=== PATIENT | female | born 1950 | race Caucasian/White ===

== ENCOUNTER 2017-02-25 08:50 | Day surgery (SDC) | payer MEDICARE, OTHER ==
[~2017-02-25] VITALS: Ht 170.2 cm; Wt 90.9 kg
[~2017-02-25 08:50] MED LIST: ADOXA100 MG PO; BONIVA150 MG; CARDIZEM CD120 MG PO; CLARITIN 10 MG10 MG PO; EFFEXOR75 MG PO; FLUTICASONE PRO16 GM NS; NORCO 10/325 TA1 TA1 PO; SINGULAIR10 MG PO; SYNTHROID25 MCG PO; SYNTHROID50 MCG PO; VITAMIN B-6100 MG; VITAMIN D3400 UNI1; VITAMIN D50000 UNIT PO
[2017-02-25 09:27] LABS: BASOPHILS 0.7 % (0-2); HEMATOCRIT 48.5 % (36.0-48.0); HEMOGLOBIN 16.3 g/dL (12-16); LYMPHOCYTES 25.4 % (15-50); MCH 34.5 pg (26.0-34.0); MCHC 33.6 g/dL (31.0-37.0); MCV 102.5 fL (80.0-100.0); MEAN PLATELET VOLUME 9.9 fL (7.4-10.4); MONOCYTES 11.6 % (2-11); NEUTROPHILS 60.3 % (40-80); RBC 4.73 10x6/uL (4.00-5.40); RDW 14.2 % (11.5-14.5); WBC 4.1 10x3/uL (4.8-10.8)
[2017-02-25 09:41] LABS: PLATELET COUNT 147 10x3/uL (130-400)
[2017-02-25 09:42] LABS: CALC OSMOLALITY 273 mosm/kg (275-300); CALCIUM 9.3 mg/dL (8.5-10.1); CARBON DIOXIDE 28.5 mmol/L (21.0-32.0); CHLORIDE - SERUM 100 mmol/L (98-107); CREATININE - SERUM 0.8 mg/dL (0.6-1.3); GLUCOSE 107 mg/dL (74-106); SODIUM 138 mmol/L (136-145); UREA NITROGEN 8 mg/dL (7-18); eGFR NON AFRICAN AMERICAN 75 mL/min (90-120)
[2017-02-25 10:29] VITALS: BP 149/90; Ht 170.2 cm; Wt 90.9 kg
--- NOTE | 2017-02-25 11:02 | NUR ---
INFORMED VALDEMAR LEBRON, (ANESTHESIA FOR GI) THAT SHE STATES FENTANYL CAUSED HER TO GO INTO ATRIAL FIB LAST TIME SHE HAD A GI PROCEDURE. SHE STATES "IT WAS THE [facility]". NOTIFIED OF PT'S STATEMENT OF THAT.
--- NOTE | 2017-02-25 16:57 | NUR ---
1300-RECD FROM GI LAB. ALERT. DR SALDIVAR IN TO REPORT FINDINGS. 1315-FULL LIQUIDS SERVED. PASSING FLATUS. 1330-IV D/C 1345-DISCHARGE INSTRUCTIONS REVIEWED. 1400-D/C HOME VIA WHEELCHAIR WITH FRIEND, BOLIVAR.
--- NOTE | 2017-02-26 11:02 | OP ---
PATIENT NAME: JOYCE BULLARD MEDICAL RECORD: [id number] :46 [facility] AD[facility]ION DATE: SURGEON: JI SALDIVAR DO DATE OF OPERATION: 02/25/2017 PROCEDURE: Colonoscopy with polypectomy. INDICATIONS FOR PROCEDURE: Colorectal cancer screening. SCOPE: Olympus video pediatric colonoscope. MEDICATIONS: Propofol 450 mg IV per anesthesia. WITHDRAWAL TIME: 12 minutes. ESTIMATED BLOOD LOSS: Minimal. COMPLICATIONS: None. FINDINGS: Informed consent was given. The patient was made comfortable with the above medication. After reaching an adequate level of sedation by slow IV push, the patient was placed on her left side. A digital rectal examination was performed and was normal. The endoscope was then advanced under direct visualization through the rectum to the cecum with visualization of the appendiceal orifice and ileocecal valve. The endoscope was slowly withdrawn and the mucosa was carefully examined. The prep quality was fair. In the ascending colon, there was a single benign-appearing sessile polyp, which measured approximately 6 mm in diameter. It was removed using a hot snare in 1 piece and completely retrieved. In the descending colon, there were two separate benign-appearing sessile polyps, which ranged in size from 4-6 mm in diameter. They were both removed using a hot snare in 1 piece and completely retrieved. In the rectum, there was another benign-appearing sessile polyp, which measured approximately 5-6 mm in diameter. It was removed using a hot snare in 1 piece and completely retrieved. There was evidence of mild diverticulosis of the sigmoid colon. Retroflexion was performed in the rectum with visualization of grade I internal hemorrhoids without bleeding. The endoscope was then withdrawn from the patient. The patient tolerated the procedure well and there were no complications. IMPRESSION: 1. Four separate benign-appearing sessile polyps as described above removed using a hot snare. 2. Mild diverticulosis of the sigmoid colon. 3. Grade I internal hemorrhoids without bleeding. PLAN AND RECOMMENDATIONS: 1. Discharge home when recovery parameters are met. 2. Follow up biopsy specimen results. 3. High fiber diet. 4. Continue current medications. 5. Recall colonoscopy in 3 years based on the number and types of polyps removed on today's examination. TRANSINT:[id number] Voice Confirmation ID: [id number] DOCUMENT ID: [id number] OPERATIVE REPORT [id number] JOYCE BULLARD JI SALDIVAR DO at 1102 CC: [id number] DICTATION DATE: 02/25/17 1242 ENVIRONMENTAL SERVICES FLOOR TECH: 02/25/17 1257 [facility] [place] 02/25/17 [id number] [place] [address]
== END 2017-02-25 14:00 | disposition home or self-care (01) ==
LOC: D.OPS 08:50
PROVIDERS: Anesthesiology
DX: Z12.11 Encounter for screening for malignant neoplasm of colon (principal); K63.5 Polyp of colon; K64.0 First degree hemorrhoids; K57.30 Diverticulosis of large intestine without perforation or abscess without bleeding; Z01.812 Encounter for preprocedural laboratory examination

== ENCOUNTER 2018-04-08 00:36 | Inpatient (IN) | payer MEDICARE, OTHER ==
[~2018-04-08] VITALS: Ht 170.2 cm; Wt 108.9 kg
[2018-04-08] VITALS (45 sets, daily range): BP systolic 78–177; BP diastolic 34–93; Ht 170.2 cm; Wt 108.9 kg
[~2018-04-08 00:36] MED LIST changes: -VITAMIN B-6100 MG; +VITAMIN B-6100 MG PO; -VITAMIN D3400 UNI1; +VITAMIN D3400 UNI1 PO
[2018-04-08] MEDS ORDERED: ELIQUIS5 MG PO (00:39)
[2018-04-08] MEDS ORDERED: LIPITOR40 MG PO (00:40)
[2018-04-08] MEDS ORDERED: BAYER CHEWABLE81 MG PO (00:40)
[2018-04-08 01:15] LABS: EOSINOPHILS 1.6 % (0-7); HEMATOCRIT 20.7 % (36.0-48.0); IMMATURE GRANULOCYTES 0.2 % (0-5); LYMPHOCYTES 18.9 % (15-50); MCH 30.1 pg (26.0-34.0); MCHC 31.9 g/dL (31.0-37.0); MCV 94.5 fL (80.0-100.0); MEAN PLATELET VOLUME 8.9 fL (7.4-10.4); MONOCYTES 17.6 % (2-11); NEUTROPHILS 60.7 % (40-80); PLATELET COUNT 127 10x3/uL (130-400); RBC 2.19 10x6/uL (4.00-5.40); RDW 17.4 % (11.5-14.5); WBC 5.1 10x3/uL (4.8-10.8)
[2018-04-08 01:18] LABS: HEMOGLOBIN 6.6 g/dL (12-16)
[2018-04-08 01:21] LABS: APTT 39.1 SECONDS (22.8-39.4); INR 1.94 (0.85-1.17); PROTIME 21.5 SECONDS (11.6-15.0)
[2018-04-08 01:35] LABS: ALBUMIN 2.2 g/dL (3.4-5.0); ALKALINE PHOSPHATASE 79 U/L (46-116); ALT (SGPT) 27 U/L (10-68); BILIRUBIN - TOTAL 1.52 mg/dL (0.2-1.3); CALC OSMOLALITY 278 mosm/kg (275-300); CARBON DIOXIDE 25.3 mmol/L (21.0-32.0); CHLORIDE - SERUM 104 mmol/L (98-107); CREATININE - SERUM 0.6 mg/dL (0.6-1.3); GLUCOSE 133 mg/dL (74-106); POTASSIUM - SERUM 3.2 mmol/L (3.5-5.1); PROTEIN - SERUM 5.7 g/dL (6.4-8.2); SODIUM 139 mmol/L (136-145); UREA NITROGEN 10 mg/dL (7-18); eGFR NON AFRICAN AMERICAN > 90 mL/min (90-120)
[2018-04-08 02:00] LABS: CKMB 1.4 U/L (0.0-3.6); CREATINE KINASE 50 UL (21-215); MAGNESIUM - SERUM 1.6 mg/dL (1.8-2.4)
[2018-04-08 02:01] LABS: TROPONIN-I 0.195 ng/mL (0.000-0.060)
--- NOTE | 2018-04-08 02:16 | NUR ---
CONSENT SIGNED FOR BLOOD TRANSFUSION.
--- NOTE | 2018-04-08 02:45 | NUR ---
BLOOD TRANSFUSION STARTED.
--- NOTE | 2018-04-08 02:50 | NUR ---
PT STATES SHE NEEDS TO HAVE A BM. REFUSES BEDPAN. ASSISTED PT TO BSC. APPX 400CC DARK TARRY STOOL PRESENT.
--- NOTE | 2018-04-08 03:12 | NUR ---
REPORT TO JULIANO BRAVO.
--- NOTE | 2018-04-08 03:12 | NUR ---
REPORT TO JULIANO BRAVO
--- NOTE | 2018-04-08 04:02 | NUR ---
DR. HODGE CONTACTED @ REQUEST OF ICU. HE ADVISED PT SHOULD CONTINUE TO RECEIVE BLOOD TO CORRECT ELEVATED HR.
--- NOTE | 2018-04-08 04:15 | NUR ---
PT ARRIVED ON UNIT VIA STRETCHER ACCOMPANIED BY ER STAFF. PT HOOKED UP TO ALL ICU MONITORS, VITAL SIGNS TAKEN. HEMODYNAMICALLY STABLE AT THIS TIME.
--- NOTE | 2018-04-08 04:45 | NUR ---
1 UNIT PRBC INITIATED.
--- NOTE | 2018-04-08 08:20 | NUR ---
PT RESTING IN BED, A/O, RESP EVEN AND UNLABORED. IV TO LEFT WRIST WITH NS@100ML/HR INFUSING VIA PUMP, SITE WITHOUT REDNESS OR EDEMA. DENIES PAIN OR ABDOMINAL TENDERNESS AT THIS TIME. ASSISTED TO BSC, PT BEING ABLE TO VOID. DENIES FURTHER NEEDS AT THIS TIME. CL WITHIN REACH. WILL CONTINUE TO MONITOR. CONSENTS FOR EGD OBTAINED AT THIS TIME.
[2018-04-08 08:43] LABS: HEMATOCRIT 26.2 % (36.0-48.0); HEMOGLOBIN 8.5 g/dL (12-16)
--- NOTE | 2018-04-08 10:03 | NUR ---
REC'D TO CVICU. ALL MONITORING EQUIPMENT ATTACHED AND ALARMS SET.
--- NOTE | 2018-04-08 15:55 | NUR ---
REC'D CALL FROM GI LAB. PREOP MEDS GIVEN. VOICE HERE.
--- NOTE | 2018-04-08 18:18 | NUR ---
UGI DONE BY DR MASCORRO. SEDATION BY ANESTHESIA. VSS. PT AWAKE AND ALERT. STARTED CL DIET ORDERED.
--- NOTE | 2018-04-08 19:10 | NUR ---
REC'D TO CARE. BUSINESS AREA MANAGER PER FLOWSHEET. PT AWAKE AND ORIENTED. VSS. GIVEN CLEAR LIQUIDS PER MD ORDER AND PT REQUEST. PROTONIX GTT INFUSING TO L PIV, NO REDNESS OR SWELLING AT SITE. CM - NSR. PT DENIES PAIN OR OTHER NEEDS. C/L IN REACH.
--- NOTE | 2018-04-08 19:40 | NUR ---
UP TO BSC. LOOSE BLACK/GREEN STOOL AND URINE. TEDDY-CARE DONE. ADULT BRIEF ON PER PT REQUEST. BACK TO BED. ALARMS ON AND C/L IN REACH.
[2018-04-08] MEDS ORDERED: TOPROL XL50 MG PO (20:21)
--- NOTE | 2018-04-08 20:26 | NUR ---
DR. YANG PAGED AND NOTIFIED OF SBP 177, CM - SR 88. CORDARONE GTT NOT INFUSING. NEW ORDER REC'D.
--- NOTE | 2018-04-08 20:35 | NUR ---
DR. BRADY PAGED AND UPDATED, ORDERS CLARIFIED. NEW ORDERS REC'D.
--- NOTE | 2018-04-08 20:43 | NUR ---
PT VIKA UPDATED OVER PHONE WITH PASSWORD AND PTS PERMISSION.
[2018-04-08 21:18] LABS: HEMATOCRIT 26.3 % (36.0-48.0); HEMOGLOBIN 8.8 g/dL (12-16)
--- NOTE | 2018-04-08 22:00 | NUR ---
BEGIN 1 UNIT PRBC TRANSFUSION PER MD ORDER, PER HOSPITAL PROTOCOL. PT VERBALIZES CONSENT AND UNDERSTANDING OF S/S TO REPORT. ALARMS ON AND C/L IN REACH.
--- NOTE | 2018-04-08 22:15 | NUR ---
PRBC INFUSING WITH NO ADVERSE S/S.
--- NOTE | 2018-04-08 23:03 | NUR ---
REASSESSMENT PER FLOWSHEET, NO ACUTE CHANGES. PRBCS INFUSING WITHOUT DIFFICULTY. PT DENIES PAIN OR NEEDS. REPOSITIONED SELF TO R SIDE. VSS. C/L IN REACH.
[2018-04-09] VITALS (14 sets, daily range): BP systolic 130–171; BP diastolic 55–76
--- NOTE | 2018-04-09 | NUR ---
PT TO BSC, VOIDED 200ML CLOUDY YELLOW URINE. TEDDY-CARE PER PT AND BACK TO BED. PRBC INFUSING WITH OUT DIFFICULTY.
--- NOTE | 2018-04-09 01:00 | NUR ---
PRBCS COMPLETE, NO SIGN OF ADVERSE RXN.
--- NOTE | 2018-04-09 03:30 | NUR ---
REASSESSMENT PER FLOWSHEET, NO ACUTE CHANGES. VSS.
--- NOTE | 2018-04-09 05:00 | NUR ---
RESTING QUIETLY, NO SIGN OF DISTRESS.
[2018-04-09 05:49] LABS: BASOPHILS 1.2 % (0-2); EOSINOPHILS 3.8 % (0-7); HEMATOCRIT 29.2 % (36.0-48.0); HEMOGLOBIN 9.5 g/dL (12-16); IMMATURE GRANULOCYTES 0.2 % (0-5); LYMPHOCYTES 18.9 % (15-50); MCH 29.2 pg (26.0-34.0); MCHC 32.5 g/dL (31.0-37.0); MEAN PLATELET VOLUME 9.2 fL (7.4-10.4); NEUTROPHILS 57.9 % (40-80); PLATELET COUNT 123 10x3/uL (130-400); RDW 19.3 % (11.5-14.5); WBC 4.2 10x3/uL (4.8-10.8)
[2018-04-09 05:51] LABS: CALC OSMOLALITY 276 mosm/kg (275-300); CARBON DIOXIDE 25.2 mmol/L (21.0-32.0); CHLORIDE - SERUM 106 mmol/L (98-107); CREATININE - SERUM 0.6 mg/dL (0.6-1.3); GLUCOSE 101 mg/dL (74-106); PHOSPHOROUS 3.2 mg/dL (2.5-4.9); POTASSIUM - SERUM 3.2 mmol/L (3.5-5.1); SODIUM 140 mmol/L (136-145); UREA NITROGEN 8 mg/dL (7-18); eGFR NON AFRICAN AMERICAN > 90 mL/min (90-120)
[2018-04-09 05:52] LABS: MAGNESIUM - SERUM 2.1 mg/dL (1.8-2.4)
[2018-04-09 05:59] LABS: MCV 89.8 fL (80.0-100.0); RBC 3.25 10x6/uL (4.00-5.40)
--- NOTE | 2018-04-09 06:15 | NUR ---
UP TO BSC, VOIDED 250ML CLOUDY, TAY URINE. TEDDY-CARE PER PT , THEN BACK TO BED. C/L IN REACH.
[2018-04-09] MEDS ORDERED: BREO ELLIPTA 11 EACH INH (06:30)
[2018-04-09] MEDS ORDERED: VENTOLIN HFA18 GM INH (06:43)
[2018-04-09] MEDS ORDERED: AMIODARONE HCL200 MG PO (12:23)
--- NOTE | 2018-04-09 12:39 | NUR ---
VOICE HERE ON ROUNDS. OK TO DC HOME IF OK WITH PCP. PAGED DR HODGE AND REC'D CALL BACK WITH ORDERS.
[2018-04-09] MEDS ORDERED: CARAFATE1 G PO (13:59)
[2018-04-09] MEDS ORDERED: PROTONIX40 MG PO (13:59)
--- NOTE | 2018-04-09 15:12 | MORECARE ---
CASE MANAGEMENT DISCHARGE SUMMARY PATIENT: JOYCE BULLARD UNIT: [id number] ADM DATE: 04/08/18 AGE: 67 : 48 SEX: F ROOM/BED: [facility] AUTHOR: CHARLY HAYNES PHYSICIAN: REFERRING PHYSICIAN: KEVYN GONZALEZ MD DATE OF SERVICE: 04/09/18 Discharge Plan Patient Name: JOYCE BULLARD [facility] : 1950 Planned Disposition: Home Anticipated Discharge Date: Discharge Date: Expected LOS: Initial Reviewer: [email or web address] Initial Review Date: 04/09/2018 Generated: 04/09/18 4:11 pm DCPIA - Discharge Planning Initial Assessment Updated by [email or web address]: Eulalia Deleon on 04/09/18 3:08 pm * Is the patient Alert and Oriented? Yes * How many steps to enter\exit or inside your home? * PCP Lui Sanford * [facility] * Preadmission Environment Home with Family * ADLs Independent * Equipment Walker * List name and contact numbers for known caregivers / representatives who currently or will assist patient after discharge: Monica lozoya [phone] Juan C Dwyer [id number] [phone], * Verbal permission to speak to the caregivers and representatives has been obtained from the patient. N/A * Community resources currently utilized None * Additional services required to return to the preadmission environment? No * Can the patient safely return to the preadmission environment? Yes * Has this patient been hospitalized within the prior 30 days at any hospital? Yes Patient Name: JOYCE BULLARD Page [phone] at 1512 All edits/amendments must be made on the electronic document DICTATION DATE: 04/09/18 151 SMOKE CONTROL SUPERVISOR: JIMMY 04/09/18 151 RPT#: [id number] DC DATE: STATUS: ADM IN [facility] [address] [place] [address] END OF REPORT
--- NOTE | 2018-04-09 15:15 | NUR ---
REVIEWED HOME MEDS WITH PATIENT, NEW MATERIAL ON NEW MEDICATIONS PROTONIX, CARAFATE AND CORDARON. PATIENT REVIEWED. ALL MEDS CALLED INTO PHARMACY TO BE DELIVERIED TO PATIENT'S NIECE HOME. DISCHARGE PER WHEELCHAIR WITH YOUSIF. MONITOR SR ON DISCHARGE.
--- NOTE | 2018-04-09 15:30 | MORECARE ---
CASE MANAGEMENT DISCHARGE SUMMARY PATIENT: JOYCE BULLARD UNIT: [id number] ADM DATE: 04/08/18 AGE: 67 : 48 SEX: F [facility] AUTHOR: [place]ALL[place],DOC PHYSICIAN: REFERRING PHYSICIAN: KEVYN GONZALEZ MD DATE OF SERVICE: 04/09/18 Discharge Plan Patient Name: JOYCE BULLARD Facility: [facility]:[place] : 1950 Planned Disposition: Home Anticipated Discharge Date: Discharge Date: Expected LOS: Initial Reviewer: [email or web address] Initial Review Date: 04/09/2018 Generated: 04/09/18 4:30 pm Comments DCP- Discharge Planning Updated by [email or web address]: Eulalia Deleon on 04/09/18 2:[address] Patient Name: JOYCE BULLARD Admission Status: ER Accout number: [id number] Admission Date: 04-08-2018 : 1950 Admission Diagnosis: Attending: KEVYN GONZALEZ Current LOS: 1 Anticipated DC Date: Planned Disposition: Home Primary Insurance: MEDICARE A & B Discharge Planning Comments: CM met with patient at bedside. Patient states she has been living with her niece Monica Osuna [phone]. since her last hospitalization @ [facility]. Patient states she plans on returning to Monica's home upon discharge. Patient denies any discharge needs at this time. IMM explained and served 04/09/18 @ 1445. CM will continue to follow and assist as needed with discharge planning / needs. Inside Sales Lead: Eulalia Deleon DCPIA - Discharge Planning Initial Assessment Updated by [email or web address]: Eulalia Deleon on 04/09/18 3:08 pm * Is the patient Alert and Oriented? Yes * How many steps to enter\exit or inside your home? * PCP Lui Sanford * [facility] * Preadmission Environment Home with Family * ADLs Independent * Equipment Walker * List name and contact numbers for known caregivers / representatives who currently or will assist patient after discharge: Monica Osuna niece [phone] [facility] [id number] [phone], * Verbal permission to speak to the caregivers and representatives has been obtained from the patient. N/A * Community resources currently utilized None * Additional services required to return to the preadmission environment? No * Can the patient safely return to the preadmission environment? Yes * Has this patient been hospitalized within the prior 30 days at any hospital? Yes Coverage Notice Reviewer: [email or web address] Makenzie Deleon Notice Issued Date-Time: 04/09/2018 14:45 Notice Type: IM Discharge Notice Notice Delivered To: Patient Relationship to Patient: Self Police Investigator Name: Delivery Method: HAND - Hand Delivered Inna Days: Prior Verbal Notification: Recipient Understood Notice: Yes Recipient Signature: Yes Med Rec Note Co-signed by Attending: Coverage Notice Comment: Last DP export: 04/09/18 2:11 pm Patient Name: JOYCE BULLARD Page [phone] at 1530 All edits/amendments must be made on the electronic document DICTATION DATE: 04/09/18 1530 PIER MASTER ASSISTANT: JIMMY 04/09/18 1530 RPT#: [id number] DC DATE: STATUS: ADM IN [facility] [address] [place] [address] END OF REPORT
--- NOTE | 2018-04-10 10:04 | MORECARE ---
CASE MANAGEMENT DISCHARGE SUMMARY PATIENT: JOYCE BULLARD UNIT: [id number] ADM DATE: 04/08/18 AGE: 67 : 48 SEX: F ROOM/BED: D[facility] AUTHOR: DALLAS,DOC PHYSICIAN: REFERRING PHYSICIAN: KEVYN GONZALEZ MD DATE OF SERVICE: 04/10/18 Discharge Plan Patient Name: JOYCE BULLADR Facility: [facility]:[place] : 1950 Planned Disposition: Home Anticipated Discharge Date: Discharge Date: 04/09/2018 Expected LOS: Initial Reviewer: [email or web address] Initial Review Date: 04/09/2018 Generated: 04/10/18 11:04 am Comments DCP- Discharge Planning Updated by [email or web address]: Eulalia Deleon on 04/09/18 2:[address] Patient Name: JOYCE BULLARD Admission Status: ER Accout number: [id number] Admission Date: 04-08-2018 : 1950 Admission Diagnosis: Attending: KEVYN GONZALEZ Current LOS: 1 Anticipated DC Date: Planned Disposition: Home Primary Insurance: MEDICARE A & B Discharge Planning Comments: CM met with patient at bedside. Patient states she has been living with her niece Monica Osuna [phone]. since her last hospitalization @ [facility]. Patient states she plans on returning to Monica's home upon discharge. Patient denies any discharge needs at this time. IMM explained and served 04/09/18 @ 6455. CM will continue to follow and assist as needed with discharge planning / needs. Varnish Finisher: Eulalia Deleon DCPIA - Discharge Planning Initial Assessment Updated by [email or web address]: Eulalia Deleon on 04/09/18 3:08 pm * Is the patient Alert and Oriented? Yes * How many steps to enter\exit or inside your home? * PCP Lui Sanford * [facility] [place] [facility] * Preadmission Environment Home with Family * ADLs Independent * Equipment Walker * List name and contact numbers for known caregivers / representatives who currently or will assist patient after discharge: Monica Osuna niece [phone] [facility] [id number] [phone], * Verbal permission to speak to the caregivers and representatives has been obtained from the patient. N/A * Community resources currently utilized None * Additional services required to return to the preadmission environment? No * Can the patient safely return to the preadmission environment? Yes * Has this patient been hospitalized within the prior 30 days at any hospital? Yes Coverage Notice Reviewer: [id number] - Eulalia Deleon Notice Issued Date-Time: 04/09/2018 14:45 Notice Type: IM Discharge Notice Notice Delivered To: Patient Relationship to Patient: Self Smog Technician Name: Delivery Method: HAND - Hand Delivered Inna Days: Prior Verbal Notification: Recipient Understood Notice: Yes Recipient Signature: Yes Med Rec Note Co-signed by Attending: Coverage Notice Comment: Last DP export: 04/09/18 2:30 pm Patient Name: JOYCE BULLARD Page [phone] at 1004 All edits/amendments must be made on the electronic document DICTATION DATE: 04/10/18 1004 DIVIDER OPERATOR: JIMMY 04/10/18 1004 RPT#: [id number] DC DATE:04/09/18 STATUS: DIS IN [facility] [address] [place] [address] END OF REPORT
--- NOTE | 2018-04-10 13:30 | EC ---
PATIENT:JOYCE BULLARD DATE OF SERVICE: 04/08/18 SEX: F MEDICAL RECORD: [id number] DATE OF : [birth year] LOCATION:[place] [address] AGE OF PATIENT: 67 ADMISSION DATE: 04/08/18 REFERRING PHYSICIAN: INTERPRETING PHYSICIAN: VÍCTOR HODGE MD ECHOCARDIOGRAM REPORT ECHO CHARGES 4 ECHO COMPLETE Date: 04/08/18 CLINICAL DIAGNOSIS: AFIB ECHOCARDIOGRAPHIC MEASUREMENTS (adult normal given) AC root (d.<3.7cm) 3.7 cm LV Septum d (<1.2 cm> 1.1 cm Valve Excursion 1.5 cm LV Septum (systole) 1.7 cm Left Atria (s.<4.0cm> 5.0 cm LVPW d(<1.2cm) 1.4 cm RV (d.<2.3cm) 6.3 cm LVPW (sytole) 1.6 cm LV diastole(<5.6CM) 5.8 cm MV E-F(>70mm/sec) cm LV systole 3.4 cm LVOT Diameter 2.0 cm MV exc.(>10mm) 1.7 cm Est.ejection fraction (50-75%) % DOPPLER: LVIT cm/sec A 78.0 cm/sec E 131 cm/sec LA cm/sec RVSP 34 mmHg LVOT 99 cm/sec AOP1/2T m/s Asc. Ao 155 cm/sec RVOT 90 cm/sec RA cm/sec PA 108 cm/sec AV Gradient Peak 9.63 mmHg AV Mean 6.06 mmHg AV Area 1.6 cm MV Gradient Peak 9.54 mmHg MV Mean 2.94 mmHg MV Area cm COMMENTS: Sole Filler: 2 BRAIN IBARRA Automotive Electrician: 3 Dr. Magallon TAPE# PACS Pericardial Effusion N DATE OF SERVICE: Adequate 2D echo, color flow, spectral Doppler, and M-Mode. No LVH. LV internal dimensions are normal. LV wall motion is normal. EF is greater than or equal to 55%. Aortic valve is tricuspid. No evidence of stenosis on Doppler interrogation. Left atrium is dilated to 5-cm. Mitral valve shows no prolapse. Mild MR. Right-sided chamber is grossly normal. Mild TR. TRANSINT:[id number] Voice Confirmation ID: [id number] DOCUMENT ID: [id number] ECHOCARDIOGRAM REPORT [id number] JOYCE BULLARD,VÍCTOR Wesley MD at 1330 CC: [id number] DICTATION DATE: 04/09/18828 DYNAMICS AX TECHNICAL ARCHITECT: 04/09/18 1007 DIS IN 04/09/[address] [facility] [address] [facility] [place] [address]
== END 2018-04-09 16:00 | disposition home or self-care (01) | DRG 378 ==
LOC: D.ER 00:36 → D.ICU 02:49 → D.CVICU 02:49
PROVIDERS: Family Medicine; Internal Medicine Gastroenterology; ADMIT Family Medicine
PROC: 0DJ08ZZ Inspection of Upper Intestinal Tract, Via Natural or Artificial Opening Endoscopic (ICD-10-PCS; principal; 2018-04-08 14:00)
DX: K25.4 Chronic or unspecified gastric ulcer with hemorrhage (principal); D62 Acute posthemorrhagic anemia; D64.9 Anemia, unspecified; I48.91 Unspecified atrial fibrillation; Z79.01 Long term (current) use of anticoagulants; E87.6 Hypokalemia; E83.42 Hypomagnesemia; K31.7 Polyp of stomach and duodenum; K44.9 Diaphragmatic hernia without obstruction or gangrene; K21.0 Gastro-esophageal reflux disease with esophagitis; Z85.3 Personal history of malignant neoplasm of breast

== ENCOUNTER 2018-05-04 14:48 | Inpatient (IN) | payer MEDICARE, OTHER ==
[~2018-05-04] VITALS: Ht 170.2 cm; Wt 97.7 kg
[~2018-05-04 14:48] MED LIST changes: +AMIODARONE HCL200 MG PO; +BAYER CHEWABLE81 MG PO; +BREO ELLIPTA 11 EACH INH; +CARAFATE1 G PO; +ELIQUIS5 MG PO; +LIPITOR40 MG PO; +PROTONIX40 MG PO; +TOPROL XL50 MG PO; +VENTOLIN HFA18 GM INH
[2018-05-04 15:28] LABS: BASOPHILS 0 % (0-2); EOSINOPHILS 0 % (0-7); HEMATOCRIT 31.2 % (36.0-48.0); HEMOGLOBIN 9.7 g/dL (12-16); IMMATURE GRANULOCYTES 0.1 % (0-5); LYMPHOCYTES 5.2 % (15-50); MCH 26.5 pg (26.0-34.0); MCHC 31.1 g/dL (31.0-37.0); MCV 85.2 fL (80.0-100.0); MEAN PLATELET VOLUME 9.2 fL (7.4-10.4); MONOCYTES 6.7 % (2-11); PLATELET COUNT 110 10x3/uL (130-400); RBC 3.66 10x6/uL (4.00-5.40)
[2018-05-04 16:05] LABS: INR 1.65 (0.85-1.17); PROTIME 18.9 SECONDS (11.6-15.0)
[2018-05-04 16:12] LABS: ALBUMIN 2.4 g/dL (3.4-5.0); ALKALINE PHOSPHATASE 76 U/L (46-116); ALT (SGPT) 31 U/L (10-68); BILIRUBIN - TOTAL 2.77 mg/dL (0.2-1.3); CALC OSMOLALITY 282 mosm/kg (275-300); CALCIUM 7.9 mg/dL (8.5-10.1); CHLORIDE - SERUM 105 mmol/L (98-107); CREATININE - SERUM 0.7 mg/dL (0.6-1.3); GLUCOSE 133 mg/dL (74-106); PROTEIN - SERUM 6.2 g/dL (6.4-8.2); SODIUM 142 mmol/L (136-145); UREA NITROGEN 7 mg/dL (7-18); eGFR NON AFRICAN AMERICAN 88 mL/min (90-120)
[2018-05-04 16:33] LABS: C-REACTIVE PROTEIN 0.5 mg/dL (0.0-0.9); CKMB 0.3 U/L (0.0-3.6); CREATINE KINASE 31 UL (21-215); PRO BNP 1056 pg/mL (0-125)
[2018-05-04 16:34] LABS: TROPONIN-I 0.173 ng/mL (0.000-0.060)
--- NOTE | 2018-05-04 16:35 | NUR ---
CRITICAL LAB TROPONIN 0.173. NOTIFIED EDP.
--- NOTE | 2018-05-04 16:45 | NUR ---
URINE SENT TO LAB
[2018-05-04 16:53] LABS: APPEARANCE CLEAR (CLEAR); BILIRUBIN 1+ (NEGATIVE); COLOR DK YELLOW (YELLOW); GLUCOSE NEGATIVE (NEGATIVE); KETONE NEGATIVE (NEGATIVE); NITRITE NEGATIVE (NEGATIVE); PROTEIN TRACE mg/dL (NEGATIVE)
[2018-05-04 16:54] LABS: RED CELLS - URINE 0-5 /hpf (0-5); WHITE CELLS - URINE 0-5 /hpf (0-5)
[2018-05-04 16:55] LABS: BACTERIA FEW /hpf (NONE SEEN); EPITHELIAL CELLS 0-5 /hpf (0-5)
--- NOTE | 2018-05-04 17:59 | NUR ---
POTASSIUM CHLORIDE INFUSING AT 50ML/HR, UNABLE TO TOLERATE 100ML/HR
[2018-05-04 18:11] VITALS: BP 127/65
[2018-05-04 19:58] VITALS: BP 107/56
[2018-05-04] MEDS ORDERED: PACERONE200 MG PO (20:34)
[2018-05-04] MEDS ORDERED: PROTONIX40 MG PO (20:36)
[2018-05-04 20:50] VITALS: BP 107/56; BMI 33.7
--- NOTE | 2018-05-05 00:21 | NUR ---
RECIEVED REEPORT FROM OFFGOING NURSE. ARRIVED TO FLOOR AT 1940 FROM ER. ALERT AND ORIENTED X4. ASSESSMENTS COMPLETED. NIECE CALLED ASKING FOR LAB RESULTS. SPOKE WITH PT AND EXPLAINED THAT THE DOCTOR WOULD HAVE TO GIVE THEM RESULTS AND THAT THE NIECE NEEDED TO BE HERE WHEN THE DOCTOR WAS HERE. PT CALLED NIECE AND EXPLAINED.DR. VERONICA HAS BEEN NOTIFIED OF THIS ADMISSION.
[2018-05-05 00:34] VITALS: BP 121/62
[2018-05-05 05:27] VITALS: BP 113/56
[2018-05-05 06:58] LABS: BASOPHILS 0 % (0-2); EOSINOPHILS 0.4 % (0-7); HEMATOCRIT 28.3 % (36.0-48.0); HEMOGLOBIN 8.9 g/dL (12-16); IMMATURE GRANULOCYTES 0.4 % (0-5); LYMPHOCYTES 16.2 % (15-50); MCH 26.9 pg (26.0-34.0); MCHC 31.4 g/dL (31.0-37.0); MCV 85.5 fL (80.0-100.0); MEAN PLATELET VOLUME 9.5 fL (7.4-10.4); MONOCYTES 10.4 % (2-11); NEUTROPHILS 72.6 % (40-80); PLATELET COUNT 111 10x3/uL (130-400); RBC 3.31 10x6/uL (4.00-5.40); RDW 19.4 % (11.5-14.5)
--- NOTE | 2018-05-05 07:25 | NUR ---
ASSESSMENT COMPLETED. ALERT AND ORIENTED. TELEMERTY SHOWS SR. O2 AT 2 L/M PER NC. UP WITH ASSIST. RIGHT WRIST AND LEFT WRIST SL. SR UP WITH CALL LIGHT IN REACH. NPO FOR TEST.
[2018-05-05 07:40] LABS: CALCIUM 7.8 mg/dL (8.5-10.1); CARBON DIOXIDE 25.6 mmol/L (21.0-32.0); CHLORIDE - SERUM 108 mmol/L (98-107); CREATININE - SERUM 0.7 mg/dL (0.6-1.3); GLUCOSE 93 mg/dL (74-106); POTASSIUM - SERUM 3.1 mmol/L (3.5-5.1); SODIUM 142 mmol/L (136-145); eGFR NON AFRICAN AMERICAN 88 mL/min (90-120)
[2018-05-05 07:44] LABS: CALC OSMOLALITY 281 mosm/kg (275-300); TROPONIN-I 0.151 ng/mL (0.000-0.060); UREA NITROGEN 9 mg/dL (7-18)
--- NOTE | 2018-05-05 08:00 | NUR ---
RESTING QUIETLY RESP UNLABORED NAD NOTED MONITOR SHOWS SR RATE 64
[2018-05-05 09:31] VITALS: BP 125/67
[2018-05-05 12:49] VITALS: BP 133/69
[2018-05-05 13:31] VITALS: Ht 170.2 cm; Wt 97.7 kg
--- NOTE | 2018-05-05 16:29 | NUR ---
SCD'S ON PER SABRINA/CANNON PINION ADJUSTER
[2018-05-05 17:06] VITALS: BP 115/72
--- NOTE | 2018-05-05 19:48 | NUR ---
RESUMED CARE OF PT, LYING IN BED RESPIRATIONS EVEN AND UNLABORED ON 2LPM VIA NC. 67 SR ON TELEMETRY. RIGHT AND LEFT WRIST SALINE LOCKED. PLAN OF CARE DISCUSSED. SEE NURSE ASSESSMENT. CALL LIGHT IN REACH.
[2018-05-05 20:00] VITALS: BP 120/58
[2018-05-06] VITALS: BP 131/68
[2018-05-06 04:59] LABS: BASOPHILS 0.2 % (0-2); EOSINOPHILS 2.3 % (0-7); HEMOGLOBIN 9.6 g/dL (12-16); IMMATURE GRANULOCYTES 0.2 % (0-5); MCH 26.3 pg (26.0-34.0); MCV 84.9 fL (80.0-100.0); MEAN PLATELET VOLUME 9.5 fL (7.4-10.4); MONOCYTES 14.2 % (2-11); NEUTROPHILS 66.1 % (40-80); PLATELET COUNT 118 10x3/uL (130-400); RBC 3.65 10x6/uL (4.00-5.40); RDW 19.7 % (11.5-14.5); WBC 4.9 10x3/uL (4.8-10.8)
[2018-05-06 05:17] LABS: ALBUMIN 2.2 g/dL (3.4-5.0); ANION GAP 12.3 mmol/L (8-16); BILIRUBIN - TOTAL 2.3 mg/dL (0.2-1.3); CARBON DIOXIDE 25.1 mmol/L (21.0-32.0); MAGNESIUM - SERUM 2.1 mg/dL (1.8-2.4); POTASSIUM - SERUM 3.4 mmol/L (3.5-5.1); PROTEIN - SERUM 5.9 g/dL (6.4-8.2)
[2018-05-06 05:20] VITALS: BP 132/70
[2018-05-06 05:21] LABS: CREATININE - SERUM 0.9 mg/dL (0.6-1.3)
--- NOTE | 2018-05-06 07:30 | NUR ---
RECEIVED PT IN BED EYES CLOSED RESP UNLABORED NAD NOTED
[2018-05-06 09:17] VITALS: BP 136/79
[2018-05-06 11:46] VITALS: BP 119/61
[2018-05-06 15:46] VITALS: BP 123/65
--- NOTE | 2018-05-06 19:30 | NUR ---
RESUMING PATIENT CARE. PATIENT IS ALERT AND ORIENTED. RESTING COMFORTABLY IN BED. RESPIRATIONS ARE EVEN AND UNLABORED. NO S/S OF DISTRESS. NO C/O PAIN. DENIES NEEDS AT THIS TIME. CALL LIGHT WITHIN REACH. PATIENT BOARD UPDATED. WILL CPOC.
[2018-05-06 20:00] VITALS: BP 148/65
[2018-05-07 00:06] VITALS: BP 129/66
[2018-05-07 04:00] VITALS: BP 142/65
[2018-05-07 06:01] LABS: ALBUMIN 2.2 g/dL (3.4-5.0); ALKALINE PHOSPHATASE 67 U/L (46-116); ALT (SGPT) 32 U/L (10-68); CALCIUM 7.8 mg/dL (8.5-10.1); CARBON DIOXIDE 26.4 mmol/L (21.0-32.0); CHLORIDE - SERUM 108 mmol/L (98-107); CREATININE - SERUM 0.7 mg/dL (0.6-1.3); GLUCOSE 105 mg/dL (74-106); MAGNESIUM - SERUM 1.8 mg/dL (1.8-2.4); POTASSIUM - SERUM 3.3 mmol/L (3.5-5.1); PROTEIN - SERUM 5.8 g/dL (6.4-8.2); SODIUM 143 mmol/L (136-145); eGFR NON AFRICAN AMERICAN 88 mL/min (90-120)
[2018-05-07 06:07] LABS: BASOPHILS 0.2 % (0-2); HEMATOCRIT 30.1 % (36.0-48.0); HEMOGLOBIN 9.5 g/dL (12-16); IMMATURE GRANULOCYTES 0.2 % (0-5); LYMPHOCYTES 20.4 % (15-50); MCH 26.5 pg (26.0-34.0); MCHC 31.6 g/dL (31.0-37.0); MCV 84.1 fL (80.0-100.0); MONOCYTES 16.5 % (2-11); NEUTROPHILS 58.7 % (40-80); PLATELET COUNT 103 10x3/uL (130-400); RBC 3.58 10x6/uL (4.00-5.40); RDW 19.6 % (11.5-14.5)
[2018-05-07 06:13] LABS: CALC OSMOLALITY 282 mosm/kg (275-300); UREA NITROGEN 7 mg/dL (7-18)
[2018-05-07 07:47] VITALS: BP 173/71
--- NOTE | 2018-05-07 09:21 | NUR ---
PT RESTING IN BED. SHIFT ASSESSMENT PERFORMED. MORNING MEDS GIVEN, PT HAD NO COMPLICATIONS. DENIES ANY PAIN AT THIS TIME, DENIES ANY OTHER NEEDS AT THIS TIME, WILL CONT TO FOLLOW PLAN OF CARE
[2018-05-07 11:10] VITALS: BP 181/84
[2018-05-07] MEDS ORDERED: PROTONIX40 MG PO (12:00)
[2018-05-07] MEDS ORDERED: CARAFATE1 G PO (12:01)
[2018-05-07] MEDS ORDERED: Nystatin Oral Susp [ PO (12:07)
--- NOTE | 2018-05-07 15:58 | NUR ---
DISCHARGE PAPERWORK REVIEWED AND SIGNED BY PATIENT. ALL QUESTIONS ANSWERED. PIVS REMOVED, CATHETER TIPS INTACT. NO COMPLICATIONS NOTED. TELEMETRY REMOVED AND GIVEN TO PAPER TESTER, WANDA. NYSTATIN CALLED INTO PATIENT'S PHARMACY. PATIENT ASSISTED TO FRONT OF HOSPITAL VIA WHEELCHAIR.
--- NOTE | 2018-05-07 18:03 | MORECARE ---
CASE MANAGEMENT DISCHARGE SUMMARY PATIENT: JOYCE BULLARD UNIT: [id number] ADM DATE: 05/04/18 AGE: 67 : 48 SEX: F ROOM/BED: D.7886 AUTHOR: CHARLY HAYNES PHYSICIAN: REFERRING PHYSICIAN: STANTON VERONICA MD DATE OF SERVICE: 05/07/18 Discharge Plan Patient Name: JOYCE BULLARD Facility: [facility]:[place] : 1950 Planned Disposition: Home Anticipated Discharge Date: 05/07/18 Discharge Date: 05/07/2018 Expected LOS: 3 Initial Reviewer: [email or web address] Initial Review Date: 05/07/2018 Generated: 05/07/18 7:03 pm DCPIA - Discharge Planning Initial Assessment Updated by [email or web address]: Asif Baez on 05/07/18 6:02 pm * Is the patient Alert and Oriented? Yes * How many steps to enter\exit or inside your home? * PCP DR. LETICIA BUITRAGO, [place] * Pharmacy [facility], [place] * Preadmission Environment Home with Family * ADLs Independent * Equipment Walker * Other Equipment [facility] - MEDICAL EQUIPMENT PROVIDER * List name and contact numbers for known caregivers / representatives who currently or will assist patient after discharge: VIKA KO, * Verbal permission to speak to the caregivers and representatives has been obtained from the patient. N/A * Community resources currently utilized None * Please name any agencies selected above. NONE * Additional services required to return to the preadmission environment? No * Can the patient safely return to the preadmission environment? Yes * Has this patient been hospitalized within the prior 30 days at any hospital? Yes Coverage Notice Reviewer: [id number] - Asif Baez Notice Issued Date-Time: 05/07/2018 15:15 Notice Type: IM Discharge Notice Notice Delivered To: Patient Relationship to Patient: Supervisor Inventory Merchandising Name: Delivery Method: HAND - Hand Delivered Inna Days: Prior Verbal Notification: Recipient Understood Notice: Yes Recipient Signature: Yes Med Rec Note Co-signed by Attending: Coverage Notice Comment: Patient Name: JOYCE BULLARD Page [phone] at 1803 All edits/amendments must be made on the electronic document DICTATION DATE: 05/07/181801 EXPERIMENTAL PHYSICIST: JIMMY 05/07/181801 RPT#: [id number] DC DATE:05/07/18 STATUS: DIS IN [facility] [address] [place] [address] END OF REPORT
--- NOTE | 2018-05-07 18:14 | MORECARE ---
CASE MANAGEMENT DISCHARGE SUMMARY PATIENT: JOYCE BULLARD UNIT: [id number] ADM DATE: 05/04/18 AGE: 67 : 48 SEX: F ROOM/BED: D.8344 AUTHOR: DALLAS,DOC PHYSICIAN: REFERRING PHYSICIAN: STANTON VERONICA MD DATE OF SERVICE: 05/07/18 Discharge Plan Patient Name: JOYCE BULLARD Facility: [facility]:[place] : 1950 Planned Disposition: Home Anticipated Discharge Date: 05/07/18 Discharge Date: 05/07/2018 Expected LOS: 3 Initial Reviewer: [email or web address] Initial Review Date: 05/07/2018 Generated: 05/07/18 7:13 pm Comments DCP- Discharge Planning Updated by [email or web address]: Asif Baez on 05/07/18 5:[address] Patient Name: JOYCE BULLARD Admission Status: ER Accout number: [id number] Admission Date: 05-04-2018 : 1950 Admission Diagnosis:PALPITATIONS Attending: STANTON VERONICA Current LOS: 3 Anticipated DC Date: 05-07-2018 Planned Disposition: Home Primary Insurance: MEDICARE A & B Discharge Planning Comments: CM MET WITH PT IN ROOM TO DISCUSS DISCHARGE PLANNING AND NEEDS. PT REPORTS LIVING AT HOME INDEPENDENTLY WITH HER NIECE. PT HAS WALKER AND DR. BAILEY IS ORDERING A NEBULIZER FOR HER PRIOR TO THIS HOSPITAL STAY. PROVIDER IF [facility] FOR MEDICAL EQUIPMENT. PT HAS NO OUTSIDE SERVICES ASSISTING IN THE HOME. CM DISCUSSED AVAILABILITY OF HOME HEALTH, REHAB SERVICES AND MEDICAL EQUIPMENT. PT DENIES DISCHARGE NEEDS, REPORTS FAMILY WILL PICK HER UP FOR DISCHARGE HOME. IMPORTANT MESSAGE FROM MEDICARE PROVIDED AND EXPLAINED. HOME DESIGNER NURSE NOTIFIED. Propulsion Generator Repairer: Asif Baez DCPIA - Discharge Planning Initial Assessment Updated by [email or web address]: Asif Baez on 05/07/18 6:02 pm * Is the patient Alert and Oriented? Yes * How many steps to enter\exit or inside your home? * PCP DR. LETICIA BUITRAGO, [place] * Pharmacy [facility], [place] * Preadmission Environment Home with Family * ADLs Independent * Equipment Walker * Other Equipment [facility] - MEDICAL EQUIPMENT PROVIDER * List name and contact numbers for known caregivers / representatives who currently or will assist patient after discharge: VIKA KO, * Verbal permission to speak to the caregivers and representatives has been obtained from the patient. N/A * Community resources currently utilized None * Please name any agencies selected above. NONE * Additional services required to return to the preadmission environment? No * Can the patient safely return to the preadmission environment? Yes * Has this patient been hospitalized within the prior 30 days at any hospital? Yes Coverage Notice Reviewer: [email or web address] Makenzie Baez Notice Issued Date-Time: 05/07/2018 15:15 Notice Type: IM Discharge Notice Notice Delivered To: Patient Relationship to Patient: Iron Launder Operator Name: Delivery Method: HAND - Hand Delivered Inna Days: Prior Verbal Notification: Recipient Understood Notice: Yes Recipient Signature: Yes Med Rec Note Co-signed by Attending: Coverage Notice Comment: Last DP export: 05/07/18 5:03 pm Patient Name: JOYCE BULLARD Page [phone] at 1814 All edits/amendments must be made on the electronic document DICTATION DATE: 05/07/181812 EDUCATIONAL ADVISOR: JIMMY 05/07/181812 RPT#: [id number] DC DATE:05/07/18 STATUS: DIS IN [facility] [address] [place] [address] END OF REPORT
--- NOTE | 2018-05-09 12:22 | CN ---
PATIENT NAME:JOYCE BULLARD MEDICAL RECORD: [id number] : 46 LOCATION:[facility] D.2126 ADMIT DATE: 05/04/18 ACCOUNT: [id number] CONSULTING PHYSICIAN: VÍCTOR HODGE MD REFERRING PHYSICIAN: STANTON VERONICA MD DATE OF CONSULTATION: 05/05/2018 HISTORY OF PRESENT ILLNESS: A 67-year-old lady with a known history of atrial fibrillation, has a history of GI bleeding in the past, admitted with marked weakness, cough, low blood pressure, intermittent episodes of atrial fibrillation historically. We are asked to see her concerning her cardiovascular status. PAST MEDICAL HISTORY: Includes: 1. History of hypertension. 2. Hyperlipidemia. 3. Atrial fibrillation. 4. Hypothyroidism, on replacement. ALLERGIES: INCLUDE NEOSPORIN, BACITRACIN, POLYMYXIN. MEDICATIONS: Include Ventolin 2 puffs q.6 hours p.r.n., amiodarone 200 mg p.o. daily, atorvastatin 40 mg p.o. every day, Toprol 50 every day, Protonix 40 every day, Synthroid 50 mcg every day, vitamin D supplementation. SOCIAL HISTORY: Retired home health nurse, nonsmoker. Previously was exercising. REVIEW OF SYSTEMS: The patient reports easy bruising but reports no swollen glands. The patient reports no fever, no night sweats, no significant weight gain, no significant weight loss. No significant exercise tolerance. The patient reports no dry eyes, no irritation, no vision change. Patient reports no difficulty hearing and no ear pain. Patient reports no frequent nose bleeds or nose and sinus problems. Patient reports on arm pain on exertion. No shortness of breath while lying down. No history of heart murmur. Patient reports no cough, no wheezing or coughing up blood. Patient reports no abdominal pain, no vomiting. Normal appetite. No diarrhea and not vomiting blood. No nausea and no constipation. Patient reports no incontinence. No difficulty urinating. No hematuria. No increased frequency. Patient reports no muscle aches. No weakness, no arthralgias, no back pain. No swelling of the extremities. Patient reports no abnormal mole, no jaundice, no rashes. Reports no loss of consciousness. No weakness and no numbness. No seizures, dizziness, or headaches. The patient reports no depression, no sleep disturbance, feeling safe in a relationship and no alcohol abuse. Patient reports on fatigue. Reports no runny nose or sinus pressure. No itching, no hives, and no frequent sneezing. PHYSICAL EXAMINATION: GENERAL: Pleasant female in no acute distress. VITAL SIGNS: Blood pressure 125/67, pulse 60 and regular. HEENT: Normocephalic, atraumatic. NECK: No bruits noted. HEART: Regular, occasional extrasystole. LUNGS: Lung ceja are clear. ABDOMEN: Soft, nontender. CONSULT REPORT [id number] JOYCE BULLARD EXTREMITIES: Pulses 2+ with no edema. IMPRESSION: Suspect pneumonitis with secondary exacerbations of her atrial fibrillation, currently he is remaining in sinus. Obviously, given her history of GI bleeding not a candidate for NOAC. Unless rhythm becomes more symptomatic, would not increase the amiodarone. We will check echocardiographic study. Further recommendations based on the above. TRANSINT:[id number] Voice Confirmation ID: [id number] DOCUMENT ID: [id number] VÍCTOR HODGE MD at 1222 CC: [id number] DICTATION DATE: 05/05/18 1031 PLATING MACHINE OPERATOR: 05/05/18 1104 DIS IN 05/07/18 [facility] [address] [place] [address]
--- NOTE | 2018-05-09 12:22 | EC ---
PATIENT:JOYCE BULLARD DATE OF SERVICE: 05/04/18 SEX: F MEDICAL RECORD: [id number] DATE OF : [birth year] LOCATION:D.M2 D.212 AGE OF PATIENT: 67 ADMISSION DATE: 05/04/18 REFERRING PHYSICIAN: INTERPRETING PHYSICIAN: VÍCTOR HODGE MD ECHOCARDIOGRAM REPORT ECHO CHARGES 5 ECHO LIMITED Date: 05/05/18 1 DOPPLER ECHO COLOR FLOW 2 DOPPLER ECHO PULSE CLINICAL DIAGNOSIS: A-FIB ECHOCARDIOGRAPHIC MEASUREMENTS (adult normal given) AC root (d.<3.7cm) 0 cm LV Septum d (<1.2 cm> 0 cm Valve Excursion 0 cm LV Septum (systole) 0 cm Left Atria (s.<4.0cm> 0 cm LVPW d(<1.2cm) 0 cm RV (d.<2.3cm) 0 cm LVPW (sytole) 0 cm LV diastole(<5.6CM) 0 cm MV E-F(>70mm/sec) 0 cm LV systole 0 cm LVOT Diameter 0 cm MV exc.(>10mm) 0 cm Est.ejection fraction (50-75%) 0 % DOPPLER: LVIT 0 cm/sec A 0 cm/sec E 0 cm/sec LA 0 cm/sec RVSP 55.0 mmHg LVOT 0 cm/sec AOP1/2T 0 m/s Asc. Ao 0 cm/sec RVOT 0 cm/sec RA 0 cm/sec PA 0 cm/sec AV Gradient Peak 0 mmHg AV Mean 0 mmHg AV Area 0 cm MV Gradient Peak 0 mmHg MV Mean 0 mmHg MV Area 0 cm COMMENTS: LIMITED STUDY (2-D,COLOR,DOPPLER) COMPLETE ECHO DONE ON 04/08/18 Senior Writer: 1 YULI ISAACDSOE Car Tracer: 3 Dr. Magallon TAPE# PACS Pericardial Effusion N DATE OF SERVICE: This is a limited study, 2D and color flow only. Grossly LVH appears present. LV internal dimensions normal. Wall motion normal. EF is greater than 55%. Aortic valve sclerosis without stenosis by Doppler interrogation. Mild AR on color flow imaging. Left atrium appears grossly normal. Mitral valve shows no prolapse. Mild MR. Right-sided chambers grossly normal. Moderate TR. ECHOCARDIOGRAM REPORT [id number] JOYCE BULLARD TRANSINT:[id number] Voice Confirmation ID: [id number] DOCUMENT ID: [id number] VÍCTOR HODGE MD at 1222 CC: [id number] DICTATION DATE: 05/06/18836 ORNAMENTAL IRON ERECTOR: 05/06/18 09 DIS IN 05/07/18 [place] [id number] [place] [id number]
== END 2018-05-07 16:03 | disposition home or self-care (01) | DRG 193 ==
LOC: D.ER 14:48 → D.EDHOLD 18:37 → D.M2 18:37
PROVIDERS: Family Medicine; Internal Medicine Gastroenterology; ADMIT Internal Medicine Nephrology; ATTEND Internal Medicine Nephrology
PROC: 0DB68ZX Excision of Stomach, Via Natural or Artificial Opening Endoscopic, Diagnostic (ICD-10-PCS; principal; 2018-05-05 12:12)
DX: J18.9 Pneumonia, unspecified organism (principal); E43 Unspecified severe protein-calorie malnutrition; I48.91 Unspecified atrial fibrillation; E78.5 Hyperlipidemia, unspecified; I10 Essential (primary) hypertension; D64.9 Anemia, unspecified; K21.0 Gastro-esophageal reflux disease with esophagitis; K44.9 Diaphragmatic hernia without obstruction or gangrene; K29.70 Gastritis, unspecified, without bleeding; K31.7 Polyp of stomach and duodenum; Z68.33 Body mass index [BMI] 33.0-33.9, adult

== ENCOUNTER 2018-05-20 15:08 | Emergency (ER) | payer MEDICARE, OTHER ==
[~2018-05-20] VITALS: Ht 170.2 cm; Wt 77.3 kg
[~2018-05-20 15:08] MED LIST changes: +Nystatin Oral Susp [ PO; +PACERONE200 MG PO
[2018-05-20 15:20] VITALS: Ht 170.2 cm; Wt 77.3 kg
[2018-05-20 16:19] LABS: BASOPHILS 0.7 % (0-2); EOSINOPHILS 2.7 % (0-7); HEMATOCRIT 29.7 % (36.0-48.0); HEMOGLOBIN 9.2 g/dL (12-16); LYMPHOCYTES 17.2 % (15-50); MCV 83.9 fL (80.0-100.0); MEAN PLATELET VOLUME 8.9 fL (7.4-10.4); MONOCYTES 17.7 % (2-11); NEUTROPHILS 61.7 % (40-80); RBC 3.54 10x6/uL (4.00-5.40); RDW 20.3 % (11.5-14.5); WBC 4.5 10x3/uL (4.8-10.8)
[2018-05-20 16:25] LABS: PLATELET COUNT 149 10x3/uL (130-400)
[2018-05-20 16:30] LABS: APTT 35.3 SECONDS (22.8-39.4); INR 1.52 (0.85-1.17); PROTIME 17.7 SECONDS (11.6-15.0)
[2018-05-20 16:37] LABS: ALBUMIN 2.6 g/dL (3.4-5.0); ALKALINE PHOSPHATASE 77 U/L (46-116); ALT (SGPT) 29 U/L (10-68); BILIRUBIN - TOTAL 1.74 mg/dL (0.2-1.3); CALC OSMOLALITY 283 mosm/kg (275-300); CALCIUM 8.2 mg/dL (8.5-10.1); CARBON DIOXIDE 27.7 mmol/L (21.0-32.0); CHLORIDE - SERUM 110 mmol/L (98-107); CREATININE - SERUM 0.7 mg/dL (0.6-1.3); GLUCOSE 100 mg/dL (74-106); POTASSIUM - SERUM 3.2 mmol/L (3.5-5.1); PROTEIN - SERUM 6.5 g/dL (6.4-8.2); SODIUM 144 mmol/L (136-145); UREA NITROGEN 4 mg/dL (7-18); eGFR NON AFRICAN AMERICAN 88 mL/min (90-120)
[2018-05-20] MEDS ORDERED: LOMOTIL 2.5-0.1 EAC1 PO (17:27)
[2018-05-20 19:37] VITALS: BP 161/79
== END 2018-05-20 19:37 | disposition home or self-care (01) ==
LOC: D.ER 15:08
PROVIDERS: Emergency Medicine
DX: R19.7 Diarrhea, unspecified (principal); D64.9 Anemia, unspecified; E87.6 Hypokalemia

== ENCOUNTER → 2018-05-29 08:42 | Outpatient (CLI) | payer MEDICARE, OTHER ==
[2018-05-20 15:20] VITALS: BMI 26.7
[~2018-05-29 08:42] MED LIST changes: +LOMOTIL 2.5-0.1 EAC1 PO
[2018-05-30 08:23] LABS: IMMUNOGLOBULIN A 480 mg/dL (87-352); IMMUNOGLOBULIN G 1428 mg/dL (700-1600); IMMUNOGLOBULIN M 533 mg/dL (26-217)
[2018-06-04 04:12] LABS: IMMUNOGLOBULIN E 51 IU/mL (0-100)
== END | disposition home or self-care (01) ==
LOC: D.RT 08:42
PROVIDERS: ATTEND Internal Medicine Pulmonary Disease
DX: J44.9 Chronic obstructive pulmonary disease, unspecified (principal)

== ENCOUNTER 2018-05-30 09:44 | Inpatient (IN) | payer MEDICARE, OTHER ==
[~2018-05-30] VITALS: Ht 170.2 cm; Wt 91.9 kg
[2018-05-30 11:01] LABS: BASOPHILS 0.8 % (0-2); EOSINOPHILS 2.7 % (0-7); HEMATOCRIT 30.9 % (36.0-48.0); HEMOGLOBIN 9.5 g/dL (12-16); LYMPHOCYTES 16.2 % (15-50); MCH 25.4 pg (26.0-34.0); MCHC 30.7 g/dL (31.0-37.0); MCV 82.6 fL (80.0-100.0); MONOCYTES 16.2 % (2-11); NEUTROPHILS 64.1 % (40-80); PLATELET COUNT 153 10x3/uL (130-400); RBC 3.74 10x6/uL (4.00-5.40); RDW 20.1 % (11.5-14.5); WBC 5.2 10x3/uL (4.8-10.8)
[2018-05-30 11:17] LABS: INR 1.44 (0.85-1.17)
[2018-05-30 11:25] LABS: D-DIMER-QUANTITATIVE 5.43 ug/mLFEU (0.20-0.54)
[2018-05-30 11:30] VITALS: BP 122/61
[2018-05-30 11:30] LABS: ALBUMIN 2.8 g/dL (3.4-5.0); ALKALINE PHOSPHATASE 77 U/L (46-116); ALT (SGPT) 22 U/L (10-68); BILIRUBIN - TOTAL 2.58 mg/dL (0.2-1.3); CALC OSMOLALITY 284 mosm/kg (275-300); CALCIUM 8.5 mg/dL (8.5-10.1); CARBON DIOXIDE 29.5 mmol/L (21.0-32.0); CHLORIDE - SERUM 107 mmol/L (98-107); CREATININE - SERUM 0.7 mg/dL (0.6-1.3); GLUCOSE 117 mg/dL (74-106); POTASSIUM - SERUM 3.2 mmol/L (3.5-5.1); PROTEIN - SERUM 6.9 g/dL (6.4-8.2); SODIUM 143 mmol/L (136-145); UREA NITROGEN 9 mg/dL (7-18); eGFR NON AFRICAN AMERICAN 88 mL/min (90-120)
[2018-05-30 11:47] LABS: CKMB 1.2 U/L (0.0-3.6); CREATINE KINASE 40 UL (21-215); LIPASE 152 U/L (73-393); PRO BNP 692 pg/mL (0-125)
[2018-05-30 11:52] LABS: TROPONIN-I 0.206 ng/mL (0.000-0.060)
--- NOTE | 2018-05-30 11:52 | NUR ---
ELEVATED TROPONIN OF 0.20 CALLED FROM LAB, ER PROVIDER NOTIFIED.
--- NOTE | 2018-05-30 11:52 | NUR ---
ELEVATED LACTIC ACID CALLED FROM LAB OF 2.1, ER PROVIDER NOTIFIED.
[2018-05-30 12:26] LABS: APPEARANCE HAZY (CLEAR); BACTERIA MODERATE /hpf (NONE SEEN); BILIRUBIN NEGATIVE (NEGATIVE); COLOR DK YELLOW (YELLOW); EPITHELIAL CELLS 0-5 /hpf (0-5); GLUCOSE NEGATIVE (NEGATIVE); KETONE NEGATIVE (NEGATIVE); MUCUS >1+ /lpf (NONE SEEN); NITRITE NEGATIVE (NEGATIVE); PROTEIN NEGATIVE (NEGATIVE); RED CELLS - URINE 0-5 /hpf (0-5); WHITE CELLS - URINE 0-5 /hpf (0-5)
[2018-05-30 13:30] VITALS: BP 139/71
--- NOTE | 2018-05-30 14:51 | NUR ---
LUNCH TRAY GIVEN AT THIS TIME PER PT REQUEST. PT AWARE SHE IS BEING ADMITTED TO [facility], AWAITING BED ASSIGNMENT. WILL ADMINISTER ORDERED ZITHROMAX ONCE ORDERED ROCEPHIN IS COMPLETED.
--- NOTE | 2018-05-30 15:22 | NUR ---
ORDERED ROCEPHIN COMPLETE AT THIS TIME.
--- NOTE | 2018-05-30 15:23 | NUR ---
CALLED REPORT TO LAWRENCE MERA AT THIS TIME. ROOM 2138 ASSIGNED AT 1438 AND MARKED DIRTY. ED TO BE NOTIFIED WHEN ASSIGNED ROOM IS CLEAN AND READY FOR PT.
--- NOTE | 2018-05-30 15:27 | NUR ---
NOTIFIED BY ANEESH, TO DECREASE FLUID RATE TO 125ML/HOUR.
--- NOTE | 2018-05-30 15:58 | MORECARE ---
CASE MANAGEMENT DISCHARGE SUMMARY PATIENT: JOYCE BULLARD UNIT: [id number] ADM DATE: 05/30/18 AGE: 68 : 48 SEX: F ROOM/BED: D.[facility] AUTHOR: CHARLY HAYNES PHYSICIAN: REFERRING PHYSICIAN: STANTON VERONICA MD DATE OF SERVICE: 05/30/18 Discharge Plan Patient Name: JOYCE BULLARD [facility] [facility] 1950 Planned Disposition: Anticipated Discharge Date: 06/02/18 Discharge Date: Expected LOS: 3 Initial Reviewer: [email or web address] Initial Review Date: 05/30/2018 Generated: 05/30/18 4:58 pm DCPIA - Discharge Planning Initial Assessment Updated by [email or web address]: Rosana Brennan on 05/30/18 3:58 pm * Is the patient Alert and Oriented? Yes * How many steps to enter\exit or inside your home? * PCP Dr. Cornejo - [facility] * Pharmacy [facility] * Preadmission Environment Home Alone * ADLs Independent * Equipment Cane Nebulizer Rolling Walker Wheelchair * List name and contact numbers for known caregivers / representatives who currently or will assist patient after discharge: Monica Osuna - friend - [phone] Juan C & Yani Dwyer - dtr/son in law - [phone] * Verbal permission to speak to the caregivers and representatives has been obtained from the patient. Yes * Community resources currently utilized None * Has this patient been hospitalized within the prior 30 days at any hospital? Yes Patient Name: JOYCE BULLARD Page 70132 at 1558 All edits/amendments must be made on the electronic document DICTATION DATE: 05/30/18 1558 DOWELING MACHINE OPERATOR: JIMMY 05/30/18 1558 RPT#: [id number] [place] DATE: STATUS: ADM IN [facility] [address] [place] [address] END OF REPORT
--- NOTE | 2018-05-30 16:10 | MORECARE ---
CASE MANAGEMENT DISCHARGE SUMMARY PATIENT: JOYCE BULLARD UNIT: [id number] ADM DATE: 05/30/18 AGE: 68 : 48 SEX: F ROOM/BED: D.5428 AUTHOR: DALLAS,DOC PHYSICIAN: REFERRING PHYSICIAN: STANTON VERONICA MD DATE OF SERVICE: 05/30/18 Discharge Plan Patient Name: JOYCE BULLARD Facility: [facility]:[place] : 1950 Planned Disposition: Anticipated Discharge Date: 06/02/18 Discharge Date: Expected LOS: 3 Initial Reviewer: [email or web address] Initial Review Date: 05/30/2018 Generated: 05/30/18 5:09 pm DCP- Discharge Planning Updated by [email or web address]: Rosana Brennan on 05/30/18 2:[address] Patient Name: JOYCE BULLARD Admission Status: ER Accout number: [id number] Admission Date: 05-30-2018 : 1950 Admission Diagnosis: Attending: STANTON VERONICA Current LOS: 1 Anticipated DC Date: 06-02-2018 Planned Disposition: Primary Insurance: MEDICARE A & B Discharge Planning Comments: CM met with patient to complete initial dc planning assessment. CM educated patient on the CM role and verbal consent given by patient to complete assessment. Patient lives at home alone. At discharge patient plans to return home or to her friends house and feels this is a safe discharge. CM discussed availability of home health, rehab services, and medical equipment. Patient denied known discharge needs at this time. CM will continue to follow and will assist as needed with dc plans/needs. Route Relief Driver: Rosana Brennan RN, [facility] DCPIA - Discharge Planning Initial Assessment Updated by [email or web address]: Rosana Brennan on 05/30/18 3:58 pm * Is the patient Alert and Oriented? Yes * How many steps to enter\exit or inside your home? * PCP Dr. Cornejo - [facility] * Pharmacy [facility] * Preadmission Environment Home Alone * ADLs Independent * Equipment Cane Nebulizer Rolling Walker Wheelchair * List name and contact numbers for known caregivers / representatives who currently or will assist patient after discharge: Monica Osuna - [facility] - [phone] Natalya Dwyer - dtr/son in law - [phone] * Verbal permission to speak to the caregivers and representatives has been obtained from the patient. Yes * Community resources currently utilized None * Has this patient been hospitalized within the prior 30 days at any hospital? Yes Last DP export: 05/30/18 2:58 pm Patient Name: JOYCE BULLARD Page 41921 at 1610 All edits/amendments must be made on the electronic document DICTATION DATE: 05/30/181608 VOICE PATHOLOGIST: JIMMY 05/30/181608 RPT#: [id number] DC DATE: STATUS: ADM IN [facility] [address] [place] [address] END OF REPORT
--- NOTE | 2018-05-30 16:26 | NUR ---
ARRIVED FROM ER VIA . DR. MELGOZA HERE. LAB AND RESP HERE. SEE ASSESSMENT FOR FURTHER EVAL.
[2018-05-30 16:35] VITALS: BP 134/53; BMI 33.6
[2018-05-30 17:11] LABS: % SATURATION 15 % (15-55); IRON 50 ug/dl (35-150); TOTAL IRON BIND CAPACITY 332 ug/dl (260-445); UNSAT IRON BIND CAPACITY 282 ug/dl (150-375)
--- NOTE | 2018-05-30 17:16 | MORECARE ---
CASE MANAGEMENT DISCHARGE SUMMARY PATIENT: JOYCE BULLARD UNIT: [id number] ADM DATE: 05/30/18 AGE: 68 : 48 SEX: F ROOM/BED: D.8631 AUTHOR: DALLAS,DOC PHYSICIAN: REFERRING PHYSICIAN: STANTON VERONICA MD DATE OF SERVICE: 05/30/18 Discharge Plan Patient Name: JOYCE BULLARD Facility: [facility]:[place] : 1950 Planned Disposition: Anticipated Discharge Date: 06/02/18 Discharge Date: Expected LOS: 3 Initial Reviewer: [email or web address] Initial Review Date: 05/30/2018 Generated: 05/30/18 6:16 pm DCP- Discharge Planning Updated by [email or web address]: Rosana Brennan on 05/30/18 2:[address] Patient Name: JOYCE BULLARD Admission Status: ER Accout number: [id number] Admission Date: 05-30-2018 : 1950 Admission Diagnosis: Attending: STANTON VERONICA Current LOS: 1 Anticipated DC Date: 06-02-2018 Planned Disposition: Primary Insurance: MEDICARE A & B Discharge Planning Comments: CM met with patient to complete initial dc planning assessment. CM educated patient on the CM role and verbal consent given by patient to complete assessment. Patient lives at home alone. At discharge patient plans to return home or to her friends house and feels this is a safe discharge. CM discussed availability of home health, rehab services, and medical equipment. Patient denied known discharge needs at this time. CM will continue to follow and will assist as needed with dc plans/needs. National Van Truck Driver: Rosana Brennan RN, [facility] DCPIA - Discharge Planning Initial Assessment Updated by [email or web address]: Rosana Brennan on 05/30/18 3:58 pm * Is the patient Alert and Oriented? Yes * How many steps to enter\exit or inside your home? * PCP Dr. oCrnejo - [facility] * Pharmacy [facility] * Preadmission Environment Home Alone * ADLs Independent * Equipment Cane Nebulizer Rolling Walker Wheelchair * List name and contact numbers for known caregivers / representatives who currently or will assist patient after discharge: Monica Osuna - [employer] - [phone] Natalya Dwyer - dtr/son in law - [phone] * Verbal permission to speak to the caregivers and representatives has been obtained from the patient. Yes * Community resources currently utilized None * Has this patient been hospitalized within the prior 30 days at any hospital? Yes Last DP export: 05/30/18 3:09 pm Patient Name: JOYCE BULLARD Page [phone] at 1716 All edits/amendments must be made on the electronic document DICTATION DATE: 05/30/181714 EXTENSION EDGER: JIMMY 05/30/181714 RPT#: [id number] DC DATE: STATUS: ADM IN [facility] [address] [place] [address] END OF REPORT
--- NOTE | 2018-05-30 17:24 | NUR ---
REVIEWED AND AGREED WITH ASSESEMENT. CL IN REACH, BED IN LOW, SR UP X2.
--- NOTE | 2018-05-30 18:13 | NUR ---
PT CURRENTLY LYING SEMI FOWLERS. CALL LIGHT W/I REACH. SIDE RAIL UP X2. TELEMETRY APPLIED. PT RUNNING 69 NS. RR EVEN AND UNLABORED ON RA. PT HAS PRODUCTIVE FREQUENT COUGH. NS INFUSING @125ML/HR VIA R.FOR PIV. PT DENIES ANY NEEDS AT THIS TIME. NO S/S OF DISTRESS NOTED. WILL PASS REPORT AND CONTINUE WITH POC.
--- NOTE | 2018-05-30 19:10 | NUR ---
Received patient in bed resting talking on the telephone. In good spirits, denies any pain or discomfort at this time. PIV in right forearm in situ, no signs of infection or infiltration, NS infusing TKVO @5ml/hr. Telemetry on, rhythm SR with HR in the 90s/min. Alert and oriented x 4. Respirations easy and regular.
[2018-05-30 20:00] VITALS: BP 139/61
--- NOTE | 2018-05-30 22:26 | NUR ---
Resting quietly in bed, respirations easy and regular, eyes closed, deemed to be sleeping.
[2018-05-31] VITALS (7 sets, daily range): BP systolic 105–167; BP diastolic 57–81; Ht 170.2 cm; Wt 91.9 kg
--- NOTE | 2018-05-31 05:30 | NUR ---
Had episode of SOB, felt like she couldn't get her breath, Respiratory called and performed breathing treatment with good effects. Patient more relaxed, resting quietly and reports breathing much improved.
[2018-05-31 07:00] LABS: BASOPHILS 0.6 % (0-2); HEMATOCRIT 27.8 % (36.0-48.0); HEMOGLOBIN 8.4 g/dL (12-16); IMMATURE GRANULOCYTES 0.3 % (0-5); LYMPHOCYTES 20.3 % (15-50); MCH 24.9 pg (26.0-34.0); MCHC 30.2 g/dL (31.0-37.0); MCV 82.2 fL (80.0-100.0); MEAN PLATELET VOLUME 9.3 fL (7.4-10.4); MONOCYTES 16.6 % (2-11); NEUTROPHILS 60.2 % (40-80); PLATELET COUNT 123 10x3/uL (130-400); RBC 3.38 10x6/uL (4.00-5.40); RDW 20.1 % (11.5-14.5)
[2018-05-31 07:05] LABS: WBC 3.5 10x3/uL (4.8-10.8)
--- NOTE | 2018-05-31 07:25 | NUR ---
PT AWKAE/ALERT/ORIENTED. FAMILY AT BEDSIDE. ANSWERED ALL QUESTIONS TO THE BEST OF MY ABILITY. CL IN REACH. SRX 2. NO OTHER CONCNERNS/COMMENTS VOICED A TTHIS TIME.
[2018-05-31 07:32] LABS: ALBUMIN 2.5 g/dL (3.4-5.0); ALKALINE PHOSPHATASE 64 U/L (46-116); ALT (SGPT) 21 U/L (10-68); BILIRUBIN - TOTAL 1.94 mg/dL (0.2-1.3); CALC OSMOLALITY 280 mosm/kg (275-300); CALCIUM 7.7 mg/dL (8.5-10.1); CARBON DIOXIDE 26.3 mmol/L (21.0-32.0); CHLORIDE - SERUM 106 mmol/L (98-107); CKMB 0.8 U/L (0.0-3.6); CREATINE KINASE 27 UL (21-215); CREATININE - SERUM 0.6 mg/dL (0.6-1.3); GLUCOSE 114 mg/dL (74-106); POTASSIUM - SERUM 3.2 mmol/L (3.5-5.1); PROTEIN - SERUM 6.1 g/dL (6.4-8.2); SODIUM 141 mmol/L (136-145); UREA NITROGEN 10 mg/dL (7-18); eGFR NON AFRICAN AMERICAN > 90 mL/min (90-120)
[2018-05-31 07:33] LABS: TROPONIN-I 0.201 ng/mL (0.000-0.060)
[2018-05-31 12:37] LABS: CKMB 0.9 U/L (0.0-3.6); CREATINE KINASE 211 UL (21-215)
[2018-05-31 12:39] LABS: TROPONIN-I 0.174 ng/mL (0.000-0.060)
[2018-05-31 14:49] LABS: CKMB 1.2 U/L (0.0-3.6); CREATINE KINASE 38 UL (21-215)
[2018-05-31 14:51] LABS: TROPONIN-I 0.206 ng/mL (0.000-0.060)
--- NOTE | 2018-05-31 14:56 | NUR ---
LAB CALLED .206 TROP LEVEL, CALLED DR. BONILLA, INFORMED HIM PTS TROPONION HAD BEEN TRENDING DOWN, BUT WAS NOW GOING BACK UP. TOLD ME TO CANCEL THE REST OF THE TROPONIONS.
--- NOTE | 2018-05-31 15:02 | NUR ---
I have reviewed this patient and I concur with the Shift Assessment completed by the Licensed Practical Nurse today this shift.
--- NOTE | 2018-05-31 18:36 | NUR ---
PT HAD 2 U OF BLOOD. HEART RATE JUMPED UP TO 150S. CALLED DR. BONILLA. HE INFORMED ME TO GIVE 400 CORDERONE, WATCH HEART RATE AND IN 2 HOURS IF ITS NOT DOWN GIVE 200 MORE. GIVEN. CURRENTLY 142, GIVEN AT 1838
--- NOTE | 2018-05-31 18:41 | NUR ---
PT IV IS BAD, STOPPED ZITHROMYACIN. WILL INFORM FUSE CUTTER.
--- NOTE | 2018-05-31 19:25 | NUR ---
RECEIVED REPORT, ASSUMED CARE OF PATIENT. ALERT/AWAKE DENIES PAIN OR ANY NEEDS. RR 20 EVEN U/L ON RA. IV IN R FA SL. FLUSHED THE IV. NO S/S OF INFILTRATION, SWELLING OR REDNESS. PATIENT DENIES FEELING ANY PAIN OR DISCOMFORT. RESTARTED AZITHROMYCIN. TELEMETRY SHOWS 142 [facility] NURSE "TRESA" STATED DR HODGE ORDERED ANOTHER DOSE OF AMIODARONE 200 MG PO IF HER HR DOES NOT GO DOWN AT 2040 TWO HOURS AFTER LAST DOSE OF 400MG.
--- NOTE | 2018-05-31 21:10 | NUR ---
HR AT 139 PER LOCAL SALES MANAGER. ADMIN AMIODARONE 200MG PO PER ORDER. WILL CONT TO MONITOR.
--- NOTE | 2018-06-01 01:00 | NUR ---
AMBULATED TO WITH STEADY GAIT AND BACK TO BED. NO OTHER NEEDS VOICED.
[2018-06-01 03:53] VITALS: BP 153/61
--- NOTE | 2018-06-01 06:10 | NUR ---
REMOVED RT FA IV AND RESITED NEW IV IN LT HAND 22G.
[2018-06-01 06:45] LABS: BASOPHILS 0.5 % (0-2); EOSINOPHILS 1.4 % (0-7); HEMATOCRIT 30.6 % (36.0-48.0); HEMOGLOBIN 9.5 g/dL (12-16); LYMPHOCYTES 17.4 % (15-50); MCH 25.8 pg (26.0-34.0); MCV 83.2 fL (80.0-100.0); MEAN PLATELET VOLUME 9.5 fL (7.4-10.4); MONOCYTES 15.3 % (2-11); NEUTROPHILS 65.4 % (40-80); RBC 3.68 10x6/uL (4.00-5.40)
[2018-06-01 07:15] LABS: CALC OSMOLALITY 275 mosm/kg (275-300); CALCIUM 8.2 mg/dL (8.5-10.1); CARBON DIOXIDE 25.7 mmol/L (21.0-32.0); CHLORIDE - SERUM 105 mmol/L (98-107); CREATININE - SERUM 0.6 mg/dL (0.6-1.3); GLUCOSE 99 mg/dL (74-106); POTASSIUM - SERUM 3.5 mmol/L (3.5-5.1); SODIUM 139 mmol/L (136-145); UREA NITROGEN 8 mg/dL (7-18); eGFR NON AFRICAN AMERICAN > 90 mL/min (90-120)
[2018-06-01 07:20] LABS: PLATELET COUNT 87 10x3/uL (130-400); WBC 4.4 10x3/uL (4.8-10.8)
[2018-06-01 07:38] LABS: PLATELET ESTIMATE DECREASED
--- NOTE | 2018-06-01 08:15 | NUR ---
PT RESTING QUIETLY IN BED. NO ACUTE DISTRESS NOTED. RESP EVEN AND UNLABORED. SALINE LOC TO LEFT HAND, SITE WITHOUT REDNESS OR EDEMA, FLUSHES EASILY, GOOD BLOOD RETURN. DENIES PAIN AT PRESENT. DENIES FURTHER NEEDS AT THIS TIME. CL WITHIN REACH. ENCOURAGED TO CALL WITH NEEDS. CONTINUE POC
[2018-06-01 09:41] VITALS: BP 155/58
--- NOTE | 2018-06-01 10:10 | NUR ---
PT SITTING UP IN BED. NO ACUTE DISTRESS NOTED. AM MEDS ADMINISTERED PER MD ORDERS. DENIES FURTHER NEEDS AT THIS TIME. CL WITHIN REACH. WILL CONTINUE TO MONITOR.
[2018-06-01 11:45] VITALS: BP 153/76
--- NOTE | 2018-06-01 15:30 | NUR ---
PT AMBULATING TO BR AND BACK TO BED. GAIT STEADY, DENIES DIZZINESS AT THIS TIME. DENIES FURTHER NEEDS AT THIS TIME. CL WITHIN REACH.
[2018-06-01 15:58] VITALS: BP 114/77
--- NOTE | 2018-06-01 19:33 | NUR ---
ALERT/AWAKE ORIENTED X4. DENIES PAIN OR ANY NEEDS. IV IN L HAND INTACT WITH AZITHROMYCIN INFUSING. BED IS LOW, CL IN REACH.
[2018-06-01 19:55] VITALS: BP 154/76
--- NOTE | 2018-06-01 20:30 | NUR ---
ADMIN SCHED MEDS. NO OTHER NEEDS VOICED.
--- NOTE | 2018-06-01 21:45 | NUR ---
TOOK STOOL SAMPLE AND RESP SPUTUM SAMPLE TO LAB PER ORDER.
[2018-06-01 23:50] VITALS: BP 148/71
--- NOTE | 2018-06-02 02:00 | NUR ---
C/O DRY THROAT. REQUESTED MORE ICE WATER.
[2018-06-02 03:45] VITALS: BP 126/81
[2018-06-02 05:58] LABS: BASOPHILS 0.7 % (0-2); EOSINOPHILS 2.6 % (0-7); HEMATOCRIT 32.5 % (36.0-48.0); HEMOGLOBIN 10.1 g/dL (12-16); LYMPHOCYTES 21.1 % (15-50); MCH 25.6 pg (26.0-34.0); MCHC 31.1 g/dL (31.0-37.0); MCV 82.3 fL (80.0-100.0); MEAN PLATELET VOLUME 9.4 fL (7.4-10.4); NEUTROPHILS 55.6 % (40-80); PLATELET COUNT 130 10x3/uL (130-400); RBC 3.95 10x6/uL (4.00-5.40); WBC 4.3 10x3/uL (4.8-10.8)
--- NOTE | 2018-06-02 06:00 | NUR ---
BRASS MOLDER HELPER'S PRESENT IN ROOM TAKING CXR.
[2018-06-02 06:16] LABS: APTT 41.5 SECONDS (22.8-39.4); INR 1.48 (0.85-1.17); PROTIME 17.3 SECONDS (11.6-15.0)
[2018-06-02 06:17] LABS: D-DIMER-QUANTITATIVE 2.91 ug/mLFEU (0.20-0.54)
[2018-06-02 06:45] LABS: CALC OSMOLALITY 284 mosm/kg (275-300); CALCIUM 8.5 mg/dL (8.5-10.1); CARBON DIOXIDE 26.4 mmol/L (21.0-32.0); CHLORIDE - SERUM 106 mmol/L (98-107); CREATININE - SERUM 0.6 mg/dL (0.6-1.3); GLUCOSE 99 mg/dL (74-106); LDH 178 U/L (81-234); POTASSIUM - SERUM 3.5 mmol/L (3.5-5.1); SODIUM 144 mmol/L (136-145); UREA NITROGEN 8 mg/dL (7-18); eGFR NON AFRICAN AMERICAN > 90 mL/min (90-120)
--- NOTE | 2018-06-02 07:58 | NUR ---
REPORT RECEIVED. WILL CONTINUE WITH POC. PT CURRENTLY LYING SEMI FOWLERS. CALL LIGHT W/I REACH. NO S/S OF DISTRESS NOTED. PT IS RESTING AT THIS TIME. RR EVEN AND UNLABORED ON RA. L.HAND PIV IS SALINE LOCKED. PT DENIES ANY NEEDS AT THIS TIME. WILL CTM.
[2018-06-02 08:51] VITALS: BP 129/70
[2018-06-02 12:39] VITALS: BP 128/71
--- NOTE | 2018-06-02 14:14 | NUR ---
AGREE WITH PIE CUTTER ASSESSMENT
[2018-06-02 17:33] VITALS: BP 143/69
--- NOTE | 2018-06-02 19:35 | NUR ---
AMBULATING BACK TO BED FROM BATHROOM. REQUESTED MORE TOILET PAPER. SOME PRODUCTIVE COUGHING OF WHITE SPUTUM NOTED. NO OTHER NEEDS VOICED.
[2018-06-02 20:00] VITALS: BP 170/81
--- NOTE | 2018-06-02 20:35 | NUR ---
RECEIVING RESP UPDRAFT TX.
--- NOTE | 2018-06-02 22:05 | NUR ---
ADMIN SCHED MEDS. C/O IV STILL HURTING. REMOVED AND RESITED NEW IV IN LEFT HAND WITH 22G. RESTARTED IVF.
[2018-06-03] VITALS: BP 158/65; BP 158/69
[2018-06-03 03:09] LABS: FOLATE (FOLIC ACID) - SERUM 3.8 ng/mL (>3.0)
--- NOTE | 2018-06-03 03:15 | NUR ---
RESTING WITH EYES CLOSED. RR 18 EVEN U/L. NO S/S OF DISCOMFORT. BED IS LOW WITH CL IN REACH.
[2018-06-03 04:00] VITALS: BP 169/82
[2018-06-03 04:33] LABS: BASOPHILS 0.5 % (0-2); EOSINOPHILS 2.4 % (0-7); HEMATOCRIT 30.2 % (36.0-48.0); HEMOGLOBIN 9.8 g/dL (12-16); IMMATURE GRANULOCYTES 0.2 % (0-5); LYMPHOCYTES 19.6 % (15-50); MCH 26.8 pg (26.0-34.0); MCHC 32.5 g/dL (31.0-37.0); MCV 82.7 fL (80.0-100.0); MEAN PLATELET VOLUME 8.9 fL (7.4-10.4); MONOCYTES 18.3 % (2-11); PLATELET COUNT 113 10x3/uL (130-400); RBC 3.65 10x6/uL (4.00-5.40); RDW 20.2 % (11.5-14.5); WBC 4.1 10x3/uL (4.8-10.8)
[2018-06-03 05:14] LABS: CALC OSMOLALITY 281 mosm/kg (275-300); CALCIUM 8.4 mg/dL (8.5-10.1); CARBON DIOXIDE 27.5 mmol/L (21.0-32.0); CHLORIDE - SERUM 106 mmol/L (98-107); CREATININE - SERUM 0.7 mg/dL (0.6-1.3); GLUCOSE 102 mg/dL (74-106); POTASSIUM - SERUM 3.5 mmol/L (3.5-5.1); SODIUM 142 mmol/L (136-145); UREA NITROGEN 9 mg/dL (7-18); eGFR NON AFRICAN AMERICAN 88 mL/min (90-120)
--- NOTE | 2018-06-03 05:30 | NUR ---
NO CHANGES NOTED. RESTING WITH EYES CLOSED. RR 18 EVEN U/L.
[2018-06-03 09:17] LABS: IMMUNOGLOBULIN A 428 mg/dL (87-352); IMMUNOGLOBULIN G 1269 mg/dL (700-1600)
[2018-06-03 09:57] VITALS: BP 154/50
[2018-06-03 18:08] LABS: HEPATITIS C ANTIBODY <0.1 S/CO RAT (0.0-0.9)
[2018-06-03 18:48] VITALS: BP 140/92
[2018-06-03 20:00] VITALS: BP 152/65
--- NOTE | 2018-06-04 03:53 | NUR ---
RN NOTE. PATIENT IS RESTING COMFORTABLY. RESPIRATIONS ARE EVEN AND UNLABORED. NO S/S OF DISTRESS. NO C/O PAIN. CALL LIGHT WITHIN REACH. WILL CPOC.
[2018-06-04 04:00] VITALS: BP 152/75
--- NOTE | 2018-06-04 07:37 | NUR ---
ROUNDING DONE WITH PATIENT SITTING UP IN THE BED WORKING ON HER FLUTTER VALVE. COUGHING PAST USE. ON ROOM AIR. ON HEART MONITOR SHOWING SR, HR 98. LEFT HAND PIV SEEN WITH SALINE LOCK, ORANGE SWAB CAP PLACED. ON EP, NO LAB VALUSE BACK YET. WILL WATCH FOR THEM AND COVER WITH SUPPLEMENTS IF NEEDED. WILL MONITOR.
[2018-06-04 08:30] LABS: BASOPHILS 0.2 % (0-2); EOSINOPHILS 0.2 % (0-7); HEMATOCRIT 31.5 % (36.0-48.0); HEMOGLOBIN 9.8 g/dL (12-16); IMMATURE GRANULOCYTES 0.2 % (0-5); LYMPHOCYTES 12.9 % (15-50); MCH 25.7 pg (26.0-34.0); MCHC 31.1 g/dL (31.0-37.0); MCV 82.5 fL (80.0-100.0); MEAN PLATELET VOLUME 9.3 fL (7.4-10.4); MONOCYTES 13.3 % (2-11); NEUTROPHILS 73.2 % (40-80); RBC 3.82 10x6/uL (4.00-5.40); RDW 20.4 % (11.5-14.5)
[2018-06-04 08:32] LABS: PLATELET COUNT 143 10x3/uL (130-400)
[2018-06-04 08:33] LABS: CALC OSMOLALITY 280 mosm/kg (275-300); CALCIUM 8.6 mg/dL (8.5-10.1); CHLORIDE - SERUM 105 mmol/L (98-107); CREATININE - SERUM 0.7 mg/dL (0.6-1.3); GLUCOSE 117 mg/dL (74-106); SODIUM 141 mmol/L (136-145); UREA NITROGEN 10 mg/dL (7-18); eGFR NON AFRICAN AMERICAN 88 mL/min (90-120)
--- NOTE | 2018-06-04 08:37 | NUR ---
POTASSIUM IS 4.0
[2018-06-04 09:34] VITALS: BP 146/64
[2018-06-04 12:13] VITALS: BP 161/74
--- NOTE | 2018-06-04 12:27 | NUR ---
SITTING UP IN THE BED EATING LUNCH. DENIES NEEDS AT THIS TIME.
--- NOTE | 2018-06-04 12:55 | NUR ---
NYSTATIN SWISH AND SWALLOW GIVEN. DENIES ANY NEEDS AT THIS TIME.
--- NOTE | 2018-06-04 14:33 | NUR ---
DENIES NEEDS AT THIS TIME, REQUESTED SOME FRESH ICE WATER. GIVEN.
--- NOTE | 2018-06-04 16:32 | MORECARE ---
CASE MANAGEMENT DISCHARGE SUMMARY PATIENT: JOYCE BULLARD UNIT: [id number] ADM DATE: 05/30/18 AGE: 68 : 48 SEX: F ROOM/BED: D.9993 AUTHOR: CHARLY HAYNES PHYSICIAN: REFERRING PHYSICIAN: STANTON VERONICA MD DATE OF SERVICE: 06/04/18 Discharge Plan Patient Name: JOYCE BULLARD Facility: [facility]:[place] : 1950 Planned Disposition: Home Anticipated Discharge Date: 06/04/18 Discharge Date: Expected LOS: 5 Initial Reviewer: [email or web address] Initial Review Date: 05/30/2018 Generated: 06/04/18 5:31 pm Comments DCP- Discharge Planning Updated by [email or web address]: Asif Baez on 06/04/18 3:[address] Patient Name: JOYCE BULLARD Encounter No: [id number] : 1950 Primary Insurance: MEDICARE A & B Anticipated DC Date: 06-04-2018 Planned Disposition: Home DCP follow-up note: CM RECEIVED DISCHARGE ORDER, SPOKE TO PT IN ROOM REGARDING DISCARGE NEEDS. PT DENIES NEEDS AT THIS TIME, WILL CALL A FRIEND FOR TRANSPORTATION HOME THIS EVENING PRIOR TO DARK HER RIDE DOES NOT DRIVE AFTER DARK. IMPORTANT MESSAGE FROM MEDICARE PROVIDED AND DISCUSSED. JIMI Sosa DCP- Discharge Planning Updated by [email or web address]: Rosana Brennan on 05/30/18 2:[address] Patient Name: JOYCE BULLARD Admission Status: ER Accout number: [id number] Admission Date: 05-30-2018 : 1950 Admission Diagnosis: Attending: STANTON VERONICA Current LOS: 1 Anticipated DC Date: 06-02-2018 Planned Disposition: Primary Insurance: MEDICARE A & B Discharge Planning Comments: CM met with patient to complete initial dc planning assessment. CM educated patient on the CM role and verbal consent given by patient to complete assessment. Patient lives at home alone. At discharge patient plans to return home or to her friends house and feels this is a safe discharge. CM discussed availability of home health, rehab services, and medical equipment. Patient denied known discharge needs at this time. CM will continue to follow and will assist as needed with dc plans/needs. Container Finishing Inspector: Rosana Brennan RN, [facility] DCPIA - Discharge Planning Initial Assessment Updated by [email or web address]: Rosana Brennan on 05/30/18 3:58 pm * Is the patient Alert and Oriented? Yes * How many steps to enter\exit or inside your home? * PCP Dr. Cornejo - HSV * Pharmacy [facility] * Preadmission Environment Home Alone * ADLs Independent * Equipment Cane Nebulizer Rolling Walker Wheelchair * List name and contact numbers for known caregivers / representatives who currently or will assist patient after discharge: Monica Enrrique - friend - [phone] Natalya Dwyer - dtr/son in law - [phone] * Verbal permission to speak to the caregivers and representatives has been obtained from the patient. Yes * Community resources currently utilized None * Has this patient been hospitalized within the prior 30 days at any hospital? Yes Coverage Notice Reviewer: [email or web address] Makenzie Baez Notice Issued Date-Time: 06/04/2018 16:15 Notice Type: IM Discharge Notice Notice Delivered To: Patient Relationship to Patient: Hand Ornament Maker Name: Delivery Method: HAND - Hand Delivered Inna Days: Prior Verbal Notification: Recipient Understood Notice: Yes Recipient Signature: Yes Med Rec Note Co-signed by Attending: Coverage Notice Comment: Last DP export: 05/30/18 4:16 pm Patient Name: JOYCE BULALRD Page [id number] at 1632 All edits/amendments must be made on the electronic document DICTATION DATE: 06/04/18 1631 BUSINESS OFFICE DIRECTOR: JIMMY 06/04/18 1631 RPT#: [id number] DC DATE: STATUS: ADM IN [facility] [address] [place] [address] END OF REPORT
--- NOTE | 2018-06-04 16:59 | NUR ---
SALINE LOCK REMOVED WITH CATH TIP INTACT. VERBAL AND WRITTEN DISCHARGE INSTRUCTIONS GIVEN TO PATIENT. AWAITING RIDE FOR DISCHARGE.
--- NOTE | 2018-06-04 17:30 | NUR ---
RIDE IS HERE. DISCHARGED HOME VIA WHEELCHAIR.
--- NOTE | 2018-06-05 13:10 | EC ---
PATIENT:JOYCE BULLARD DATE OF SERVICE: 05/30/18 SEX: F MEDICAL RECORD: [id number] DATE OF : [birth year] LOCATION:D.M2 D.213 AGE OF PATIENT: 68 ADMISSION DATE: 05/30/18 REFERRING PHYSICIAN: INTERPRETING PHYSICIAN: VÍCTOR HODGE MD ECHOCARDIOGRAM REPORT ECHO CHARGES 5 ECHO LIMITED Date: 05/31/18 1 DOPPLER ECHO COLOR FLOW CLINICAL DIAGNOSIS: SOB ECHOCARDIOGRAPHIC MEASUREMENTS (adult normal given) AC root (d.<3.7cm) 0 cm LV Septum d (<1.2 cm> 0 cm Valve Excursion 0 cm LV Septum (systole) 0 cm Left Atria (s.<4.0cm> 0 cm LVPW d(<1.2cm) 0 cm RV (d.<2.3cm) 0 cm LVPW (sytole) 0 cm LV diastole(<5.6CM) 0 cm MV E-F(>70mm/sec) 0 cm LV systole 0 cm LVOT Diameter 0 cm MV exc.(>10mm) 0 cm Est.ejection fraction (50-75%) 0 % DOPPLER: LVIT cm/sec A 0 cm/sec E 0 cm/sec LA 0 cm/sec RVSP 47.1 mmHg LVOT 0 cm/sec AOP1/2T m/s Asc. Ao 0 cm/sec RVOT 0 cm/sec RA 0 cm/sec PA 0 cm/sec AV Gradient Peak 0 mmHg AV Mean 0 mmHg AV Area 0 cm MV Gradient Peak 0 mmHg MV Mean 0 mmHg MV Area 0 cm COMMENTS: Standards Engineer: Razia ANTOINEMARLON JAVIER Mechanical Design Engineer Products: 3 Dr. Magallon TAPE# PACS Pericardial Effusion Y DATE OF SERVICE: This is technically limited, includes 2-D and color flow. Grossly, no LVH. LV internal dimensions are normal. Wall motion is normal. EF equal or greater than 55%. Aortic valve is tricuspid on 2-D with good valve excursion. Left atrium appears normal with no more than mild MR. Right-sided pressure is normal. Mild TR. TRANSINT:[id number] Voice Confirmation ID: [id number] DOCUMENT ID: [id number] ECHOCARDIOGRAM REPORT [id number] JOYCE BULLARD VÍCTOR HODGE MD at 9310 CC: [id number] DICTATION DATE: 05/31/18 1220 ESCORT VEHICLE DRIVER: 05/31/18 2342 DIS IN 06/04/18 [facility] [address] [facility]
--- NOTE | 2018-06-05 13:10 | CN ---
PATIENT NAME:JOYCE BULLARD MEDICAL RECORD: [id number] : [birth year] LOCATION:D. D.2138 ADMIT DATE: 05/30/18 ACCOUNT: [id number] CONSULTING PHYSICIAN: VÍCTOR HODGE MD REFERRING PHYSICIAN: STANTON VERONICA MD DATE OF CONSULTATION: 05/30/2018 HISTORY OF PRESENT ILLNESS: A 68-year-old female with a history of paroxysmal atrial fibrillation. She has a history of cirrhosis, diastolic dysfunction and LV systolic function had been normal recently. History of hypothyroidism, admitted with volume overload, and anemia, noted to have elevated cardiac enzymes, currently in sinus. We are asked to see her concerning her cardiovascular status. PAST MEDICAL HISTORY: Includes: 1. History of atrial fibrillation. 2. History of gastrointestinal bleeding. 3. Hypertension. 4. Hyperlipidemia. 5. Hypothyroidism, on replacement. ALLERGIES: INCLUDE NEOSPORIN. MEDICATIONS: Typically include albuterol 2 puffs q.6 hours as needed, amiodarone 200 every day, atorvastatin 40 every day, metoprolol 50 every day, Singulair 10 at bedtime, Protonix 40 every day, and Synthroid 50 mcg every day. SOCIAL HISTORY: Retired home health nurse. Nonsmoker, nondrinker. Was exercising prior to current illness. REVIEW OF SYSTEMS: The patient reports easy bruising but reports no swollen glands. The patient reports no fever, no night sweats, no significant weight gain, no significant weight loss. No significant exercise tolerance. The patient reports no dry eyes, no irritation, no vision change. Patient reports no difficulty hearing and no ear pain. Patient reports no frequent nose bleeds or nose and sinus problems. Patient reports on arm pain on exertion. No shortness of breath while lying down. No history of heart murmur. Patient reports no cough, no wheezing or coughing up blood. Patient reports no abdominal pain, no vomiting. Normal appetite. No diarrhea and not vomiting blood. No nausea and no constipation. Patient reports no incontinence. No difficulty urinating. No hematuria. No increased frequency. Patient reports no muscle aches. No weakness, no arthralgias, no back pain. No swelling of the extremities. Patient reports no abnormal mole, no jaundice, no rashes. Reports no loss of consciousness. No weakness and no numbness. No seizures, dizziness, or headaches. The patient reports no depression, no sleep disturbance, feeling safe in a relationship and no alcohol abuse. Patient reports on fatigue. Reports no runny nose or sinus pressure. No itching, no hives, and no frequent sneezing. PHYSICAL EXAMINATION: GENERAL: Pleasant female appears stated age, in no acute distress, does appear somewhat pale. VITAL SIGNS: Blood pressure 105/81, pulse 91 and regular. HEENT: Normocephalic, atraumatic. NECK: No bruits noted. CONSULT REPORT [id number] BULLARDJOYCE LO HEART: Regular, II/ systolic ejection murmur. LUNGS: Good air excursion. ABDOMEN: Soft, nontender. EXTREMITIES: Pulses 2+, 1+ edema. IMPRESSION: SPECT cardiac enzymes elevated, is more of a demand ischemia, no anginal type symptomatology, volume overload may be related to high output, CHF symptomatology would transfuse 1 unit to recheck 2D echo to make sure LV systolic function remains normal. His enzymes remain flat, would not think this is a true acute ischemic syndrome. Further recommendations based on above. TRANSINT:[id number] Voice Confirmation ID: [id number] DOCUMENT ID: [id number] VÍCTOR HODGE MD at 1310 CC: [id number] DICTATION DATE: 05/31/18 1046 MAINFRAME SYSTEMS ENGINEER: 05/31/18 2319 DIS IN 06/04/18 [place] [id number] [place] [address]
[2018-06-05 18:09] LABS: IMMUNOGLOBULIN E 56 IU/mL (6-495)
== END 2018-06-04 17:31 | disposition home or self-care (01) | DRG 291 ==
LOC: D.ER 09:44 → D.EDHOLD 14:15 → D.M2 14:15
PROVIDERS: Family Medicine; Internal Medicine Pulmonary Disease; ADMIT Internal Medicine Nephrology; ATTEND Internal Medicine Nephrology
DX: I11.0 Hypertensive heart disease with heart failure (principal); J18.1 Lobar pneumonia, unspecified organism; J98.11 Atelectasis; D68.59 Other primary thrombophilia; N39.0 Urinary tract infection, site not specified; J45.991 Cough variant asthma; I50.30 Unspecified diastolic (congestive) heart failure; I48.91 Unspecified atrial fibrillation; M19.90 Unspecified osteoarthritis, unspecified site; E03.9 Hypothyroidism, unspecified; E78.5 Hyperlipidemia, unspecified; E87.6 Hypokalemia; K74.60 Unspecified cirrhosis of liver; D50.9 Iron deficiency anemia, unspecified; I25.10 Atherosclerotic heart disease of native coronary artery without angina pectoris; K21.9 Gastro-esophageal reflux disease without esophagitis; Z86.73 Personal history of transient ischemic attack (TIA), and cerebral infarction without residual deficits

== ENCOUNTER 2018-06-21 21:17 | Emergency (ER) | payer MEDICARE, OTHER ==
[~2018-06-21] VITALS: Ht 170.2 cm; Wt 97.7 kg
[2018-06-21 21:20] VITALS: Ht 170.2 cm; Wt 97.7 kg
[2018-06-21] MEDS ORDERED: FUROSEMIDE20 MG PO (21:30)
[2018-06-22 01:16] LABS: BASOPHILS 0.6 % (0-2); EOSINOPHILS 2.4 % (0-7); HEMATOCRIT 30.5 % (36.0-48.0); HEMOGLOBIN 9.5 g/dL (12-16); IMMATURE GRANULOCYTES 0.2 % (0-5); LYMPHOCYTES 19.4 % (15-50); MCH 25.2 pg (26.0-34.0); MCHC 31.1 g/dL (31.0-37.0); MCV 80.9 fL (80.0-100.0); MEAN PLATELET VOLUME 8.7 fL (7.4-10.4); MONOCYTES 13.5 % (2-11); NEUTROPHILS 63.9 % (40-80); PLATELET COUNT 130 10x3/uL (130-400); RBC 3.77 10x6/uL (4.00-5.40); RDW 20.2 % (11.5-14.5); WBC 4.9 10x3/uL (4.8-10.8)
[2018-06-22 01:30] LABS: ALBUMIN 2.7 g/dL (3.4-5.0); ALKALINE PHOSPHATASE 74 U/L (46-116); ALT (SGPT) 21 U/L (10-68); BILIRUBIN - TOTAL 2.22 mg/dL (0.2-1.3); CALC OSMOLALITY 276 mosm/kg (275-300); CALCIUM 8.3 mg/dL (8.5-10.1); CARBON DIOXIDE 31.5 mmol/L (21.0-32.0); CHLORIDE - SERUM 102 mmol/L (98-107); CREATININE - SERUM 0.6 mg/dL (0.6-1.3); GLUCOSE 103 mg/dL (74-106); PROTEIN - SERUM 6.7 g/dL (6.4-8.2); SODIUM 139 mmol/L (136-145); UREA NITROGEN 9 mg/dL (7-18); eGFR NON AFRICAN AMERICAN > 90 mL/min (90-120)
[2018-06-22 01:31] LABS: POTASSIUM - SERUM 2.8 mmol/L (3.5-5.1)
[2018-06-22 03:27] VITALS: BP 153/64
== END 2018-06-22 03:27 | disposition home or self-care (01) ==
LOC: D.ER 21:17
PROVIDERS: Emergency Medicine
DX: R42 Dizziness and giddiness (principal); D64.9 Anemia, unspecified; E87.6 Hypokalemia; Z86.79 Personal history of other diseases of the circulatory system; Z87.19 Personal history of other diseases of the digestive system

== ENCOUNTER 2018-08-29 14:46 | Emergency (ER) | payer MEDICARE, OTHER ==
[~2018-08-29] VITALS: Ht 170.2 cm; Wt 90.0 kg
[~2018-08-29 14:46] MED LIST changes: +FUROSEMIDE20 MG PO
[2018-08-29 14:52] VITALS: Ht 170.2 cm; Wt 90.0 kg
[2018-08-29 15:41] LABS: BASOPHILS 0.4 % (0-2); EOSINOPHILS 1.3 % (0-7); HEMATOCRIT 33.9 % (36.0-48.0); HEMOGLOBIN 10.4 g/dL (12-16); IMMATURE GRANULOCYTES 0.2 % (0-5); LYMPHOCYTES 12.6 % (15-50); MCH 24.2 pg (26.0-34.0); MCHC 30.7 g/dL (31.0-37.0); MEAN PLATELET VOLUME 9.2 fL (7.4-10.4); MONOCYTES 14.4 % (2-11); NEUTROPHILS 71.1 % (40-80); PLATELET COUNT 134 10x3/uL (130-400); RBC 4.29 10x6/uL (4.00-5.40); RDW 20.2 % (11.5-14.5); WBC 5.6 10x3/uL (4.8-10.8)
[2018-08-29 15:49] LABS: APPEARANCE CLEAR (CLEAR); BILIRUBIN NEGATIVE (NEGATIVE); COLOR YELLOW (YELLOW); GLUCOSE NEGATIVE (NEGATIVE); KETONE NEGATIVE (NEGATIVE); NITRITE NEGATIVE (NEGATIVE); PROTEIN TRACE mg/dL (NEGATIVE); SPECIFIC GRAVITY 1.015 (1.005-1.020); UROBILINOGEN NORMAL (NORMAL)
[2018-08-29 15:51] LABS: RED CELLS - URINE 0-5 /hpf (0-5)
[2018-08-29 15:52] LABS: BACTERIA MODERATE /hpf (NONE SEEN); MUCUS <1+ /lpf (NONE SEEN)
[2018-08-29 15:58] LABS: ALKALINE PHOSPHATASE 84 U/L (46-116); ALT (SGPT) 42 U/L (10-68); BILIRUBIN - TOTAL 3.36 mg/dL (0.2-1.3); CALC OSMOLALITY 277 mosm/kg (275-300); CALCIUM 8.7 mg/dL (8.5-10.1); CARBON DIOXIDE 29.2 mmol/L (21.0-32.0); CHLORIDE - SERUM 103 mmol/L (98-107); CREATININE - SERUM 0.7 mg/dL (0.6-1.3); GLUCOSE 105 mg/dL (74-106); POTASSIUM - SERUM 3.3 mmol/L (3.5-5.1); PROTEIN - SERUM 7.2 g/dL (6.4-8.2); SODIUM 140 mmol/L (136-145); UREA NITROGEN 10 mg/dL (7-18); eGFR NON AFRICAN AMERICAN 88 mL/min (90-120)
[2018-08-29] MEDS ORDERED: FLAGYL500 MG PO (17:36)
[2018-08-29 17:46] VITALS: BP 138/72
== END 2018-08-29 17:49 | disposition home or self-care (01) ==
LOC: D.ER 14:46
PROVIDERS: Family Medicine
DX: R19.7 Diarrhea, unspecified (principal)

== ENCOUNTER → 2018-09-15 08:46 | Outpatient (CLI) | payer MEDICARE, OTHER ==
[2018-08-29 14:52] VITALS: BMI 31.1
[~2018-09-15 08:46] MED LIST changes: +FLAGYL500 MG PO
--- NOTE | 2018-09-17 11:19 | EC ---
PATIENT:JOYCE BULLARD DATE OF SERVICE: 09/15/18 SEX: F MEDICAL RECORD: [id number] DATE OF : [birth year] LOCATION:D.RT AGE OF PATIENT: 68 ADMISSION DATE: 09/15/18 REFERRING PHYSICIAN: INTERPRETING PHYSICIAN: ROBERT CARDENAS MD ECHOCARDIOGRAM REPORT ECHO CHARGES 4 ECHO COMPLETE Date: 09/15/18 CLINICAL DIAGNOSIS: PULMONARY HTN ECHOCARDIOGRAPHIC MEASUREMENTS (adult normal given) AC root (d.<3.7cm) 2.6 cm LV Septum d (<1.2 cm> 1.0 cm Valve Excursion 1.5 cm LV Septum (systole) 1.3 cm Left Atria (s.<4.0cm> 3.9 cm LVPW d(<1.2cm) 1.4 cm RV (d.<2.3cm) 3.5 cm LVPW (sytole) 1.7 cm LV diastole(<5.6CM) 3.9 cm MV E-F(>70mm/sec) cm LV systole 2.2 cm LVOT Diameter 1.8 cm MV exc.(>10mm) cm Est.ejection fraction (50-75%) % DOPPLER: LVIT cm/sec A 44 cm/sec E 102 cm/sec LA cm/sec RVSP 44.6 mmHg LVOT 85 cm/sec AOP1/2T m/s Asc. Ao 140 cm/sec RVOT 65 cm/sec RA cm/sec PA 93 cm/sec AV Gradient Peak 7.8 mmHg AV Mean 5.1 mmHg AV Area 1.5 cm MV Gradient Peak 8.36 mmHg MV Mean 3.4 mmHg MV Area cm COMMENTS: Loss Prevention Supervisor: Razia HERRERA Vision Care Associate: Parvin Anderson TAPE# PACS Pericardial Effusion N DATE OF SERVICE: 09/15/2018 FINDINGS: 1. Left ventricular chamber size is within normal limits. Left ventricular systolic function is normal. Overall ejection fraction is estimated at 60%. 2. Left atrium is within normal limits. Right atrium and right ventricular chamber sizes are mildly dilated. 3. Valvular structures have normal structure and motion. 4. Doppler interrogation reveals moderate tricuspid regurgitation. No other valvular insufficiency or stenosis. Pulmonary systolic pressure is estimated at ECHOCARDIOGRAM REPORT [id number] JOYCE BULLARD 34 mmHg. 5. No evidence of pericardial effusion or left ventricular thrombus. TRANSINT:[id number] Voice Confirmation ID: [id number] DOCUMENT ID: [id number] ROBERT CARDENAS MD at 1119 CC: [id number] DICTATION DATE: 09/15/18 1158 FIELD CANE SCALE CLERK: 09/15/18 1219 DEP CLI 09/15/18 [place] [id number] [place] [id number]
== END | disposition home or self-care (01) ==
LOC: D.RT 08:46
PROVIDERS: ATTEND Internal Medicine Pulmonary Disease
DX: I50.32 Chronic diastolic (congestive) heart failure (principal); J90 Pleural effusion, not elsewhere classified; I27.20 Pulmonary hypertension, unspecified

== ENCOUNTER 2018-11-15 13:35 | Inpatient (IN) | payer MEDICARE, OTHER ==
[~2018-11-15] VITALS: Ht 170.2 cm; Wt 93.0 kg
--- NOTE | 2018-11-15 14:08 | NUR ---
PT IN WITH C/O SOB AND COUGH, HAS BEEN WORKING WITH HER DOCTOR ON PULMONARY ISSUES X 6 MONTHS. HE INSTRUCTED PATIENT TO COME TO THE ER. PATIENT HAS A PRODUCTIVE BARKY COUGH, WITHOUT DISTRESS AT THIS TIME.
--- NOTE | 2018-11-15 14:29 | NUR ---
AIMEEXIS IS OUT OF THE ORDERED MEDICATIONS, PHARMACY WILL SEND.
[2018-11-15 14:42] LABS: BASOPHILS 0.4 % (0-2); EOSINOPHILS 1.6 % (0-7); HEMATOCRIT 33.7 % (36.0-48.0); HEMOGLOBIN 10.8 g/dL (12-16); IMMATURE GRANULOCYTES 0.2 % (0-5); LYMPHOCYTES 12.3 % (15-50); MCH 26.9 pg (26.0-34.0); MEAN PLATELET VOLUME 9.4 fL (7.4-10.4); MONOCYTES 14.1 % (2-11); NEUTROPHILS 71.4 % (40-80); PLATELET COUNT 115 10x3/uL (130-400); RBC 4.01 10x6/uL (4.00-5.40); RDW 26.3 % (11.5-14.5)
[2018-11-15 15:01] LABS: ALBUMIN 2.4 g/dL (3.4-5.0); ALKALINE PHOSPHATASE 99 U/L (46-116); ALT (SGPT) 45 U/L (10-68); CALC OSMOLALITY 277 mosm/kg (275-300); CALCIUM 7.8 mg/dL (8.5-10.1); CARBON DIOXIDE 27.6 mmol/L (21.0-32.0); CHLORIDE - SERUM 102 mmol/L (98-107); CREATININE - SERUM 0.7 mg/dL (0.6-1.3); GLUCOSE 112 mg/dL (74-106); MAGNESIUM - SERUM 1.5 mg/dL (1.8-2.4); POTASSIUM - SERUM 3.1 mmol/L (3.5-5.1); PROTEIN - SERUM 6.5 g/dL (6.4-8.2); SODIUM 140 mmol/L (136-145); UREA NITROGEN 7 mg/dL (7-18); eGFR NON AFRICAN AMERICAN 88 mL/min (90-120)
--- NOTE | 2018-11-15 15:05 | NUR ---
CRITICAL LAB LACTIC ACID OF 3.2. NOTIFIED EDP AT THIS TIME.
[2018-11-15 15:59] VITALS: BP 181/78
[2018-11-15 16:10] LABS: APPEARANCE CLEAR (CLEAR); BILIRUBIN NEGATIVE (NEGATIVE); COLOR YELLOW (YELLOW); GLUCOSE NEGATIVE (NEGATIVE); KETONE NEGATIVE (NEGATIVE); NITRITE NEGATIVE (NEGATIVE); PROTEIN NEGATIVE (NEGATIVE); UROBILINOGEN NORMAL (NORMAL)
[2018-11-15 16:18] LABS: % SATURATION 75 % (15-55); IRON 211 ug/dl (35-150); TOTAL IRON BIND CAPACITY 280 ug/dl (260-445); UNSAT IRON BIND CAPACITY 69 ug/dl (150-375)
--- NOTE | 2018-11-15 16:30 | NUR ---
RCV`D PT TO FLOOR FROM ER VIA HOSPITAL STAFF. PT DENIES PAIN AT THIS TIME. COUGHING UP A LARGE AMOUNT OF WHITE SPUTUM AND REPORTS THIS HAS BEEN GOING ON FOR DAYS. IV LOCATED TO LEFT HAND. DENIES ANY NEEDS AT THIS TIME WILL CONTINUE TO MONITOR. BED LOW, CALL LIGHT IN REACH, RAILS UP X 2.
[2018-11-15 16:53] LABS: THYROID STIMULATING HORMONE 2.25 uIU/mL (0.36-3.74)
[2018-11-15 17:07] VITALS: BP 113/71; BMI 32.2
--- NOTE | 2018-11-15 19:15 | NUR ---
PATIENT ALERT AND ORIENTED WHEN ENTERING THE ROOM. HOB ELEVATED. PATIENT WITH LEFT HAND IV AT KVO RATE. PT ON ROOM AIR. LUNGS CLEAR TO AUSCULTATION BILTAERALLY. DENIES PAIN OR DISCOMFORT AT THIS TIME. ASSESSED TEMPERATURE CURRENTLY 98.8. STATES AND RECEIVED IN REPORT THAT PATIENT HAD A FEVER. APPEARS TO HAVE BROKEN. APPLIED YELLOW GOWN. PATIENT VERBALIZES NOT TO GET UP WITH OUT ASSISTANCE. TELEMTRY APPLIED WELL. DENIES FURTHER NEEDS. CALL LIGHT IN REACH OF PATIENT. USES APPROPRIATELY. INFORMED PATIENT THAT ANOTHER URINE SAMPLE IS NEEDED. HAT PLACED IN BATHROOM. CPOC.
[2018-11-15 20:00] VITALS: BP 140/69
[2018-11-15 22:52] LABS: UDS - AMPHET NEGATIVE QUAL (NEGATIVE); UDS - BARB NEGATIVE QUAL (NEGATIVE); UDS - BENZO NEGATIVE QUAL (NEGATIVE); UDS - COCAINE NEGATIVE QUAL (NEGATIVE); UDS - OPIATE POSITIVE QUAL (NEGATIVE); UDS - PCP NEGATIVE QUAL (NEGATIVE); UDS - THC NEGATIVE QUAL (NEGATIVE)
[2018-11-16] VITALS: BP 150/70
[2018-11-16 04:00] VITALS: BP 151/67
--- NOTE | 2018-11-16 04:00 | NUR ---
CHICO REFUSAL FORM ON CHART
[2018-11-16 06:09] LABS: BASOPHILS 0 % (0-2); EOSINOPHILS 0 % (0-7); HEMATOCRIT 33.1 % (36.0-48.0); HEMOGLOBIN 10.6 g/dL (12-16); LYMPHOCYTES 14.4 % (15-50); MCH 26.7 pg (26.0-34.0); MCV 83.4 fL (80.0-100.0); MEAN PLATELET VOLUME 9.3 fL (7.4-10.4); NEUTROPHILS 81.6 % (40-80); PLATELET COUNT 112 10x3/uL (130-400); RBC 3.97 10x6/uL (4.00-5.40); RDW 26.2 % (11.5-14.5)
[2018-11-16 06:34] LABS: ALBUMIN 2.1 g/dL (3.4-5.0); ALKALINE PHOSPHATASE 92 U/L (46-116); ALT (SGPT) 38 U/L (10-68); BILIRUBIN - TOTAL 3.04 mg/dL (0.2-1.3); CALC OSMOLALITY 278 mosm/kg (275-300); CALCIUM 7.9 mg/dL (8.5-10.1); CARBON DIOXIDE 27.2 mmol/L (21.0-32.0); CHLORIDE - SERUM 105 mmol/L (98-107); CREATININE - SERUM 0.6 mg/dL (0.6-1.3); GLUCOSE 144 mg/dL (74-106); POTASSIUM - SERUM 3.5 mmol/L (3.5-5.1); PRO BNP 709 pg/mL (0-125); SODIUM 139 mmol/L (136-145); UREA NITROGEN 7 mg/dL (7-18); eGFR NON AFRICAN AMERICAN > 90 mL/min (90-120)
--- NOTE | 2018-11-16 06:52 | NUR ---
I have reviewed this patient and I concur with the Shift Assessment completed by the Licensed Practical Nurse today this shift.
--- NOTE | 2018-11-16 07:48 | NUR ---
PT SITTING UP IN BED WITH EYES OPEN. BREATHING CURRENTLY EVEN AND NONLABORED, PRODUCTIVE COUGH IS STILL PRESENT PRODUCING WHITE SPUTUM. IV LOCATED TO LEFT HAND RUNNING ABX. DENIES PAIN OR NEEDS AT THIS TIME. WILL CONTINUE TO MONITOR. BED LOW, CALL LIGHT IN REACH, RAILS UP X2.
[2018-11-16 08:07] VITALS: BP 156/75
--- NOTE | 2018-11-16 11:50 | NUR ---
PT SITTING UP IN BED REPORTS HER IV HAS STARTED LEAKING, DC`D WITH CATHETER TIP INTACT. RESITED 22G TO RIGHT FOREARM, CURRENTLY SALINE LOCKED.
[2018-11-16 14:01] VITALS: BP 132/63
[2018-11-16 18:38] LABS: INR 1.38 (0.85-1.17); PROTIME 16.4 SECONDS (11.6-15.0)
--- NOTE | 2018-11-16 19:15 | NUR ---
PT RESTING WHEN ENTERING ROOM. EYES CLOSED AND RESPIRATIONS EVEN AND UNLABORED. NO DISTRESS NOTED AT THIS TIME. CPOC.
[2018-11-16 20:00] VITALS: BP 169/66
--- NOTE | 2018-11-16 20:10 | NUR ---
ANSWERED PATIENT CALL LIGHT. PATIENT NOW AWAKE AND ALERT. ASSISTED TO BATHROOM. PATIENT IS A MINIMAL STANDBY ASSIST. PATIENT USES WALKER WHEN AMBULATING TO THE BATHROOM. PATIENT HAS BEGUN TO PRODUCTIVLY COUGH AND HAVE "FITS". REQUESTS COUGH MEDICINE WITH NIGHT TIME MEDICATIONS. DENIES PAIN. ROOM AIR AND SATURATION IS 97% AT THIS TIME. HAS RIGHT FOREARM IV THAT IS PATENT AND INFUSING AT A KVO RATE. NO REDNESS, TENDERNESS, OR REPORTED BURNING AT THE INSERTION SITE. EDUCATED PATIENT ABOUT UPCOMING MEDICATIONS. CALL LIGHT IS IN REACH OF PATIENT. DENIES FURTHER NEEDS. CPOC.
[2018-11-17] VITALS: BP 158/74
--- NOTE | 2018-11-17 02:47 | NUR ---
I have reviewed this patient and I concur with the Shift Assessment completed by the Licensed Practical Nurse today this shift.
[2018-11-17 04:00] VITALS: BP 160/75
--- NOTE | 2018-11-17 07:13 | NUR ---
ALERT AND ORIENTED. LUNGS DIMINISHED BILATERALLY. HEART SOUNDS S1 AND S2 HEARD IN ALL MAURICE. BOWEL SOUNDS ACTIVE X 4. COUGH NOTED. REQUESTED AND GIVEN BIOTENE SPRAY FOR DRY MOUTH. IV TO RFA PATENT WITHOUT REDNESS. BED LOW. CALL CRUM AND PERSONAL ITEMS IN REACH. DENIES PAIN. DENIES NEEDS. WILL CONTINUE TO MONITOR.
[2018-11-17 08:34] VITALS: BP 152/80
--- NOTE | 2018-11-17 09:56 | NUR ---
PATIENT WITH COUGHING SPELLS. PRN PHENERGAN NOT AVAILABLE YET. PATIENT RECEIVING SCHEDULED BREATHING TX. WILL CONTINUE TO MONITOR.
--- NOTE | 2018-11-17 11:46 | NUR ---
SPOKE WITH JOHN GIBSON ABOUT PATIENT REQUEST FOR MEDICATION FOR PAIN. STATES WILL ADD MEDICATION FOR PAIN TO MAR.
--- NOTE | 2018-11-17 13:35 | NUR ---
ASSISTED TO BATHROOM. DENIES FURTHER NEEDS. DENIES PAIN. WILL CONTINUE TO MONITOR.
[2018-11-17 13:48] VITALS: BP 125/53
[2018-11-17 14:33] VITALS: Ht 170.2 cm; Wt 93.0 kg
[2018-11-17 14:40] LABS: BASOPHILS 0.1 % (0-2); EOSINOPHILS 1.6 % (0-7); HEMATOCRIT 33.6 % (36.0-48.0); HEMOGLOBIN 10.5 g/dL (12-16); IMMATURE GRANULOCYTES 0.1 % (0-5); LYMPHOCYTES 9.9 % (15-50); MCHC 31.3 g/dL (31.0-37.0); MEAN PLATELET VOLUME 9.4 fL (7.4-10.4); MONOCYTES 10.3 % (2-11); PLATELET COUNT 129 10x3/uL (130-400); RBC 3.89 10x6/uL (4.00-5.40); RDW 27.5 % (11.5-14.5)
[2018-11-17 14:44] LABS: MCV 86.4 fL (80.0-100.0); WBC 6.8 10x3/uL (4.8-10.8)
[2018-11-17 16:27] LABS: ALBUMIN 2.2 g/dL (3.4-5.0); ANION GAP 12.7 mmol/L (8-16); BILIRUBIN - TOTAL 2.39 mg/dL (0.2-1.3); CALCIUM 7.6 mg/dL (8.5-10.1); CARBON DIOXIDE 25.7 mmol/L (21.0-32.0); POTASSIUM - SERUM 3.4 mmol/L (3.5-5.1); PROTEIN - SERUM 5.7 g/dL (6.4-8.2)
[2018-11-17 16:28] LABS: CREATININE - SERUM 0.9 mg/dL (0.6-1.3)
--- NOTE | 2018-11-17 16:54 | NUR ---
RESTING IN BED. DENIES PAIN. DENIES NEEDS. WILL CONTINUE TO MONITOR.
[2018-11-17 17:18] VITALS: BP 152/74
--- NOTE | 2018-11-17 18:08 | NUR ---
RESTING IN BED. DENIES PAIN. DENIES NEEDS. BED LOW. CALL CRUM AND PERSONAL ITEMS IN REACH. WILL CONTINUE TO MONITOR.
--- NOTE | 2018-11-17 20:32 | NUR ---
1915) REC'D IN BED WATCHING TV.DURING SHIFT CHGE WALKING ROUNDS WITH DYLON JUSTICE. NO RESPIRATORY DISTRESS OBSERVED.WILL CONTINUE TO MONITOR FOR ANY CHGES AND FOLLOW CURRENT PLAN OF CARE.
[2018-11-17 21:15] VITALS: BP 141/63
[2018-11-18 01:53] VITALS: BP 134/60
[2018-11-18 05:36] VITALS: BP 149/67
--- NOTE | 2018-11-18 05:54 | NUR ---
I have reviewed this patient and I concur with the Shift Assessment completed by the Licensed Practical Nurse today this shift.
[2018-11-18 06:53] LABS: BASOPHILS 0.2 % (0-2); EOSINOPHILS 3.8 % (0-7); HEMATOCRIT 33.7 % (36.0-48.0); HEMOGLOBIN 10.7 g/dL (12-16); IMMATURE GRANULOCYTES 0.2 % (0-5); MCHC 31.8 g/dL (31.0-37.0); MCV 84.9 fL (80.0-100.0); MEAN PLATELET VOLUME 9.3 fL (7.4-10.4); MONOCYTES 12.9 % (2-11); NEUTROPHILS 67.9 % (40-80); PLATELET COUNT 118 10x3/uL (130-400); RBC 3.97 10x6/uL (4.00-5.40); RDW 27.1 % (11.5-14.5)
[2018-11-18 07:19] LABS: WBC 4.2 10x3/uL (4.8-10.8)
[2018-11-18 07:35] LABS: ALBUMIN 2.1 g/dL (3.4-5.0); ALKALINE PHOSPHATASE 90 U/L (46-116); ALT (SGPT) 41 U/L (10-68); BILIRUBIN - TOTAL 2.53 mg/dL (0.2-1.3); CALC OSMOLALITY 280 mosm/kg (275-300); CALCIUM 7.9 mg/dL (8.5-10.1); CARBON DIOXIDE 26.7 mmol/L (21.0-32.0); CHLORIDE - SERUM 109 mmol/L (98-107); CREATININE - SERUM 0.7 mg/dL (0.6-1.3); GLUCOSE 88 mg/dL (74-106); MAGNESIUM - SERUM 1.8 mg/dL (1.8-2.4); POTASSIUM - SERUM 3.3 mmol/L (3.5-5.1); PROTEIN - SERUM 5.9 g/dL (6.4-8.2); SODIUM 142 mmol/L (136-145); UREA NITROGEN 10 mg/dL (7-18); eGFR NON AFRICAN AMERICAN 88 mL/min (90-120)
--- NOTE | 2018-11-18 07:42 | NUR ---
ALERT AND ORIENTED. LUNGS DIMINISHED IN BILATERAL LOWER LOBES. HEART SOUNDS S1 AND S2 HEARD IN ALL MAURICE. BOWEL SOUNDS ACTIVE X 4. SKIN INTACT WITHOUT REDNESS. IV TO RFA PATENT WITHOUT REDNESS. DENIES PAIN. DENIES NEEDS. BED LOW. CALL CRUM AND PERSONAL ITEMS IN REACH. WILL CONTINUE TO MONITOR.
[2018-11-18 08:59] VITALS: BP 157/78
--- NOTE | 2018-11-18 09:20 | NUR ---
IV INFILTRATED TO RFA. REMOVED WITH TIP INTACT. RESTITED TO RIGHT INNER FOREARM WITH ONE ATTEMPT BY RN.
--- NOTE | 2018-11-18 10:41 | NUR ---
RESTING IN BED. DENIES PAIN. DENIES NEEDS. WILL CONTINUE TO MONITOR.
--- NOTE | 2018-11-18 12:32 | NUR ---
PATIENT SLEEPING. WILL CONTINUE TO MONITOR.
[2018-11-18 14:23] VITALS: BP 144/64
--- NOTE | 2018-11-18 15:35 | NUR ---
RESTING IN BED. REQUESTED AND GIVEN CUP OF ICED TEA. DENIES FURTHER NEEDS. DENIES PAIN. WILL CONTINUE TO MONITOR.
[2018-11-18 17:51] VITALS: BP 158/79
--- NOTE | 2018-11-18 18:18 | NUR ---
RESTING IN BED. DENIES PAIN. DENIES NEEDS. WILL CONTINUE TO MONITOR.
--- NOTE | 2018-11-18 20:24 | NUR ---
rec'd. in bed at chge of shift walking rounds talking on phone.no respiratory difficulty observed at present time.will continue to monitor for any chges and follow current plan of care
[2018-11-18 21:16] VITALS: BP 138/63
[2018-11-19] VITALS (7 sets, daily range): BP systolic 136–156; BP diastolic 63–74
--- NOTE | 2018-11-19 06:07 | NUR ---
I have reviewed this patient and I concur with the Shift Assessment completed by the Licensed Practical Nurse today this shift.
--- NOTE | 2018-11-19 07:15 | NUR ---
REPORT RECEIVED. PT ALERT AND ORIENTED SITTING UP IN BED. HEAD TO TOE ASSESSMENT COMPLETED. ON TELEMETRY. IN SINUS RHYTHM WITH HR OF 69. PT COMPLAINTS OF PAIN IN RIGHT FOREARM WHERE IV IS. WILL RESITE.
[2018-11-19 07:43] LABS: BASOPHILS 0.4 % (0-2); EOSINOPHILS 4.2 % (0-7); HEMATOCRIT 33.3 % (36.0-48.0); HEMOGLOBIN 10.6 g/dL (12-16); IMMATURE GRANULOCYTES 0.2 % (0-5); LYMPHOCYTES 13.6 % (15-50); MCH 26.9 pg (26.0-34.0); MCHC 31.8 g/dL (31.0-37.0); MCV 84.5 fL (80.0-100.0); MEAN PLATELET VOLUME 9.3 fL (7.4-10.4); MONOCYTES 14.6 % (2-11); PLATELET COUNT 111 10x3/uL (130-400); RBC 3.94 10x6/uL (4.00-5.40); RDW 27.3 % (11.5-14.5); WBC 4.7 10x3/uL (4.8-10.8)
[2018-11-19 07:55] LABS: ALKALINE PHOSPHATASE 85 U/L (46-116); ALT (SGPT) 37 U/L (10-68); BILIRUBIN - TOTAL 2.72 mg/dL (0.2-1.3); CALC OSMOLALITY 269 mosm/kg (275-300); CALCIUM 7.9 mg/dL (8.5-10.1); CARBON DIOXIDE 23.2 mmol/L (21.0-32.0); CHLORIDE - SERUM 106 mmol/L (98-107); CREATININE - SERUM 0.7 mg/dL (0.6-1.3); GLUCOSE 92 mg/dL (74-106); MAGNESIUM - SERUM 1.7 mg/dL (1.8-2.4); POTASSIUM - SERUM 3.6 mmol/L (3.5-5.1); PROTEIN - SERUM 5.7 g/dL (6.4-8.2); SODIUM 136 mmol/L (136-145); UREA NITROGEN 8 mg/dL (7-18); eGFR NON AFRICAN AMERICAN 88 mL/min (90-120)
--- NOTE | 2018-11-19 08:34 | NUR ---
IV RESITED TO OTHER VEIN IN RIGHT ARM. PREVIOUS IV INFILTRATED. REMOVED THAT IV WITH CATHETER TIP INTACT. PT TOLERATED WELL.
--- NOTE | 2018-11-19 10:03 | MORECARE ---
CASE MANAGEMENT DISCHARGE SUMMARY PATIENT: JOYCE BULLARD UNIT: [id number] ADM DATE: 11/15/18 AGE: 68 : 48 SEX: F ROOM/BED: D.2237 AUTHOR: CHARLY HAYNES PHYSICIAN: REFERRING PHYSICIAN: STANTON VERONICA MD DATE OF SERVICE: 11/19/18 Discharge Plan Patient Name: [facility]YCE BULLARD [facility] [facility] 1950 Planned Disposition: Home Anticipated Discharge Date: Discharge Date: Expected LOS: Initial Reviewer: [email or web address] Initial Review Date: 11/15/2018 Generated: 11/19/18 11:02 am DCPIA - Discharge Planning Initial Assessment Updated by [email or web address]: Chloe Hoskins on 11/19/18 10:01 am * Is the patient Alert and Oriented? Yes * PCP YUE * Pharmacy [facility] * Preadmission Environment Home Alone * ADLs Independent * Equipment Nebulizer * List name and contact numbers for known caregivers / representatives who currently or will assist patient after discharge: YOUSIF ANDREEA, FRIEND, * Additional services required to return to the preadmission environment? No * Can the patient safely return to the preadmission environment? Yes * Has this patient been hospitalized within the prior 30 days at any hospital? No Patient Name: JOYCE BULLARD Page 07802 at 1003 All edits/amendments must be made on the electronic document DICTATION DATE: 11/19/18 1002 HAND COOPER HELPER: DM 11/19/18 1002 RPT#: [id number] DC DATE: STATUS: ADM IN [facility] [address] [place] [address] END OF REPORT
--- NOTE | 2018-11-19 10:11 | MORECARE ---
CASE MANAGEMENT DISCHARGE SUMMARY PATIENT: JOYCE BULLARD UNIT: [id number] ADM DATE: 11/15/18 AGE: 68 : 48 SEX: F ROOM/BED: D.2237 AUTHOR: CHARLY HAYNES PHYSICIAN: REFERRING PHYSICIAN: STANTON VERONICA MD DATE OF SERVICE: 11/19/18 Discharge Plan Patient Name: JOYCE BULLARD Facility: [facility]:[place] : 1950 Planned Disposition: Home Anticipated Discharge Date: Discharge Date: Expected LOS: Initial Reviewer: [email or web address] Initial Review Date: 11/15/2018 Generated: 11/19/18 11:11 am Comments DCP- Discharge Planning Updated by [email or web address]: Chloe Hoskins on 11/19/18 9:[address] Patient Name: JOYCE BULLARD Admission Status: ER Accout number: [id number] Admission Date: 11-15-2018 : 1950 Admission Diagnosis:PNEUMONIA, UNSPECIFIED ORGANISM Attending: STANTON VERONICA Current LOS: 4 Anticipated DC Date: Planned Disposition: Home Primary Insurance: MEDICARE A & B Discharge Planning Comments: CM MET WITH PATIENT ABOUT DC NEEDS. SHE STATES SHE PLANS TO DC TO HOME WITH HER FRIEND YOUSIF WHO IS IN HEALTHCARE. STATES SHE DOESN'T NEED REHAB OR HOME HEALTH, STATES SHE WILL BE IN GOOD HANDS WITH HER FRIEND. CM WILL FOLLOW AND ASSIST. President Educational Institution: Chloe Hoskins DCPIA - Discharge Planning Initial Assessment Updated by [email or web address]: Chloe Hoskins on 11/19/18 10:01 am * Is the patient Alert and Oriented? Yes * PCP YUE * Pharmacy [facility] * Preadmission Environment Home Alone * ADLs Independent * Equipment Nebulizer * List name and contact numbers for known caregivers / representatives who currently or will assist patient after discharge: YOUSIF ANDREEA, FRIEND, * Additional services required to return to the preadmission environment? No * Can the patient safely return to the preadmission environment? Yes * Has this patient been hospitalized within the prior 30 days at any hospital? No Last DP export: 11/19/18 9:02 a Patient Name: JOYCE BULLARD Page 11070 at 1011 All edits/amendments must be made on the electronic document DICTATION DATE: 11/19/18 1010 [facility] RN: JIMMY 11/19/18 1010 RPT#: [id number] DC DATE: STATUS: ADM IN [facility] [address] [place] [address] END OF REPORT
--- NOTE | 2018-11-19 10:15 | NUR ---
PT UP TO BATHROOM WITH WALKER AND STANDBY ASSISTANCE. HAD BM. STATED IT WAS NOT LIQUID LIKE SHE HAD BEEN HAVING. PT BACK INTO BED. NO OTHER NEEDS AT THIS TIME.
--- NOTE | 2018-11-19 13:00 | NUR ---
REC'D PT FROM [facility]. NO S/S OF ACUTE DISTRESS. CL IN PLACE.
--- NOTE | 2018-11-19 15:09 | NUR ---
Nutrition follow-up: Diet: Low sodium lactose free PO intake 75-100% of meals Labs reviewed +BM Wt: 204# PO intake good at this time RDN following.
--- NOTE | 2018-11-20 04:30 | NUR ---
REC'D IN BED UPRIGHT POSITION CHGE OF SHIFT WALKING ROUNDS.GROSS DRY COUGH CONTINUES NON-PRODUCTIVE AT PRESENT TIME. C/O SORE THROAT FEELING ON LEFT SIDE. ENCOURAGED TO MAKE DR AWARE OF THIS IN AM WHEN HE ROUNDS.VOICES UNDERSTANDING. WILL CONTINUE TO MONITOR FOR ANY CHGES. IN RESP. STATUS AND FOLLOW CURRENT PLAN OF CARE
[2018-11-20 05:36] VITALS: BP 157/65
[2018-11-20 06:45] LABS: BASOPHILS 0.2 % (0-2); EOSINOPHILS 4.2 % (0-7); HEMATOCRIT 33.7 % (36.0-48.0); HEMOGLOBIN 10.8 g/dL (12-16); IMMATURE GRANULOCYTES 0.2 % (0-5); LYMPHOCYTES 13.6 % (15-50); MCH 27.1 pg (26.0-34.0); MCV 84.5 fL (80.0-100.0); MEAN PLATELET VOLUME 9.5 fL (7.4-10.4); MONOCYTES 14.7 % (2-11); NEUTROPHILS 67.1 % (40-80); PLATELET COUNT 125 10x3/uL (130-400); RBC 3.99 10x6/uL (4.00-5.40); WBC 4.5 10x3/uL (4.8-10.8)
[2018-11-20 06:56] LABS: ALBUMIN 2.2 g/dL (3.4-5.0); ALKALINE PHOSPHATASE 94 U/L (46-116); ALT (SGPT) 36 U/L (10-68); BILIRUBIN - TOTAL 2.34 mg/dL (0.2-1.3); CALC OSMOLALITY 275 mosm/kg (275-300); CALCIUM 8.1 mg/dL (8.5-10.1); CARBON DIOXIDE 25.7 mmol/L (21.0-32.0); CHLORIDE - SERUM 108 mmol/L (98-107); CREATININE - SERUM 0.6 mg/dL (0.6-1.3); GLUCOSE 85 mg/dL (74-106); MAGNESIUM - SERUM 1.8 mg/dL (1.8-2.4); POTASSIUM - SERUM 3.8 mmol/L (3.5-5.1); PROTEIN - SERUM 5.6 g/dL (6.4-8.2); SODIUM 139 mmol/L (136-145); UREA NITROGEN 10 mg/dL (7-18); eGFR NON AFRICAN AMERICAN > 90 mL/min (90-120)
[2018-11-20 08:11] LABS: HEPATITIS C ANTIBODY <0.1 S/CO RAT (0.0-0.9)
[2018-11-20 09:01] VITALS: BP 145/71
[2018-11-20 12:48] VITALS: BP 154/68
--- NOTE | 2018-11-20 13:10 | NUR ---
0700 AWAKE IN BED DENIES PAIN EXPRESSED CONCERN OF HER HAND FLESHER SPEAKING WITH DR GUTIERREZ VIA PHONE SALINE LOCK NOTED TO RIGHT FOREARM PUFFY RED STREAK NOTED TO SITE. DISCONTINUED IV AND RESTARTED WITH 22 GAUGE TO RIGHT WRIST
--- NOTE | 2018-11-20 13:13 | NUR ---
1000 DR GUTIERREZ WAS ABLE TO SPEAK WITH PATIENTS CAREGIVE VIA PHONE AND ANSWER ALL HER QUESTIONS INFORMED PATIENT OF THIS
[2018-11-20] MEDS ORDERED: PULMICORT0.5 MG/21 UPD (13:15)
[2018-11-20] MEDS ORDERED: Tessalon Perle PO (13:15)
[2018-11-20] MEDS ORDERED: AMIODARONE HCL200 MG PO (13:15)
[2018-11-20] MEDS ORDERED: MUCINEX600 MG PO (13:16)
[2018-11-20] MEDS ORDERED: MUCINEX DM ER1 EAC1 PO (13:16)
[2018-11-20] MEDS ORDERED: Xopenex 0.63 MG INH INH (13:21)
[2018-11-20] MEDS ORDERED: ATROVENT 0.02%2.5 ML UPD (13:21)
[2018-11-20] MEDS ORDERED: BROVANA15 MCG/2 M INH (13:21)
[2018-11-20] MEDS ORDERED: PREDNISONE10 MG PO (16:38)
--- NOTE | 2018-11-20 16:45 | NUR ---
5580 WRITTEN AND VERBAL DISCHARGE INSTRUCTIONS GIVEN VERBALIZED UNDERSTANDING INDTRUCTED ON PREDNISONE ADDED TO PHARMACY ORDER FOR HOME MEDS RIGHT HAND IV D/C SITE SATISFACTORY FAMILY MEMBER PRESENT TO TAKE PATIENT HOME. ESCORTED TO CAR VIA WHEELCHAIR WITHOUT COMPLICATIIONS
--- NOTE | 2018-11-27 08:32 | MORECARE ---
CASE MANAGEMENT DISCHARGE SUMMARY PATIENT: JOYCE BULLARD UNIT: [id number] ADM DATE: 11/15/18 AGE: 68 : 48 SEX: F ROOM/BED: D.2237 AUTHOR: CHARLY HAYNES PHYSICIAN: REFERRING PHYSICIAN: STANTON VERONICA MD DATE OF SERVICE: 11/27/18 Discharge Plan Patient Name: JOYCE BULLARD Facility: [facility]:[place] : 1950 Planned Disposition: Home Anticipated Discharge Date: Discharge Date: 11/20/2018 Expected LOS: 0 Initial Reviewer: [email or web address] Initial Review Date: 11/15/2018 Generated: 11/27/18 9:31 am Comments DCP- Discharge Planning Updated by [email or web address]: Chloe Hoskins on 11/19/18 9:[address] Patient Name: JOYCE BULLARD Admission Status: ER Accout number: [id number] Admission Date: 11-15-2018 : 1950 Admission Diagnosis:PNEUMONIA, UNSPECIFIED ORGANISM Attending: STANTON VERONICA Current LOS: 4 Anticipated DC Date: Planned Disposition: Home Primary Insurance: MEDICARE A & B Discharge Planning Comments: CM MET WITH PATIENT ABOUT DC NEEDS. SHE STATES SHE PLANS TO DC TO HOME WITH HER FRIEND YOUSIF WHO IS IN HEALTHCARE. STATES SHE DOESN'T NEED REHAB OR HOME HEALTH, STATES SHE WILL BE IN GOOD HANDS WITH HER FRIEND. CM WILL FOLLOW AND ASSIST. Policy Services Representative: Chloe Hoskins DCPIA - Discharge Planning Initial Assessment Updated by [email or web address]: Chloe Hoskins on 11/19/18 10:01 am * Is the patient Alert and Oriented? Yes * PCP YUE * Pharmacy [facility] * Preadmission Environment Home Alone * ADLs Independent * Equipment Nebulizer * List name and contact numbers for known caregivers / representatives who currently or will assist patient after discharge: YOUSIF ANDREEA, FRIEND, * Additional services required to return to the preadmission environment? No * Can the patient safely return to the preadmission environment? Yes * Has this patient been hospitalized within the prior 30 days at any hospital? No Coverage Notice Reviewer: [id number] Makenzie Hoskins Notice Issued Date-Time: 11/20/2018 12:28 Notice Type: IM Discharge Notice Notice Delivered To: Patient Relationship to Patient: Self Laborer Cheesemaking Name: Delivery Method: HAND - Hand Delivered Inna Days: Prior Verbal Notification: Recipient Understood Notice: Yes Recipient Signature: Yes Med Rec Note Co-signed by Attending: Coverage Notice Comment: Last DP export: 11/19/18 9:11 a Patient Name: JOYCE BULLARD Page 26492 at 0832 All edits/amendments must be made on the electronic document DICTATION DATE: 11/27/18830 TANK HOUSE OPERATOR: JIMMY 11/27/18830 RPT#: [id number] DC DATE:11/20/18 STATUS: DIS IN [place] [id number] [place] [address] END OF REPORT
== END 2018-11-20 17:33 | disposition home or self-care (01) | DRG 871 ==
LOC: D.ER 13:35 → D.MS 15:41
PROVIDERS: Family Medicine; ADMIT Internal Medicine Nephrology; ATTEND Internal Medicine Nephrology
DX: A41.9 Sepsis, unspecified organism (principal); J18.9 Pneumonia, unspecified organism; I50.33 Acute on chronic diastolic (congestive) heart failure; J40 Bronchitis, not specified as acute or chronic; I11.0 Hypertensive heart disease with heart failure; K74.60 Unspecified cirrhosis of liver; E03.9 Hypothyroidism, unspecified; J98.4 Other disorders of lung; D64.9 Anemia, unspecified; I48.91 Unspecified atrial fibrillation; I27.20 Pulmonary hypertension, unspecified; D69.6 Thrombocytopenia, unspecified; E87.6 Hypokalemia; J47.9 Bronchiectasis, uncomplicated

== ENCOUNTER → 2018-12-16 08:38 | Outpatient (CLI) | payer MEDICARE, OTHER ==
[2018-11-17 14:33] VITALS: BMI 32.1
[~2018-12-16 08:38] MED LIST changes: +ATROVENT 0.02%2.5 ML UPD; +BROVANA15 MCG/2 M INH; +MUCINEX DM ER1 EAC1 PO; +MUCINEX600 MG PO; +PREDNISONE10 MG PO; +PULMICORT0.5 MG/21 UPD; +Tessalon Perle PO; +Xopenex 0.63 MG INH INH
--- NOTE | 2018-12-23 13:38 | EC ---
PATIENT:JOYCE BULLARD DATE OF SERVICE: 12/16/18 SEX: F MEDICAL RECORD: [id number] DATE OF : [birth year] LOCATION:[facility] AGE OF PATIENT: 68 ADMISSION DATE: 12/16/18 REFERRING PHYSICIAN: INTERPRETING PHYSICIAN: ROBERT HAYDEN MD ECHOCARDIOGRAM REPORT ECHO CHARGES 4 ECHO COMPLETE Date: 12/16/18 CLINICAL DIAGNOSIS: PULMONARY HTN ECHOCARDIOGRAPHIC MEASUREMENTS (adult normal given) AC root (d.<3.7cm) 2.8 cm LV Septum d (<1.2 cm> 0.7 cm Valve Excursion 1.4 cm LV Septum (systole) 1.1 cm Left Atria (s.<4.0cm> 3.5 cm LVPW d(<1.2cm) 1.1 cm RV (d.<2.3cm) 3.3 cm LVPW (sytole) 1.4 cm LV diastole(<5.6CM) 6.0 cm MV E-F(>70mm/sec) cm LV systole 4.6 cm LVOT Diameter 1.9 cm MV exc.(>10mm) cm Est.ejection fraction (50-75%) % DOPPLER: LVIT cm/sec A 30 cm/sec E 143 cm/sec LA cm/sec RVSP 38.8 mmHg LVOT 112 cm/sec AOP1/2T m/s Asc. Ao 141 cm/sec RVOT 47 cm/sec RA cm/sec PA 62 cm/sec AV Gradient Peak 8.0 mmHg AV Mean 4.4 mmHg AV Area 1.8 cm MV Gradient Peak 10.1 mmHg MV Mean 3.3 mmHg MV Area cm COMMENTS: Buck Swamper: Razia [facility] Food General Manager: 1 Dr. Hayden TAPE# PACS Pericardial Effusion N DATE OF SERVICE: PROCEDURE: Echocardiogram. FINDINGS: 1. Left ventricular chamber size is mildly dilated. Left ventricular systolic function is preserved at 55%. 2. Left atrium, right atrium, and right ventricular chamber sizes are within normal limits. 3. Valvular structures have normal structure and motion. ECHOCARDIOGRAM REPORT [id number] JOYCE BULLARD 4. Doppler interrogation reveals mild mitral regurgitation, [id number] tricuspid regurgitation, no other valvular insufficiency or stenosis. Pulmonary systolic pressure is estimated 39 mmHg. 5. No evidence of pericardial effusion or left ventricular thrombus. TRANSINT:[id number] Voice Confirmation ID: [id number] DOCUMENT ID: [id number] ROBERT HAYDEN MD at 1338 CC: [id number] DICTATION DATE: 12/16/18 1207 ASSOCIATE PROFESSOR OF VIOLIN: 12/16/18 1240 DEP CLI 12/16/18 [place] [id number] [place] [id number]
== END | disposition home or self-care (01) ==
LOC: D.ECHO 08:38 → D.RT 09:30
PROVIDERS: ATTEND Internal Medicine Pulmonary Disease
DX: I27.20 Pulmonary hypertension, unspecified (principal); R94.2 Abnormal results of pulmonary function studies

== ENCOUNTER → 2019-01-27 16:28 | Outpatient (CLI) | payer MEDICARE, OTHER ==
[2018-11-17 14:33] VITALS: BMI 32.1
[2019-01-27 17:26] LABS: ALBUMIN 2.7 g/dL (3.4-5.0); ANION GAP 7.1 mmol/L (8-16); BILIRUBIN - TOTAL 2.96 mg/dL (0.2-1.3); CALCIUM 8.9 mg/dL (8.5-10.1); CARBON DIOXIDE 36.5 mmol/L (21.0-32.0); CREATININE - SERUM 0.9 mg/dL (0.6-1.3); PROTEIN - SERUM 6.6 g/dL (6.4-8.2)
[2019-01-27 17:40] LABS: POTASSIUM - SERUM 2.6 mmol/L (3.5-5.1)
== END | disposition home or self-care (01) ==
LOC: D.LABREF 16:28
PROVIDERS: ATTEND Internal Medicine Cardiovascular Disease
DX: I10 Essential (primary) hypertension (principal); I48.91 Unspecified atrial fibrillation; R60.9 Edema, unspecified

== ENCOUNTER → 2019-02-05 17:00 | Outpatient (CLI) | payer MEDICARE, OTHER ==
[2018-11-17 14:33] VITALS: BMI 32.1
[2019-02-06 10:27] LABS: ANION GAP 7.4 mmol/L (8-16); CALCIUM 8.5 mg/dL (8.5-10.1); CARBON DIOXIDE 35.4 mmol/L (21.0-32.0); CREATININE - SERUM 1.2 mg/dL (0.6-1.3)
[2019-02-06 10:32] LABS: POTASSIUM - SERUM 2.8 mmol/L (3.5-5.1)
== END | disposition home or self-care (01) ==
LOC: D.LABREF 17:00
PROVIDERS: ATTEND Internal Medicine Cardiovascular Disease
DX: R60.9 Edema, unspecified (principal); I10 Essential (primary) hypertension

== ENCOUNTER → 2019-02-12 17:50 | Outpatient (CLI) | payer MEDICARE, OTHER ==
[2018-11-17 14:33] VITALS: BMI 32.1
[2019-02-12 18:47] LABS: ANION GAP 11.3 mmol/L (8-16); CALCIUM 8.2 mg/dL (8.5-10.1); CARBON DIOXIDE 33.6 mmol/L (21.0-32.0); CREATININE - SERUM 1.1 mg/dL (0.6-1.3)
[2019-02-12 18:59] LABS: POTASSIUM - SERUM 2.9 mmol/L (3.5-5.1)
== END | disposition home or self-care (01) ==
LOC: D.LABREF 17:50
PROVIDERS: ATTEND Internal Medicine Cardiovascular Disease
DX: R60.9 Edema, unspecified (principal)

== ENCOUNTER → 2019-02-13 12:25 | Outpatient (CLI) | payer MEDICARE, OTHER ==
[2018-11-17 14:33] VITALS: BMI 32.1
[2019-02-13 13:06] LABS: HEMOGLOBIN 11.3 g/dL (12-16); LYMPHOCYTES 11.7 % (15-50); MCH 29.6 pg (26.0-34.0); MCHC 32.3 g/dL (31.0-37.0); MCV 91.6 fL (80.0-100.0); MEAN PLATELET VOLUME 11.6 fL (7.4-10.4); NEUTROPHILS 75.7 % (40-80); PLATELET COUNT 106 10x3/uL (130-400); RBC 3.82 10x6/uL (4.00-5.40); RDW 18.1 % (11.5-14.5); WBC 6.7 10x3/uL (4.8-10.8)
[2019-02-13 13:15] LABS: CALCIUM 8.4 mg/dL (8.5-10.1); CARBON DIOXIDE 35.1 mmol/L (21.0-32.0); CREATININE - SERUM 1.1 mg/dL (0.6-1.3)
[2019-02-13 13:17] LABS: ANION GAP 7.6 mmol/L (8-16)
[2019-02-13 13:20] LABS: POTASSIUM - SERUM 2.7 mmol/L (3.5-5.1)
== END | disposition home or self-care (01) ==
LOC: D.LAB 12:25
PROVIDERS: ATTEND Internal Medicine Pulmonary Disease
DX: I27.20 Pulmonary hypertension, unspecified (principal); D64.9 Anemia, unspecified

== ENCOUNTER → 2019-03-19 18:07 | Outpatient (CLI) | payer MEDICARE, OTHER ==
[2018-11-17 14:33] VITALS: BMI 32.1
[2019-03-19 18:27] LABS: % SATURATION 14 % (15-55); IRON 46 ug/dl (35-150); TOTAL IRON BIND CAPACITY 308 ug/dl (260-445); UNSAT IRON BIND CAPACITY 262 ug/dl (150-375)
[2019-03-19 18:41] LABS: ANION GAP 8.1 mmol/L (8-16); CALCIUM 8.6 mg/dL (8.5-10.1); CARBON DIOXIDE 33.9 mmol/L (21.0-32.0)
== END | disposition home or self-care (01) ==
LOC: D.LABREF 18:07
PROVIDERS: ATTEND Internal Medicine Cardiovascular Disease
DX: E87.6 Hypokalemia (principal); D64.9 Anemia, unspecified

== ENCOUNTER → 2019-05-01 15:17 | Outpatient (CLI) | payer MEDICARE, OTHER ==
[2018-11-17 14:33] VITALS: BMI 32.1
== END | disposition home or self-care (01) ==
LOC: D.RT 04-29 11:00 → D.CT 04-29 11:30
PROVIDERS: ATTEND Internal Medicine Pulmonary Disease
DX: R94.2 Abnormal results of pulmonary function studies (principal)

== ENCOUNTER 2019-08-23 09:00 | Inpatient (IN) | payer MEDICARE, OTHER ==
[~2019-08-23] VITALS: Ht 170.2 cm; Wt 86.1 kg
[2019-08-23 09:35] LABS: BASOPHILS 0.6 % (0-2); EOSINOPHILS 1.9 % (0-7); HEMATOCRIT 29.6 % (36.0-48.0); HEMOGLOBIN 9.6 g/dL (12-16); IMMATURE GRANULOCYTES 0.2 % (0-5); LYMPHOCYTES 20.3 % (15-50); MCH 28.7 pg (26.0-34.0); MCHC 32.4 g/dL (31.0-37.0); MCV 88.6 fL (80.0-100.0); MONOCYTES 16.7 % (2-11); NEUTROPHILS 60.3 % (40-80); PLATELET COUNT 119 10x3/uL (130-400); RBC 3.34 10x6/uL (4.00-5.40); RDW 21.1 % (11.5-14.5); WBC 4.7 10x3/uL (4.8-10.8)
[2019-08-23 09:41] LABS: CALC OSMOLALITY 270 mosm/kg (275-300); CALCIUM 8.3 mg/dL (8.5-10.1); CARBON DIOXIDE 24.1 mmol/L (21.0-32.0); CHLORIDE - SERUM 104 mmol/L (98-107); CREATININE - SERUM 1.3 mg/dL (0.6-1.3); GLUCOSE 98 mg/dL (74-106); POTASSIUM - SERUM 3.4 mmol/L (3.5-5.1); SODIUM 135 mmol/L (136-145); UREA NITROGEN 14 mg/dL (7-18); eGFR NON AFRICAN AMERICAN 43 mL/min (90-120)
[2019-08-23 10:13] LABS: ALBUMIN 2.2 g/dL (3.4-5.0); ALKALINE PHOSPHATASE 99 U/L (30-120); ALT (SGPT) 23 U/L (10-68); CKMB 3.1 U/L (0.0-3.6); CREATINE KINASE 80 UL (21-215); MAGNESIUM - SERUM 1.4 mg/dL (1.8-2.4); PROTEIN - SERUM 6.2 g/dL (6.4-8.2)
[2019-08-23 10:15] LABS: TROPONIN-I 0.084 ng/mL (0.000-0.060)
--- NOTE | 2019-08-23 11:30 | NUR ---
PT ARRIVED VIA STRECHER FROM ER AND AMBULATED WITH STEADY GAIT TO BED. DENIES NEEDS OR PAIN AT THIS TIME. ORIENTED TO ROOM. CALL LIGHT WITHIN REACH. BED IN LOWEST POSITION. WILL CONTINUE T0 MONITNOR
[2019-08-23] MEDS ORDERED: K-DUR20 MEQ PO (11:58)
[2019-08-23] MEDS ORDERED: METOLAZONE2.5 MG PO (11:59)
[2019-08-23] MEDS ORDERED: MEDROL4 MG PO (12:00)
[2019-08-23 12:59] VITALS: BP 120/62; BMI 27.0
--- NOTE | 2019-08-23 13:02 | NUR ---
ADMISSION ASSESSMENT COMPLETE. PATIENT DENIES FALLING AT HOME OR HITTING HER BUTTOCKS BY SITTING DOWN HARD, HOWEVER, PATIENT HAS TWO THUMB SIZE BRUISES TO RIGHT GLUTEAL CLEFT, AND LARGER BRUISES TO BILATERAL HIP AND BUTTOCKS. HIP AND BUTTOCK BRUISES ARE PURPLE AND GLUTEAL CLEFT BRUISE IS SOLID DARK RED NON BLANCHABLE APPROX 1.5X 2.5.
[2019-08-23 13:04] VITALS: BP 161/65
--- NOTE | 2019-08-23 13:15 | NUR ---
EMERGENCY CONTACTS - AMADEO (BROTHER IN LAW) [phone], CELL [phone]. PATIENT STATES HER SISTER IS IN THE HOSPITAL AND THIS IS THE ONLY OTHER PERSON THAT SHE HAS AVAILABLE TO CALL.
--- NOTE | 2019-08-23 14:28 | NUR ---
AT BEDSIDE FOR THORACENTESIS, 2800ML REMOVED AT THIS TIME.
[2019-08-23 15:24] LABS: % SATURATION 33 % (15-55); IRON 69 ug/dl (35-150); TOTAL IRON BIND CAPACITY 203 ug/dl (260-445); UNSAT IRON BIND CAPACITY 134 ug/dl (150-375)
[2019-08-23 15:47] LABS: PROTEIN - BODY FLUID 1.7 G/DL
--- NOTE | 2019-08-23 15:52 | NUR ---
PT AWAKE AND ORIENTED, TOLERATED THORACENTISIS WITH DR. GUTIERREZ WELL, TOOK 750 IN FLUID OFF LUNGS. HAVING LARGE AMOUNTS OF PROLONGED COUGHING, RESPIRATORY ADDRESSING. CL IN REACH, SRX2.
[2019-08-23 16:32] LABS: MACROPHAGES BF 29 %; NEUT - BF 16 %
[2019-08-23 17:36] LABS: CREATINE KINASE 92 UL (21-215)
[2019-08-23 17:37] LABS: TROPONIN-I 0.086 ng/mL (0.000-0.060)
--- NOTE | 2019-08-23 17:53 | NUR ---
PT LYING IN BED WATCHING TELIVISION. BROUGHT TISSUES PER HER REQUEST. NO COMPLAINTS OR CONCERNS AT THIS TIME. COUGHING HAS EBBED OFF GREATLY SINCE LIDOCANE BREATHING TX. ALL QUESTIONS ANSWERED TO THE BEST OF MY ABILITY. CL IN REACH, SRX2.
[2019-08-23 18:53] VITALS: BP 137/47
--- NOTE | 2019-08-23 19:29 | NUR ---
RECIEVED BEDSIDE SHIFT REPORT. ALERT AND ORIENTED X4. UP AD RASTA TO B/R. O2@ 2 LITERS PER N/C. IV TO LT AC SL. TELEMETRY IN PLACE. BILATERAL ARMS RESERVED D/T MASCETOMY. DENIES ANY NEEDS AT THIS TIME.
[2019-08-23 20:10] LABS: CKMB 2.4 U/L (0.0-3.6); CREATINE KINASE 69 UL (21-215)
[2019-08-23 20:20] LABS: TROPONIN-I 0.083 ng/mL (0.000-0.060)
[2019-08-23 20:30] VITALS: BP 106/40
[2019-08-24 00:30] VITALS: BP 117/43
[2019-08-24 01:49] LABS: CKMB 2.1 U/L (0.0-3.6); CREATINE KINASE 57 UL (21-215)
[2019-08-24 01:50] LABS: TROPONIN-I 0.086 ng/mL (0.000-0.060)
[2019-08-24 04:30] VITALS: BP 135/54
[2019-08-24 05:17] LABS: BASOPHILS 0.2 % (0-2); EOSINOPHILS 0.2 % (0-7); HEMATOCRIT 26.4 % (36.0-48.0); HEMOGLOBIN 8.6 g/dL (12-16); IMMATURE GRANULOCYTES 0.2 % (0-5); LYMPHOCYTES 12.6 % (15-50); MCH 28.7 pg (26.0-34.0); MCHC 32.6 g/dL (31.0-37.0); MEAN PLATELET VOLUME 9.7 fL (7.4-10.4); MONOCYTES 12.1 % (2-11); NEUTROPHILS 74.7 % (40-80); PLATELET COUNT 126 10x3/uL (130-400); RDW 20.7 % (11.5-14.5); WBC 4.1 10x3/uL (4.8-10.8)
[2019-08-24 05:25] LABS: INR 1.73 (0.85-1.17)
[2019-08-24 05:27] LABS: ANION GAP 9.6 mmol/L (8-16); CARBON DIOXIDE 26.3 mmol/L (21.0-32.0); CREATININE - SERUM 1.1 mg/dL (0.6-1.3)
[2019-08-24 05:28] LABS: POTASSIUM - SERUM 2.9 mmol/L (3.5-5.1)
--- NOTE | 2019-08-24 07:20 | NUR ---
REPORT RECEIVED. ASSESSMENT COMPLETE PER FLOW SHEET. REFER FOR COMPELTE FINDINGS. DENIES NEEDS. WILL CONTINUE TO MONTIOR
[2019-08-24 10:37] VITALS: BP 106/43
[2019-08-24 14:17] VITALS: BP 121/35
[2019-08-24 14:23] LABS: BILIRUBIN NEGATIVE (NEGATIVE); GLUCOSE NEGATIVE (NEGATIVE); KETONE NEGATIVE (NEGATIVE); NITRITE NEGATIVE (NEGATIVE); UROBILINOGEN NORMAL (NORMAL)
--- NOTE | 2019-08-24 19:10 | NUR ---
WITH RESP TX AT THIS TIME DENIES OTHER NEEDS BED IS LOW AND LOCKED CALL LIGHT IS WIT PT PT ALERT AND OX4
[2019-08-24 19:47] VITALS: BP 129/51
[2019-08-25 00:26] VITALS: BP 102/57
--- NOTE | 2019-08-25 07:00 | NUR ---
RECEIVED REPORT. ASSUMED CARE OF PATIENT. BEDSIDE SHIFT REPORT COMPLETE. WHITE BOARD UPDATED. PATIENT SITTING UP IN BED COMPLETING NEBULIZER TREATMENT. CALL LIGHT WITHIN REACH.
--- NOTE | 2019-08-25 07:00 | NUR ---
RECEIVED REPORT. ASSUMED CARE OF PATIENT. PATIENT SITTING UP IN BED RECEIVING NEBULIZER TREATMENT. BEDSIDE REPORT COMPLETED. WHITE BOARD UPDATED. CALL LIGHT WITHIN REACH. NO DISTRESS.
--- NOTE | 2019-08-25 07:11 | NUR ---
LAB HERE TO DRAW BLOOD, PATIENT HAD BILATERAL MASECTOMY AND QUESTIONING WHERE TO DRAW BLOOD. PATIENT STATES HER BLOOD HAS BEEN DRAWN FROM EITHER ARM, JUST NO TURNICATE IS ABLE TO BE PLACED. LAB DRAW FROM LEFT FOREARM.
--- NOTE | 2019-08-25 07:11 | NUR ---
LAB HERE TO DRAW BLOOD, PATIENT IS ALERT AND ORIENTED AND STATES BLOOD CAN BE DRAWN FROM EITHER ARM, JUST NO TURNICATE CAN USED. PATIENT IS BILATERAL MASECTOMY.
[2019-08-25 07:22] LABS: BASOPHILS 0.2 % (0-2); EOSINOPHILS 1.6 % (0-7); HEMATOCRIT 27.6 % (36.0-48.0); IMMATURE GRANULOCYTES 0.2 % (0-5); LYMPHOCYTES 18.8 % (15-50); MCH 28.3 pg (26.0-34.0); MCHC 32.6 g/dL (31.0-37.0); MCV 86.8 fL (80.0-100.0); MEAN PLATELET VOLUME 9.7 fL (7.4-10.4); MONOCYTES 15.7 % (2-11); NEUTROPHILS 63.5 % (40-80); PLATELET COUNT 111 10x3/uL (130-400); RBC 3.18 10x6/uL (4.00-5.40); RDW 20.4 % (11.5-14.5); WBC 4.3 10x3/uL (4.8-10.8)
[2019-08-25 07:46] LABS: ANION GAP 9.6 mmol/L (8-16); CALCIUM 7.8 mg/dL (8.5-10.1); CARBON DIOXIDE 27.8 mmol/L (21.0-32.0); CREATININE - SERUM 1.3 mg/dL (0.6-1.3)
[2019-08-25 07:52] LABS: POTASSIUM - SERUM 2.4 mmol/L (3.5-5.1)
--- NOTE | 2019-08-25 08:27 | NUR ---
EP INITIATED DUE TO LOW K+.
[2019-08-25 09:00] VITALS: BP 112/53
--- NOTE | 2019-08-25 11:09 | NUR ---
PATIENTS CLIP ON EARRINGS, SILVER COLORED, FOUND SITTING ON NIGHT STAND. WHEN INFORMED THE PATIENT HER EARRINGS MIGHT GET LOST, THE PATIENT HAD THIS NURSE PLACE EARRINGS IN BLUE [facility] BAG THAT WAS GIVEN ON ADMISSION. PATIENT SITTING IN BED. NO DISTRESS. CALL LIGHT WITHIN REACH.
[2019-08-25 12:00] VITALS: BP 128/54
[2019-08-25 16:47] VITALS: BP 114/60
--- NOTE | 2019-08-25 19:30 | NUR ---
PT IN BED, AAO X 3, RESP EVEN AND UNLABORED. NO DISTRESS NOTED, CL IN REACH, SR UP X 2.
[2019-08-25 19:48] VITALS: BP 124/42
[2019-08-26 00:12] VITALS: BP 119/41
--- NOTE | 2019-08-26 02:38 | NUR ---
I have reviewed this patient and I concur with the Shift Assessment completed by the Licensed Practical Nurse today this shift.
[2019-08-26 04:55] VITALS: BP 95/42
[2019-08-26 06:13] LABS: BASOPHILS 0.2 % (0-2); EOSINOPHILS 1.3 % (0-7); HEMATOCRIT 28.1 % (36.0-48.0); HEMOGLOBIN 9.1 g/dL (12-16); IMMATURE GRANULOCYTES 0.2 % (0-5); LYMPHOCYTES 17.2 % (15-50); MCH 28.1 pg (26.0-34.0); MCHC 32.4 g/dL (31.0-37.0); MCV 86.7 fL (80.0-100.0); MONOCYTES 16.7 % (2-11); NEUTROPHILS 64.4 % (40-80); RBC 3.24 10x6/uL (4.00-5.40); RDW 20.4 % (11.5-14.5)
[2019-08-26 06:20] LABS: PLATELET COUNT 140 10x3/uL (130-400); WBC 5.5 10x3/uL (4.8-10.8)
[2019-08-26 06:36] LABS: ANION GAP 7.1 mmol/L (8-16); CALCIUM 7.5 mg/dL (8.5-10.1); CREATININE - SERUM 1.4 mg/dL (0.6-1.3); MAGNESIUM - SERUM 1.8 mg/dL (1.8-2.4); POTASSIUM - SERUM 3.1 mmol/L (3.5-5.1)
[2019-08-26 09:53] VITALS: BP 126/46
[2019-08-26 11:09] LABS: FUNGUS STAIN Final report (())
[2019-08-26 13:33] VITALS: BP 123/39
--- NOTE | 2019-08-26 14:57 | NUR ---
PT LYING IN BED. EYES CLOSED. CHEST RISING AND FALLING. BED LOW. CL IN REACH. WILL CONTINUE TO MONITOR.
[2019-08-26 15:10] LABS: ACID FAST SMEAR Negative (()); AFB SPECIMEN PROCESSING Not Indicated (())
--- NOTE | 2019-08-26 15:51 | NUR ---
I have reviewed this patient and I concur with the Shift Assessment completed by the Licensed Practical Nurse today this shift.
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
--- NOTE | 2019-08-26 18:37 | NUR ---
COMPLETE LINEN CHANGE DONE. PT STATES SHE WOULD LIKE A SHOWER TOMORROW. I VERBALIZED UNDERSTANDING. WILL PASS ON IN REPORT.
--- NOTE | 2019-08-26 19:15 | NUR ---
REPORT RECEIVED AND ROUNDING COMPLETE. PATIENT LAYING IN BED EYES CLOSED BREATHING SHALLOW AND EVEN. WEARING NASAL CANNULA WITH O2 AT 2L, PATIENT HAS A RIGHT WRIST/HAND PIV WITH FLUIDS RUNNING, NO S/SX OF INFILTRATION AT THIS ITME. CALL LIGHT WITHIN REACH AND EBD IN LOWEST LOCKED POSITION. NO S/SX OF DISTRESS NOTED.
[2019-08-26 20:00] VITALS: BP 124/58
[2019-08-27] VITALS: BP 122/50
[2019-08-27 04:00] VITALS: BP 113/46
[2019-08-27 04:49] LABS: BASOPHILS 0 % (0-2); EOSINOPHILS 1.3 % (0-7); HEMATOCRIT 26.5 % (36.0-48.0); HEMOGLOBIN 8.6 g/dL (12-16); IMMATURE GRANULOCYTES 0.2 % (0-5); LYMPHOCYTES 15.6 % (15-50); MCH 28.3 pg (26.0-34.0); MCHC 32.5 g/dL (31.0-37.0); MCV 87.2 fL (80.0-100.0); MEAN PLATELET VOLUME 9.2 fL (7.4-10.4); MONOCYTES 15.8 % (2-11); NEUTROPHILS 67.1 % (40-80); PLATELET COUNT 129 10x3/uL (130-400); RBC 3.04 10x6/uL (4.00-5.40); RDW 20.6 % (11.5-14.5); WBC 5.2 10x3/uL (4.8-10.8)
[2019-08-27 05:02] LABS: ANION GAP 6.3 mmol/L (8-16); CALCIUM 7.9 mg/dL (8.5-10.1); CARBON DIOXIDE 31.1 mmol/L (21.0-32.0); CREATININE - SERUM 1.4 mg/dL (0.6-1.3)
[2019-08-27 05:08] LABS: POTASSIUM - SERUM 3.4 mmol/L (3.5-5.1)
--- NOTE | 2019-08-27 07:29 | NUR ---
PT RESTING PEACEFULLY, EYES CLOSED, BREATHS EVEN REGUALR AND UNLABORED. NO SIGNS OR SYMPTOMS OF ACUTE DISTRESS NOTED AT THIS TIME. DID NOT WAKE WE DID BEDSIDE REPORT. CL IN REACH, SRX2.
[2019-08-27 09:14] VITALS: BP 123/66
--- NOTE | 2019-08-27 10:00 | NUR ---
PT ALERT A ND ORIENTED, TOOK MEDICAITONS WITHOUT COMPLICATIONS. NO COMPLAINTS RO CONCERNS, HOPEFUL TO GO HOME SOON. CL INR EACH,S RX2.
[2019-08-27 10:10] VITALS: BMI 27.1
--- NOTE | 2019-08-27 10:50 | NUR ---
I have reviewed this patient and I concur with the Shift Assessment completed by the Licensed Practical Nurse today this shift.
--- NOTE | 2019-08-27 13:33 | NUR ---
PT AWAKE AN DORIENTED, TREATED POTASSIUM/MAG PER PROTOCOL. NO COMPLAITNS OR CONCERNS CL IN REACH, SRX2.
--- NOTE | 2019-08-27 15:06 | NUR ---
I/V INFILTRATED, REPLACED WITH 20G TO RFA, ONE STICK. NO TURNOQUETS PER PT
--- NOTE | 2019-08-27 16:43 | MORECARE ---
CASE MANAGEMENT DISCHARGE SUMMARY PATIENT: JOYCE BULLARD UNIT: [id number] ADM DATE: 08/23/19 AGE: 69 : 48 SEX: F ROOM/BED: D.2107 AUTHOR: CHARLY HAYNES PHYSICIAN: REFERRING PHYSICIAN: STANTON VERONICA MD DATE OF SERVICE: 08/27/19 Discharge Plan Patient Name: JOYCE BULLARD [facility] [facility] 1950 Planned Disposition: Home Anticipated Discharge Date: Discharge Date: Expected LOS: Initial Reviewer: [email or web address] Initial Review Date: 08/27/2019 Generated: 08/27/19 5:42 pm Patient Name: JOYCE BULLARD Page [id number] at 1643 All edits/amendments must be made on the electronic document DICTATION DATE: 08/27/191641 GROCERY WORKER: JIMMY 08/27/191641 RPT#: [id number] DC DATE: STATUS: ADM IN [facility] [address] [place] [address] END OF REPORT
[2019-08-27 16:57] VITALS: BP 136/60
--- NOTE | 2019-08-27 17:04 | MORECARE ---
CASE MANAGEMENT DISCHARGE SUMMARY PATIENT: JOYCE BULLARD UNIT: [id number] ADM DATE: 08/23/19 AGE: 69 : 48 SEX: F ROOM/BED: D.2107 AUTHOR: CHARLY HAYNES PHYSICIAN: REFERRING PHYSICIAN: STANTON VERONICA MD DATE OF SERVICE: 08/27/19 Discharge Plan Patient Name: JOYCE BULLARD [facility] : 1950 Planned Disposition: Home Anticipated Discharge Date: Discharge Date: Expected LOS: Initial Reviewer: [email or web address] Initial Review Date: 08/27/2019 Generated: 08/27/19 6:03 pm DCPIA - Discharge Planning Initial Assessment Updated by [email or web address]: Jade Rueda on 08/27/19 5:03 pm * Is the patient Alert and Oriented? Yes * How many steps to enter\exit or inside your home? 2/0 * PCP Dr. Sanford * Pharmacy [facility] * Preadmission Environment Home Alone * ADLs Partial Dependent * Partial ADLs (Assistance needed) Ambulation * Equipment Cane Elevated [place] Seat Nebulizer Walker * List name and contact numbers for known caregivers / representatives who currently or will assist patient after discharge: Monica Osuna [facility] - [phone] Juan C Dwyer [phone] * Verbal permission to speak to the caregivers and representatives has been obtained from the patient. Yes * Community resources currently utilized None * Additional services required to return to the preadmission environment? No * Can the patient safely return to the preadmission environment? Yes * Has this patient been hospitalized within the prior 30 days at any hospital? No Last DP export: 08/27/19 3:43 p Patient Name: JOYCE BULLARD Page [id number] at 1704 All edits/amendments must be made on the electronic document DICTATION DATE: 08/27/191702 TECHNOLOGY ASSISTANT: JIMMY 08/27/191702 RPT#: [id number] DC DATE: STATUS: ADM IN [facility] [address] [place] [address] END OF REPORT
--- NOTE | 2019-08-27 17:12 | MORECARE ---
CASE MANAGEMENT DISCHARGE SUMMARY PATIENT: JOYCE BULLARD UNIT: [id number] ADM DATE: 08/23/19 AGE: 69 : 48 SEX: F ROOM/BED: D.4920 AUTHOR: DALLAS,DOC PHYSICIAN: REFERRING PHYSICIAN: STANTON VERONICA MD DATE OF SERVICE: 08/27/19 Discharge Plan Patient Name: JOYCE BULLARD Facility: [facility]:[place] : 1950 Planned Disposition: Home Anticipated Discharge Date: Discharge Date: Expected LOS: Initial Reviewer: [email or web address] Initial Review Date: 08/27/2019 Generated: 08/27/19 6:11 pm Comments DCP- Discharge Planning Updated by [email or web address]: Jade Rueda on 08/27/19 4:[address] Patient Name: JOYCE BULLARD Admission Status: ER Accout number: [id number] Admission Date: 08-23-2019 : 1950 Admission Diagnosis:SHORTNESS OF BREATH Attending: STANTON VERONICA Current LOS: 4 Anticipated DC Date: Planned Disposition: Home Primary Insurance: MEDICARE A & B Discharge Planning Comments: CM met with patient to complete initial dc planning assessment. CM educated patient on the CM role and verbal consent given by patient to complete assessment. Patient lives at home alone. At discharge patient plans to return and feels this is a safe discharge. CM discussed availability of home health, rehab services, and medical equipment. Patient denied known discharge needs at this time. She gets her nebulizer supplies from [employer], so GORDY for [facility] signed if oxygen is needed. She will need a qualifying walk test for home oxygen needs prior to discharge. CM will continue to follow and will assist as needed with dc plans/needs. Slip Feeder: Jade uReda DCPIA - Discharge Planning Initial Assessment Updated by [email or web address]: Jade Rueda on 08/27/19 5:03 pm * Is the patient Alert and Oriented? Yes * How many steps to enter\exit or inside your home? 2/0 * PCP Dr. Sanford * Pharmacy [facility] * Preadmission Environment Home Alone * ADLs Partial Dependent * Partial ADLs (Assistance needed) Ambulation * Equipment Cane Elevated [place] Seat Nebulizer Walker * List name and contact numbers for known caregivers / representatives who currently or will assist patient after discharge: Monica Osuna - [place] - [phone] Juan C Dwyer - [phone] * Verbal permission to speak to the caregivers and representatives has been obtained from the patient. Yes * Community resources currently utilized None * Additional services required to return to the preadmission environment? No * Can the patient safely return to the preadmission environment? Yes * Has this patient been hospitalized within the prior 30 days at any hospital? No Coverage Notice Reviewer: [id number] Makenzie Rueda Notice Issued Date-Time: 08/27/2019 17:05 Notice Type: Patient Choice Letter Notice Delivered To: Patient Relationship to Patient: Self Engraving Patternmaker Name: Delivery Method: HAND - Hand Delivered Inna Days: Prior Verbal Notification: Recipient Understood Notice: Yes Recipient Signature: Yes Med Rec Note Co-signed by Attending: Coverage Notice Comment: gordy for [facility] DP export: 08/27/19 4:04 p Patient Name: JOYCE BULLARD Page 19678 at 1712 All edits/amendments must be made on the electronic document DICTATION DATE: 08/27/191710 GALLERY INTERN: JIMMY 08/27/191710 RPT#: [id number] DC DATE: STATUS: ADM IN [facility] [address] [place] [address] END OF REPORT
[2019-08-27 17:59] LABS: MAGNESIUM - SERUM 1.7 mg/dL (1.8-2.4); POTASSIUM - SERUM 3.8 mmol/L (3.5-5.1)
--- NOTE | 2019-08-27 19:30 | NUR ---
REPORT RECEIVED AND ROUNDING COMPLETE. PATIENT LAYING IN BED IN HIGH FOWLERS, WEARING NASAL CANNULA WITH O2 AT 2L. PATIENT HAS A RIGHT FOREARM THAT IS RUNNING NORMAL SALINE AT THIS TIME. CHECKED ORDERS OF THE MAR AND THERE IS NO ORDER FOR RUNNING CONT. FLUIDS, PIV HAS BEEN SALINE LOCKED AT THIS TIME. PATIENT SHOWS NO S/SX OF DISTRESS AT THIS TIME. CALL LIGHT WITHIN REACH AND BED IN LOWEST LOCKED POSITION.
[2019-08-27 20:00] VITALS: BP 121/54
[2019-08-28] VITALS: BP 119/53
[2019-08-28 04:00] VITALS: BP 127/55
[2019-08-28 05:42] LABS: BASOPHILS 0 % (0-2); HEMATOCRIT 27.9 % (36.0-48.0); HEMOGLOBIN 9.2 g/dL (12-16); IMMATURE GRANULOCYTES 0.3 % (0-5); LYMPHOCYTES 13.9 % (15-50); MCH 28.7 pg (26.0-34.0); MCV 86.9 fL (80.0-100.0); MEAN PLATELET VOLUME 9.6 fL (7.4-10.4); MONOCYTES 17.4 % (2-11); NEUTROPHILS 67.4 % (40-80); PLATELET COUNT 119 10x3/uL (130-400); RBC 3.21 10x6/uL (4.00-5.40); RDW 20.7 % (11.5-14.5)
[2019-08-28 05:58] LABS: ANION GAP 5.1 mmol/L (8-16); CALCIUM 8.2 mg/dL (8.5-10.1); CREATININE - SERUM 1.5 mg/dL (0.6-1.3)
[2019-08-28 05:59] LABS: POTASSIUM - SERUM 3.1 mmol/L (3.5-5.1)
[2019-08-28 08:30] LABS: MAGNESIUM - SERUM 1.8 mg/dL (1.8-2.4); PHOSPHOROUS 2.9 mg/dL (2.5-4.9)
[2019-08-28 08:42] VITALS: BP 131/59
--- NOTE | 2019-08-28 08:50 | MORECARE ---
CASE MANAGEMENT DISCHARGE SUMMARY PATIENT: JOYCE BULLARD UNIT: [id number] ADM DATE: 08/23/19 AGE: 69 : 48 SEX: F ROOM/BED: D.2101 AUTHOR: DALLAS,DOC PHYSICIAN: REFERRING PHYSICIAN: STANTON VERONICA MD DATE OF SERVICE: 08/28/19 Discharge Plan Patient Name: JOYCE BULLARD Facility: [facility]:[place] : 1950 Planned Disposition: Home Anticipated Discharge Date: Discharge Date: Expected LOS: Initial Reviewer: [email or web address] Initial Review Date: 08/27/2019 Generated: 08/28/19 9:50 am Comments DCP- Discharge Planning Updated by [email or web address]: Jade Rueda on 08/27/19 4:[address] Patient Name: JOYCE BULLARD Admission Status: ER Accout number: [id number] Admission Date: 08-23-2019 : 1950 Admission Diagnosis:SHORTNESS OF BREATH Attending: STANTON VERONICA Current LOS: 4 Anticipated DC Date: Planned Disposition: Home Primary Insurance: MEDICARE A & B Discharge Planning Comments: CM met with patient to complete initial dc planning assessment. CM educated patient on the CM role and verbal consent given by patient to complete assessment. Patient lives at home alone. At discharge patient plans to return and feels this is a safe discharge. CM discussed availability of home health, rehab services, and medical equipment. Patient denied known discharge needs at this time. She gets her nebulizer supplies from [employer], so DONA for [facility] signed if oxygen is needed. She will need a qualifying walk test for home oxygen needs prior to discharge. CM will continue to follow and will assist as needed with dc plans/needs. Pulp Press Tender: Jade Rueda DCPIA - Discharge Planning Initial Assessment Updated by [id number]: Jade Rueda on 08/27/19 5:03 pm * Is the patient Alert and Oriented? Yes * How many steps to enter\exit or inside your home? 2/0 * PCP Dr. Sanford * Pharmacy [facility] * Preadmission Environment Home Alone * ADLs Partial Dependent * Partial ADLs (Assistance needed) Ambulation * Equipment Cane Elevated [place] Seat Nebulizer Walker * List name and contact numbers for known caregivers / representatives who currently or will assist patient after discharge: Monica Osuna - [place] - [phone] Juan C Dwyer - [phone] * Verbal permission to speak to the caregivers and representatives has been obtained from the patient. Yes * Community resources currently utilized None * Additional services required to return to the preadmission environment? No * Can the patient safely return to the preadmission environment? Yes * Has this patient been hospitalized within the prior 30 days at any hospital? No Coverage Notice Reviewer: [id number] Makenzie Rueda Notice Issued Date-Time: 08/27/2019 17:05 Notice Type: Patient Choice Letter Notice Delivered To: Patient Relationship to Patient: Self Administrative Library Assistant Name: Delivery Method: HAND - Hand Delivered Inna Days: Prior Verbal Notification: Recipient Understood Notice: Yes Recipient Signature: Yes Med Rec Note Co-signed by Attending: Coverage Notice Comment: [facility] for [facility] DP export: 08/27/19 4:12 p Patient Name: JOYCE BULLARD Page [phone] at 0850 All edits/amendments must be made on the electronic document DICTATION DATE: 08/28/19 0850 FRUIT PEELER: JIMMY 08/28/19 0850 RPT#: [id number] DC DATE: STATUS: ADM IN [facility] [address] [place] [address] END OF REPORT
[2019-08-28 17:31] VITALS: BP 131/56
--- NOTE | 2019-08-28 17:58 | NUR ---
PT EATING DINNER WITH HOB @90 DEGREES. PT BEGAN TO DEVELOP LOUD HARSH FREQUENT COUGH WITH MODERATE AMOUNTS OF BRIGHT RED BLOOD. SAT PT ON SIDE OF BED. PT WAS ABLE TO TALK, DEEP BREATH, COUGH, AND FOLLOW COMMANDS. PT MAINTAINED APPROPRIATE 02 SATS. ATTEMPTED HIMLICK MANEUVER BUT WAS UNSUCCESSFUL. NOTIFIED RT WHO DEEP SUNCTIONING PT. NOTIFIED OF BLOOD AND CONDITION OF PATIENT. COUGH BEGAN TO DISPERSE AND MINIMIZE. WILL CTM. PT STATES SHE FEELS BETTER AT THIS TIME.
[2019-08-28 20:30] VITALS: BP 115/45
--- NOTE | 2019-08-28 21:47 | NUR ---
INITIAL ROUNDS COMPLETED AT 1915HRS. PT DENIEDANY DISCOMFORT. PT COUGHING UP BLOOD TINGED MUCOUS. O2 SAT 94% ON RA. VSS. SR PER CM HR 67. ASSESSMENT COMPLETED AT 2010 HRS. IV TO RFA SL. LUNGS DIMINISHED IN BASES BILAT. ALERT AND ORIENTED TO PERSON, PLACE AND TIME. JOSE. BRUISES NOTED TO BILAT ARMS. PALPABLE PERIPHEAL PULSES. PM MEDS GIVEN WITHOUT DIFFICULTY. PT CURRENTLY RESTING WITH EYES CLOSED. RESP EVEN AND REGULAR. SR UP X1, CALL LIGHT WITHIN REACH.
--- NOTE | 2019-08-29 00:10 | NUR ---
PT RESTING WITH EYES CLOSED. RESP EVEN AND REGULAR. CALL LIGHT WITHIN REACH.
[2019-08-29 00:30] VITALS: BP 119/46
--- NOTE | 2019-08-29 02:27 | NUR ---
PT RESTING WITH EYES CLOSED. RESP EVEN AND REGULAR. CALL LIGHT WITHIN REACH.
[2019-08-29 04:30] VITALS: BP 111/47
--- NOTE | 2019-08-29 04:38 | NUR ---
PT AWAKE; DENIES ANY DISCOMFORT. CALL LIGHT WITHIN REACH.
[2019-08-29 04:46] LABS: BASOPHILS 0 % (0-2); EOSINOPHILS 1.3 % (0-7); HEMATOCRIT 28.7 % (36.0-48.0); HEMOGLOBIN 9.3 g/dL (12-16); IMMATURE GRANULOCYTES 0.3 % (0-5); LYMPHOCYTES 14.7 % (15-50); MCH 28.6 pg (26.0-34.0); MCHC 32.4 g/dL (31.0-37.0); MCV 88.3 fL (80.0-100.0); MEAN PLATELET VOLUME 8.9 fL (7.4-10.4); MONOCYTES 15.1 % (2-11); NEUTROPHILS 68.6 % (40-80); PLATELET COUNT 127 10x3/uL (130-400); RBC 3.25 10x6/uL (4.00-5.40); RDW 21.1 % (11.5-14.5); WBC 7.2 10x3/uL (4.8-10.8)
[2019-08-29 05:00] LABS: ANION GAP 8.2 mmol/L (8-16); CALCIUM 8.3 mg/dL (8.5-10.1); CARBON DIOXIDE 28.6 mmol/L (21.0-32.0); CREATININE - SERUM 1.6 mg/dL (0.6-1.3); POTASSIUM - SERUM 3.8 mmol/L (3.5-5.1)
--- NOTE | 2019-08-29 06:08 | NUR ---
VSS THROUGHOUT NIGHT. SR PER CM. PT RESTED WELL DURING SHIFT. NEEDS MET; WILL CONTINUE TO MONITOR.
--- NOTE | 2019-08-29 07:00 | NUR ---
RECEIVED REPORT. ASSUMED CARE OF PATIENT. PATIENT SITTING UP IN BED, AWAKE. CALL LIGHT WITHIN REACH. BEDSIDE SHIFT REPORT COMPLETED, WHITE BOARD UPDATED. SB ON TELEMTRY, RATE 58. NO DISTRESS.
[2019-08-29 10:05] LABS: BASOPHILS 0.2 % (0-2); EOSINOPHILS 1.9 % (0-7); HEMATOCRIT 28.8 % (36.0-48.0); HEMOGLOBIN 9.5 g/dL (12-16); IMMATURE GRANULOCYTES 0.3 % (0-5); LYMPHOCYTES 13.3 % (15-50); MCH 28.7 pg (26.0-34.0); MEAN PLATELET VOLUME 10.2 fL (7.4-10.4); MONOCYTES 16.7 % (2-11); NEUTROPHILS 67.6 % (40-80); PLATELET COUNT 104 10x3/uL (130-400); RBC 3.31 10x6/uL (4.00-5.40); WBC 6.5 10x3/uL (4.8-10.8)
[2019-08-29 10:11] LABS: CALCIUM 8.4 mg/dL (8.5-10.1); CARBON DIOXIDE 32.8 mmol/L (21.0-32.0); CREATININE - SERUM 1.6 mg/dL (0.6-1.3); MAGNESIUM - SERUM 1.8 mg/dL (1.8-2.4); POTASSIUM - SERUM 3.8 mmol/L (3.5-5.1)
[2019-08-29 10:14] VITALS: BP 121/53
--- NOTE | 2019-08-29 12:42 | NUR ---
PATIENTS KATHERINEYUNG YOUSIF CALLED TO CHECK ON HER, BREIF REPORT PROVIDED. STATED SHE WOULD CALL BACK ON SATURDAY OR SATURDAY TO SEE IF SHE IS STILL DOING OKAY.
[2019-08-29 14:22] VITALS: BP 126/53
--- NOTE | 2019-08-29 14:30 | NUR ---
FRESH ICE WATER PROVIDED. RESTING IN BED WITH EYES OPEN, NO DISTRESS. DR. MELGOZA HERE FOR ROUNDS.
--- NOTE | 2019-08-29 16:52 | NUR ---
RESTING IN BED, NO DISTRESS. PM MEAL BEING CONSUMED AT THIS TIME. CALL LIGHT WITHIN REACH. FRESH ICE WATER PROVIDED.
--- NOTE | 2019-08-29 19:25 | NUR ---
RECEIVED BEDSIDE SHIFT REPORT. UP IN BED WITH EYES OPEN AND TV ON. ALERT AND ORIETNED X4. UP AD RASTA TO B/R. IV TO LT WRIST SL. NOT WEARING 02 AT THIS TIME. TELEMETRY IN PLACE. DENIES ANY NEEDS AT THIS TIME.
[2019-08-29 20:00] VITALS: BP 115/43
[2019-08-30 00:30] VITALS: BP 122/44
[2019-08-30 04:30] VITALS: BP 102/39
[2019-08-30 05:32] LABS: HEMATOCRIT 28.4 % (36.0-48.0); HEMOGLOBIN 9.4 g/dL (12-16); LYMPHOCYTES 12.4 % (15-50); MCH 29.3 pg (26.0-34.0); MCHC 33.1 g/dL (31.0-37.0); MCV 88.5 fL (80.0-100.0); MEAN PLATELET VOLUME 9.5 fL (7.4-10.4); NEUTROPHILS 67.8 % (40-80); RBC 3.21 10x6/uL (4.00-5.40); RDW 23.3 % (11.5-14.5); WBC 7.1 10x3/uL (4.8-10.8)
[2019-08-30 05:33] LABS: PLATELET COUNT 126 10x3/uL (130-400)
[2019-08-30 05:47] LABS: ANION GAP 7.1 mmol/L (8-16); CALCIUM 8.6 mg/dL (8.5-10.1); CARBON DIOXIDE 28.5 mmol/L (21.0-32.0); CREATININE - SERUM 1.7 mg/dL (0.6-1.3); MAGNESIUM - SERUM 1.9 mg/dL (1.8-2.4); POTASSIUM - SERUM 3.6 mmol/L (3.5-5.1)
--- NOTE | 2019-08-30 07:00 | NUR ---
RECEIVED REPORT. ASSUMED CARE OF PATIENT. PATIENT RESTING IN BED WITH EYES CLOSED. SR, RATE OF 61 ON TELEMETRY. BEDSIDE SHIFT REPORT COMPLETE, WHITE BOARD UPDATED. RESP EVEN AND UNLABORED. NO DISTRESS.
[2019-08-30 08:22] VITALS: BP 128/77
--- NOTE | 2019-08-30 08:57 | NUR ---
OOB AMBULATING IN ROOM. NO DISTRESS.
[2019-08-30 12:17] VITALS: BP 114/53
--- NOTE | 2019-08-30 15:33 | NUR ---
RESTING IN BED WITH EYES CLOSED. NO DISTRESS.
[2019-08-30 15:45] VITALS: BP 115/67
--- NOTE | 2019-08-30 17:00 | NUR ---
CONSUMING PM MEAL, ATTENTION TOWARD TELEVISION. CALL LIGHT WITHIN REACH. NO DISTRESS.
--- NOTE | 2019-08-30 20:14 | NUR ---
RECIEVED BEDSIDE SHIFT REPORT. ALERT AND ORIENTED X4 AT THIS TIME. UP AD RASTA. IV TO LT WRIST SL. DENIES ANY NEEDS AT THIS TIME.
[2019-08-30 20:30] VITALS: BP 98/36
[2019-08-31 00:30] VITALS: BP 120/49
[2019-08-31 04:30] VITALS: BP 116/49
[2019-08-31 09:15] LABS: BASOPHILS 0.1 % (0-2); EOSINOPHILS 1.6 % (0-7); HEMATOCRIT 28.8 % (36.0-48.0); HEMOGLOBIN 9.6 g/dL (12-16); IMMATURE GRANULOCYTES 0.4 % (0-5); LYMPHOCYTES 14.4 % (15-50); MCH 28.7 pg (26.0-34.0); MCHC 33.3 g/dL (31.0-37.0); MEAN PLATELET VOLUME 9.2 fL (7.4-10.4); MONOCYTES 18.6 % (2-11); NEUTROPHILS 64.9 % (40-80); PLATELET COUNT 115 10x3/uL (130-400); RBC 3.35 10x6/uL (4.00-5.40); RDW 21.3 % (11.5-14.5); WBC 6.8 10x3/uL (4.8-10.8)
[2019-08-31 09:22] LABS: INR 1.41 (0.85-1.17); PROTIME 17.1 SECONDS (11.6-15.0)
[2019-08-31 09:32] LABS: ALBUMIN 2.1 g/dL (3.4-5.0); BILIRUBIN - DIRECT 1.14 mg/dL (0.00-0.30); BILIRUBIN - INDIRECT 0.8 mg/dL (0.00-1.00); BILIRUBIN - TOTAL 1.94 mg/dL (0.2-1.3); CALCIUM 8.8 mg/dL (8.5-10.1); CARBON DIOXIDE 32.6 mmol/L (21.0-32.0); CREATININE - SERUM 1.8 mg/dL (0.6-1.3); MAGNESIUM - SERUM 1.9 mg/dL (1.8-2.4); POTASSIUM - SERUM 3.6 mmol/L (3.5-5.1); PROTEIN - SERUM 5.6 g/dL (6.4-8.2)
[2019-08-31 10:41] VITALS: BP 111/42
[2019-08-31 13:14] VITALS: BP 132/57
--- NOTE | 2019-08-31 13:18 | NUR ---
Nutrition Follow-up: Pt sleeping soundly on multiple attempts to visit; RD did not disturb. Chart reviewed. Diet: Renal/4 g Na PO intake: 25-100% Wt: 169# (08/27) Last BM: 08/29 per chart Labs noted: Na 128, Alb 2.1 Meds noted: MagOx, Lasix, KDur, Protonix, vitamin B6, vitamin D, electrolyte protocol -Encourage PO intake and honor food preferences within diet restrictions. -Monitor wt; noted daily wts ordered. -RD following.
[2019-08-31 17:53] VITALS: BP 130/70
--- NOTE | 2019-08-31 18:37 | NUR ---
I have reviewed this patient and I concur with the Shift Assessment completed by the Licensed Practical Nurse today this shift.
--- NOTE | 2019-08-31 19:00 | NUR ---
REPORT RECEIVED, WILL CONTINUE POC. PATIENT IS AAOX4, LYING IN SEMI-FOWLERS POSITION. NO S/S OF DISTRESS OBSERVED, RR EVEN AND UNLABORED ON ROOM AIR. PATIENT DENIES NEEDS AT THIS TIME. CL IN REACH, BED LOCKED AND LOWERED. WILL CTM.
[2019-08-31 20:22] VITALS: BP 110/40
[2019-09-01] VITALS: BP 96/61
--- NOTE | 2019-09-01 03:28 | NUR ---
I have reviewed this patient and I concur with the Shift Assessment completed by the Licensed Practical Nurse today this shift.
[2019-09-01 04:00] VITALS: BP 118/56
--- NOTE | 2019-09-01 07:20 | NUR ---
RECIEVE REPORT. ALERT AND ORIENTED X4. SITTING UP ON SIDE OF BED. SINUS SOLO ON TELEMETRY. DENIES ANY NEEDS. CONTINUE PLAN OF CARE AND SAFETY PRECAUTIONS.
[2019-09-01 10:13] LABS: BASOPHILS 0 % (0-2); EOSINOPHILS 1.2 % (0-7); HEMATOCRIT 29.7 % (36.0-48.0); IMMATURE GRANULOCYTES 0.4 % (0-5); LYMPHOCYTES 13.7 % (15-50); MCH 28.9 pg (26.0-34.0); MCHC 33.7 g/dL (31.0-37.0); MCV 85.8 fL (80.0-100.0); MEAN PLATELET VOLUME 9.7 fL (7.4-10.4); NEUTROPHILS 65.7 % (40-80); PLATELET COUNT 100 10x3/uL (130-400); RBC 3.46 10x6/uL (4.00-5.40); RDW 21.7 % (11.5-14.5); WBC 6.8 10x3/uL (4.8-10.8)
[2019-09-01 10:25] LABS: ANION GAP 8.4 mmol/L (8-16); CALCIUM 8.7 mg/dL (8.5-10.1); CARBON DIOXIDE 32.1 mmol/L (21.0-32.0); CREATININE - SERUM 1.8 mg/dL (0.6-1.3); MAGNESIUM - SERUM 1.9 mg/dL (1.8-2.4); POTASSIUM - SERUM 3.5 mmol/L (3.5-5.1)
[2019-09-01 13:32] VITALS: BP 121/56
--- NOTE | 2019-09-01 14:15 | NUR ---
ALERT AND ORIENTED X4. SITTING UP IN BED. CONSENTS FOR THORACENTESIS SIGNED ON CHART. SUPPLIES GATHERED AT BEDSIDE PER . CONTINUE PLAN OF CARE AND SAFETY PRECAUTIONS.
--- NOTE | 2019-09-01 14:30 | NUR ---
THORACENTESIS COMPLETE. LIAM, RT AT BEDSIDE.
[2019-09-01 16:34] LABS: PROTEIN - BODY FLUID 1.4 G/DL
[2019-09-01 17:09] VITALS: BP 121/49
--- NOTE | 2019-09-01 19:18 | NUR ---
REPORT RECEIVED, WILL CONTINUE POC. PATIENT IS RESTING WITH EYES CLOSED, NO S/S OF DISTRESS OBSERVED, RR EVEN AND UNLABORED ON 2L O2 VIA NC. PIV TO LT WRIST, SL. CL IN REACH, BED LOCKED AND LOWERED. WILL CTM.
[2019-09-01 20:00] VITALS: BP 137/54
[2019-09-02] VITALS: BP 97/41
[2019-09-02 04:00] VITALS: BP 106/40
[2019-09-02 07:26] LABS: ANION GAP 9.4 mmol/L (8-16); CALCIUM 8.7 mg/dL (8.5-10.1); CARBON DIOXIDE 28.8 mmol/L (21.0-32.0); CREATININE - SERUM 1.7 mg/dL (0.6-1.3); MAGNESIUM - SERUM 2.1 mg/dL (1.8-2.4)
[2019-09-02 07:39] LABS: POTASSIUM - SERUM 5.2 mmol/L (3.5-5.1)
[2019-09-02 08:32] LABS: BASOPHILS 0 % (0-2); EOSINOPHILS 0.9 % (0-7); HEMATOCRIT 31.9 % (36.0-48.0); HEMOGLOBIN 10.7 g/dL (12-16); IMMATURE GRANULOCYTES 0.4 % (0-5); MCH 28.9 pg (26.0-34.0); MCHC 33.5 g/dL (31.0-37.0); MCV 86.2 fL (80.0-100.0); MEAN PLATELET VOLUME 9.7 fL (7.4-10.4); MONOCYTES 19.4 % (2-11); NEUTROPHILS 69.3 % (40-80); PLATELET COUNT 109 10x3/uL (130-400); RDW 21.5 % (11.5-14.5)
[2019-09-02 08:45] LABS: WBC 9.8 10x3/uL (4.8-10.8)
[2019-09-02 09:00] VITALS: BP 116/43
[2019-09-02 17:08] VITALS: BP 108/49
--- NOTE | 2019-09-02 19:21 | NUR ---
REPORT RECEIVED, WILL CONTINUE POC. PATIENT IS AAOX4, SITTING UP IN BED. NO S/S OF DISTRESS OBSERVED, RR EVEN AND UNLABORED ON 2L O2 VIA NC. PATIENT DENIES NEEDS AT THIS TIME. CL IN REACH, BED LOCKED AND LOWERED. WILL CTM.
[2019-09-02 20:00] VITALS: BP 112/45
--- NOTE | 2019-09-03 03:13 | NUR ---
I have reviewed this patient and I concur with the Shift Assessment completed by the Licensed Practical Nurse today this shift.
[2019-09-03 06:06] LABS: HEMATOCRIT 30.2 % (36.0-48.0); MCH 28.5 pg (26.0-34.0); MCHC 33.1 g/dL (31.0-37.0); MEAN PLATELET VOLUME 9.8 fL (7.4-10.4); PLATELET COUNT 113 10x3/uL (130-400); RBC 3.51 10x6/uL (4.00-5.40); WBC 8.4 10x3/uL (4.8-10.8)
[2019-09-03 06:24] LABS: CALCIUM 8.9 mg/dL (8.5-10.1); CARBON DIOXIDE 29.7 mmol/L (21.0-32.0); CREATININE - SERUM 1.9 mg/dL (0.6-1.3); MAGNESIUM - SERUM 2.1 mg/dL (1.8-2.4); POTASSIUM - SERUM 3.7 mmol/L (3.5-5.1)
--- NOTE | 2019-09-03 07:30 | NUR ---
PT SITTING UP ON SIDE OF BED. AMBULATED TO BATHROOM WITH NO ISSUES OR NEED FOR ASSISTANCE. CALL LIGHT WTIHIN REACH. RR EVEN AND UNLABORED ON 2L NC. BED IN LOWEST POSITION. WILL CONTINUE TO MONITOR.
[2019-09-03 09:19] LABS: BILIRUBIN - DIRECT 1.18 mg/dL (0.00-0.30); BILIRUBIN - INDIRECT 0.66 mg/dL (0.00-1.00); BILIRUBIN - TOTAL 1.84 mg/dL (0.2-1.3); PROTEIN - SERUM 5.3 g/dL (6.4-8.2)
[2019-09-03 09:37] VITALS: BP 102/42
--- NOTE | 2019-09-03 10:49 | NUR ---
PATIENT ON RA @ 88% PLACED ON 2L/NC NOW AT 95%
[2019-09-03 11:00] LABS: LYMPHOCYTES 15 % (15-50); MONOCYTES 12 % (2-11); NEUTROPHILS 71 % (40-80); PLATELET ESTIMATE DECREASED
--- NOTE | 2019-09-03 11:27 | MORECARE ---
CASE MANAGEMENT DISCHARGE SUMMARY PATIENT: JOYCE BULLARD UNIT: [id number] ADM DATE: 08/23/19 AGE: 69 : 48 SEX: F ROOM/BED: D.2106 AUTHOR: DALLAS,DOC PHYSICIAN: REFERRING PHYSICIAN: STANTON VERONICA MD DATE OF SERVICE: 09/03/19 Discharge Plan Patient Name: JOYCE BULLARD Facility: [facility]:[place] : 1950 Planned Disposition: Home Anticipated Discharge Date: Discharge Date: Expected LOS: Initial Reviewer: [id number] Initial Review Date: 08/27/2019 Generated: 09/03/19 12:26 pm Comments DCP- Discharge Planning Updated by [id number]: Jade Rueda on 08/27/19 4:[address] Patient Name: JOYCE BULLARD Admission Status: ER Accout number: [id number] Admission Date: 08-23-2019 : 1950 Admission Diagnosis:SHORTNESS OF BREATH Attending: STANTON VERONICA Current LOS: 4 Anticipated DC Date: Planned Disposition: Home Primary Insurance: MEDICARE A & B Discharge Planning Comments: CM met with patient to complete initial dc planning assessment. CM educated patient on the CM role and verbal consent given by patient to complete assessment. Patient lives at home alone. At discharge patient plans to return and feels this is a safe discharge. CM discussed availability of home health, rehab services, and medical equipment. Patient denied known discharge needs at this time. She gets her nebulizer supplies from [employer], so DONA for [facility] signed if oxygen is needed. She will need a qualifying walk test for home oxygen needs prior to discharge. CM will continue to follow and will assist as needed with dc plans/needs. Clipper And Turner: Jade Rueda DCPIA - Discharge Planning Initial Assessment Updated by [email or web address]: Jade Rueda on 08/27/19 5:03 pm * Is the patient Alert and Oriented? Yes * How many steps to enter\exit or inside your home? 2/0 * PCP Dr. Sanford * Pharmacy [facility] [place] [facility] * Preadmission Environment Home Alone * ADLs Partial Dependent * Partial ADLs (Assistance needed) Ambulation * Equipment Cane Elevated Toliet Seat Nebulizer Walker * List name and contact numbers for known caregivers / representatives who currently or will assist patient after discharge: Monica Osuna - harrison - [phone] Juan C Dwyer - [phone] * Verbal permission to speak to the caregivers and representatives has been obtained from the patient. Yes * Community resources currently utilized None * Additional services required to return to the preadmission environment? No * Can the patient safely return to the preadmission environment? Yes * Has this patient been hospitalized within the prior 30 days at any hospital? No External Providers External Provider: [facility] Next Contact Date: Service Request Date: Service Type: Resolution: Reviewer: Comments: Coverage Notice Reviewer: [id number] Makenzie Rueda Notice Issued Date-Time: 08/27/2019 17:05 Notice Type: Patient Choice Letter Notice Delivered To: Patient Relationship to Patient: Self Traffic Enumerator Name: Delivery Method: HAND - Hand Delivered Inna Days: Prior Verbal Notification: Recipient Understood Notice: Yes Recipient Signature: Yes Med Rec Note Co-signed by Attending: Coverage Notice Comment: [facility] DP export: 08/28/19 7:50 a Patient Name: JOYCE BULLARD Page 30126 at 1127 All edits/amendments must be made on the electronic document DICTATION DATE: 09/03/191125 RENTAL SALES REPRESENTATIVE: JIMMY 09/03/196 RPT#: [id number] DC DATE: STATUS: ADM IN [facility] [address] [place] [address] END OF REPORT
--- NOTE | 2019-09-03 11:34 | MORECARE ---
CASE MANAGEMENT DISCHARGE SUMMARY PATIENT: JOYCE BULLARD UNIT: [id number] ADM DATE: 08/23/19 AGE: 69 : 48 SEX: F ROOM/BED: D.2102 AUTHOR: DALLAS,DOC PHYSICIAN: REFERRING PHYSICIAN: STANTON VERONICA MD DATE OF SERVICE: 09/03/19 Discharge Plan Patient Name: JOYCE BULLARD Facility: [facility]:[place] : 1950 Planned Disposition: Home Anticipated Discharge Date: Discharge Date: Expected LOS: Initial Reviewer: [id number] Initial Review Date: 08/27/2019 Generated: 09/03/19 12:33 pm Comments DCP- Discharge Planning Updated by [email or web address]: Jade Rueda on 09/03/19 10:[address] Oxygen saturation is 88% on room air. I have called Shellie at [facility] and informed her of discharge today and need for portable to be brought to the hospital. Clinical faxed to [employer] [facility]. Patient is sleeping and not awakened for IMM at this time. CM will continue to follow and assist with discharge planning/needs. DCP- Discharge Planning Updated by [id number]: Jade Rueda on 08/27/19 4:[address] Patient Name: JOYCE BULLARD Admission Status: ER Accout number: [id number] Admission Date: 08-23-2019 : 1950 Admission Diagnosis:SHORTNESS OF BREATH Attending: STANTON VERONICA Current LOS: 4 Anticipated DC Date: Planned Disposition: Home Primary Insurance: MEDICARE A & B Discharge Planning Comments: CM met with patient to complete initial dc planning assessment. CM educated patient on the CM role and verbal consent given by patient to complete assessment. Patient lives at home alone. At discharge patient plans to return and feels this is a safe discharge. CM discussed availability of home health, rehab services, and medical equipment. Patient denied known discharge needs at this time. She gets her nebulizer supplies from [employer], so GORDY for [facility] signed if oxygen is needed. She will need a qualifying walk test for home oxygen needs prior to discharge. CM will continue to follow and will assist as needed with dc plans/needs. Superintendent Radio Communications: Jade Rueda DCPIA - Discharge Planning Initial Assessment Updated by [email or web address]: Jade Rueda on 08/27/19 5:03 pm * Is the patient Alert and Oriented? Yes * How many steps to enter\exit or inside your home? 2/0 * PCP Dr. Sanford * Pharmacy [facility] * Preadmission Environment Home Alone * ADLs Partial Dependent * Partial ADLs (Assistance needed) Ambulation * Equipment Cane Elevated [place] Seat Nebulizer Walker * List name and contact numbers for known caregivers / representatives who currently or will assist patient after discharge: Monica Osuna [facility] - [phone] Juan C Dwyer [phone] * Verbal permission to speak to the caregivers and representatives has been obtained from the patient. Yes * Community resources currently utilized None * Additional services required to return to the preadmission environment? No * Can the patient safely return to the preadmission environment? Yes * Has this patient been hospitalized within the prior 30 days at any hospital? No Coverage Notice Reviewer: [id number] - Jade Rueda Notice Issued Date-Time: 08/27/2019 17:05 Notice Type: Patient Choice Letter Notice Delivered To: Patient Relationship to Patient: Self Chief Controller Tower Name: Delivery Method: HAND - Hand Delivered Inna Days: Prior Verbal Notification: Recipient Understood Notice: Yes Recipient Signature: Yes Med Rec Note Co-signed by Attending: Coverage Notice Comment: gordy for [facility] Last DP export: 09/03/19 10:27 am Patient Name: JOYCE BULLARD Page [phone] at 1134 All edits/amendments must be made on the electronic document DICTATION DATE: 09/03/19 1134 LOGISTICS PLANNER: JIMMY 09/03/19 1134 RPT#: [id number] DC DATE: STATUS: ADM IN [facility] [address] [place] [address] END OF REPORT
[2019-09-03 12:00] VITALS: BP 112/44
[2019-09-03 14:00] VITALS: BP 100/34
--- NOTE | 2019-09-03 19:00 | NUR ---
REPORT RECEIVED, WILL CONTINUE POC. PATIENT IS AAOX4, SITTING UP IN BED. NO S/S OF DISTRESS OBSERVED, RR EVEN AND UNLABORED ON 2L O2 VIA NC. PIV TO LT WRIST, SL. PATIENT DENIES NEEDS AT THIS TIME. CL IN REACH, BED LOCKED AND LOWERED. WILL CTM.
[2019-09-03 20:00] VITALS: BP 108/49
[2019-09-04 04:00] VITALS: BP 109/43
--- NOTE | 2019-09-04 07:35 | NUR ---
ASSESSMENT DONE. DENIES NEEDS
[2019-09-04 09:32] VITALS: BP 128/54
--- NOTE | 2019-09-04 11:28 | MORECARE ---
CASE MANAGEMENT DISCHARGE SUMMARY PATIENT: JOYCE BULLARD UNIT: [id number] ADM DATE: 08/23/19 AGE: 69 : 48 SEX: F ROOM/BED: D.9211 AUTHOR: DALLAS,DOC PHYSICIAN: REFERRING PHYSICIAN: STANTON VERONICA MD DATE OF SERVICE: 09/04/19 Discharge Plan Patient Name: JOYCE BULLARD Facility: [facility]:[place] : 1950 Planned Disposition: Home Anticipated Discharge Date: Discharge Date: Expected LOS: Initial Reviewer: [email or web address] Initial Review Date: 08/27/2019 Generated: 09/04/19 12:28 pm Comments DCP- Discharge Planning Updated by [email or web address]: Jade Rueda on 09/04/19 10:[address] Patient's sister, Yani Dwyer, called me concerned that her sister was being discharged home alone. States she is very weak and unable to care for herself. I have already spoken to Sharona Moran concerning this and a PT consult has been ordered. I spoke with the patient and she is in agreement to inpatient rehab at [facility] after her procedure on Saturday. Patient states she almost fell just trying to go to the bathroom. I instructed her to call a nurse before getting out of bed. I spoke with Shellie, at [facility] and she will need another walk test prior to going home if she is not discharged on Saturday. CM will continue to follow and assist with discharge planning/needs. Yani Dwyer - sister - [phone] DCP- Discharge Planning Updated by [email or web address]: Jade Rueda on 09/03/19 10:[address] Oxygen saturation is 88% on room air. I have called Shellie at [facility] and informed her of discharge today and need for portable to be brought to the hospital. Clinical faxed to [facility]. Patient is sleeping and not awakened for IMM at this time. CM will continue to follow and assist with discharge planning/needs. DCP- Discharge Planning Updated by [email or web address]: Jade Rueda on 08/27/19 4:[address] Patient Name: JOYCE BULLARD Admission Status: ER Accout number: [id number] Admission Date: 08-23-2019 : 1950 Admission Diagnosis:SHORTNESS OF BREATH Attending: STANTON VERONICA Current LOS: 4 Anticipated DC Date: Planned Disposition: Home Primary Insurance: MEDICARE A & B Discharge Planning Comments: CM met with patient to complete initial dc planning assessment. CM educated patient on the CM role and verbal consent given by patient to complete assessment. Patient lives at home alone. At discharge patient plans to return and feels this is a safe discharge. CM discussed availability of home health, rehab services, and medical equipment. Patient denied known discharge needs at this time. She gets her nebulizer supplies from [employer], so GORDY for [facility] signed if oxygen is needed. She will need a qualifying walk test for home oxygen needs prior to discharge. CM will continue to follow and will assist as needed with dc plans/needs. Logger All Round: Jade Rueda DCPIA - Discharge Planning Initial Assessment Updated by [email or web address]: Jade Rueda on 08/27/19 5:03 pm * Is the patient Alert and Oriented? Yes * How many steps to enter\exit or inside your home? 2/0 * PCP Dr. Sanford * Pharmacy [facility] * Preadmission Environment Home Alone * ADLs Partial Dependent * Partial ADLs (Assistance needed) Ambulation * Equipment Cane Elevated Tol[place] Seat Nebulizer Walker * List name and contact numbers for known caregivers / representatives who currently or will assist patient after discharge: Monica Enrrique harrison [phone] Juan C Dwyer [phone] * Verbal permission to speak to the caregivers and representatives has been obtained from the patient. Yes * Community resources currently utilized None * Additional services required to return to the preadmission environment? No * Can the patient safely return to the preadmission environment? Yes * Has this patient been hospitalized within the prior 30 days at any hospital? No Coverage Notice Reviewer: [id number] - Jade Rueda Notice Issued Date-Time: 08/27/2019 17:05 Notice Type: Patient Choice Letter Notice Delivered To: Patient Relationship to Patient: Self Ring Conductor Name: Delivery Method: HAND - Hand Delivered Inna Days: Prior Verbal Notification: Recipient Understood Notice: Yes Recipient Signature: Yes Med Rec Note Co-signed by Attending: Coverage Notice Comment: gordy for [facility] Last DP export: 09/03/19 10:34 am Patient Name: JOYCE BULLARD Page [phone] at 1128 All edits/amendments must be made on the electronic document DICTATION DATE: 09/04/191127 SCHOOL JANITOR: JIMMY 09/04/191127 RPT#: [id number] DC DATE: STATUS: ADM IN [facility] [address] [place] [address] END OF REPORT
[2019-09-04 12:00] VITALS: BP 122/53
--- NOTE | 2019-09-04 12:39 | NUR ---
Nutrition Follow-up: Poor PO intake. States "I don't have any appetite at all". Diet: Renal, 4 g Na Wt: 171# (09/03); 169# (08/27); 166.4# (08/24) Last BM: 09/03 Labs reviewed Meds noted: Colace, MagOx, vitamin D, KDur, Lasix, vitamin B6, Protonix, electrolyte protocol -MD may consider liberalizing to cardiac diet. -Encourage PO intake and honor food preferences within diet restrictions. -Pt may benefit from appetite stimulant. -Monitor wt; noted daily wts ordered. -RD following.
[2019-09-04 13:20] LABS: HEMOGLOBIN 10.6 g/dL (12-16); MCH 29.9 pg (26.0-34.0); MCHC 34.2 g/dL (31.0-37.0); MCV 87.3 fL (80.0-100.0); MEAN PLATELET VOLUME 9.1 fL (7.4-10.4); PLATELET COUNT 106 10x3/uL (130-400); RBC 3.55 10x6/uL (4.00-5.40); RDW 22.6 % (11.5-14.5); WBC 9.3 10x3/uL (4.8-10.8)
[2019-09-04 13:45] LABS: EOSINOPHILS 1 % (0-7); LYMPHOCYTES 7 % (15-50); NEUTROPHILS 92 % (40-80); PLATELET ESTIMATE NORMAL
[2019-09-04 13:46] LABS: ANION GAP 9.5 mmol/L (8-16); BILIRUBIN - TOTAL 2.14 mg/dL (0.2-1.3); CARBON DIOXIDE 27.9 mmol/L (21.0-32.0); MAGNESIUM - SERUM 2.2 mg/dL (1.8-2.4); PROTEIN - SERUM 5.3 g/dL (6.4-8.2); TARGET CELLS OCC
[2019-09-04 13:51] LABS: POTASSIUM - SERUM 4.4 mmol/L (3.5-5.1)
--- NOTE | 2019-09-04 14:29 | NUR ---
Rehab Prescreening Consult recieved and spoke with the AMANDA Rueda RN. She is a good candidate for the ARU when medically stable. She is scheduled for a pluerx cath on Saturday per IR. Will plan to admit on if the physician agrees. Nilsa Kahn RN Clinical Liaison, Rehab
--- NOTE | 2019-09-04 15:44 | NUR ---
I have reviewed this patient and I concur with the Shift Assessment completed by the Licensed Practical Nurse today this shift.
--- NOTE | 2019-09-04 18:55 | NUR ---
BEDSIDE REPORT RECEIVED, PT CARE ASSUMED. PT SITTING UP IN BED WITH EYES CLOSED, RR EVEN AND NONLABORED, NO S/S OF DISTRESS, AROUSES EASILY TO VOICE. DENIES ANY NEEDS AT THIS TIME. BED IN LOWEST, SRX2, CALL LIGHT WITHIN REACH. WILL CTM.
[2019-09-04 20:30] VITALS: BP 88/33
[2019-09-05 00:30] VITALS: BP 93/39
[2019-09-05 04:14] LABS: BASOPHILS 0.1 % (0-2); EOSINOPHILS 0.8 % (0-7); HEMATOCRIT 30.5 % (36.0-48.0); HEMOGLOBIN 10.9 g/dL (12-16); IMMATURE GRANULOCYTES 0.3 % (0-5); LYMPHOCYTES 7.6 % (15-50); MCH 30.8 pg (26.0-34.0); MCHC 35.7 g/dL (31.0-37.0); MCV 86.2 fL (80.0-100.0); MEAN PLATELET VOLUME 9.6 fL (7.4-10.4); MONOCYTES 26.3 % (2-11); NEUTROPHILS 64.9 % (40-80); RBC 3.54 10x6/uL (4.00-5.40); RDW 22.3 % (11.5-14.5); WBC 8.6 10x3/uL (4.8-10.8)
[2019-09-05 04:15] LABS: PLATELET COUNT 52 10x3/uL (130-400)
[2019-09-05 04:30] VITALS: BP 105/45
[2019-09-05 05:02] LABS: ALBUMIN 1.9 g/dL (3.4-5.0); ANION GAP 9.1 mmol/L (8-16); BILIRUBIN - TOTAL 2.02 mg/dL (0.2-1.3); CALCIUM 8.7 mg/dL (8.5-10.1); CARBON DIOXIDE 28.7 mmol/L (21.0-32.0); CREATININE - SERUM 2.3 mg/dL (0.6-1.3); POTASSIUM - SERUM 4.8 mmol/L (3.5-5.1); PROTEIN - SERUM 5.3 g/dL (6.4-8.2)
--- NOTE | 2019-09-05 07:00 | NUR ---
RECEIVED REPORT. ASSUMED CARE OF PATIENT. PATIENT RESTING IN BED WITH EYES OPEN. COMPLETING NEBULIZER TX AT THIS TIME. PATIENT STATES SHE FEELS "CRAPPY" THIS MORNING. CALL LIGHT CORRIE DO. WHITE BOARD UPDATED, BEDSIDE SHIFT REPORT COMPLETE. PATIENT RATE IS 58, SB ON TELEMETRY. NO DISTRESS. DENIES ANY NEEDS AT THIS TIME.
[2019-09-05 09:44] VITALS: BP 136/87
[2019-09-05 10:25] LABS: ANION GAP 8.4 mmol/L (8-16); CALCIUM 9.1 mg/dL (8.5-10.1); CARBON DIOXIDE 28.3 mmol/L (21.0-32.0); CREATININE - SERUM 2.5 mg/dL (0.6-1.3); MAGNESIUM - SERUM 2.4 mg/dL (1.8-2.4); POTASSIUM - SERUM 4.7 mmol/L (3.5-5.1)
[2019-09-05 12:40] VITALS: BP 107/45
--- NOTE | 2019-09-05 15:19 | NUR ---
ASSISTED PATIENT OOB TO BEDSIDE COMMODE. NO DISTRESS.
--- NOTE | 2019-09-05 15:29 | NUR ---
ASSISTED PATIENT BACK TO BED. BED ALARM PATENT.
[2019-09-05 17:15] VITALS: BP 129/50
--- NOTE | 2019-09-05 17:30 | NUR ---
ASSISTED TO AND FROM BEDSIDE COMMODE. CALL LIGHT WITHIN REACH. NO DISTRESS. BED ALARM PATENT. NO DISTRESS.
[2019-09-05 20:30] VITALS: BP 100/42
--- NOTE | 2019-09-05 20:43 | NUR ---
THIS NURSE ENTERED THE ROOM AND THOUGHT I HAD PULLED UP THE MAR. SCANNED THE ARM BAND AND SCANNED EACH MEDICATION. SUBMITTED AND AT THAT TIME REALIZED THAT RT WAS SIGNED IN. WENT INTO RT DOCUMENTATION AND HAD HER PRITI ALL MEDS NOT GIVEN AND SEE NN UNDER COMMENTS. THIS NURSE ATTEMPTED TO GO BACK IN AND PRITI GIVEN BY HER. HOWEVER THE AILYN KEPT SAYING NON SCHEDULED. DELETED THE NON SCHEDULED AND RETURN TO MAR WHICH STILL SHOWS ALL MEDS GIVEN . THIS NURSE ADMINISTERED ALL PM MEDICATIONS.
--- NOTE | 2019-09-05 21:11 | NUR ---
RECEIVED BEDSIDEE SHIFT REPORT. UP IN BED WITH EYES CLOSED. EASILY AROUSES WITH VERBAL STIMULI. ALERT AND ORIENTED X4. UP WITH ASSIST TO BEDSIDE COMMODE. DENIED ANY NEEDS. IV TO LT WRIST SL. O2@ 2 LITERS PER N/C. BED ALARM IN PLACE.
[2019-09-06 00:30] VITALS: BP 97/40
[2019-09-06 04:34] VITALS: BP 101/45
[2019-09-06 04:58] LABS: ALBUMIN 1.8 g/dL (3.4-5.0); ANION GAP 9.6 mmol/L (8-16); BILIRUBIN - TOTAL 1.92 mg/dL (0.2-1.3); CARBON DIOXIDE 24.7 mmol/L (21.0-32.0); CREATININE - SERUM 2.6 mg/dL (0.6-1.3); POTASSIUM - SERUM 5.3 mmol/L (3.5-5.1); PROTEIN - SERUM 5.5 g/dL (6.4-8.2)
--- NOTE | 2019-09-06 07:20 | NUR ---
RECIEVE REPORT. RESTING IN BED WITH EYES CLOSED. NO SIGNS OF DISTRESS. CONTINUE PLAN OF CARE AND SAFETY PRECAUTIONS.
[2019-09-06 08:42] VITALS: BP 101/33
[2019-09-06 09:22] LABS: BASOPHILS 0.1 % (0-2); EOSINOPHILS 1.8 % (0-7); HEMATOCRIT 32.9 % (36.0-48.0); HEMOGLOBIN 10.9 g/dL (12-16); IMMATURE GRANULOCYTES 0.3 % (0-5); LYMPHOCYTES 19.1 % (15-50); MCH 29.5 pg (26.0-34.0); MCHC 33.1 g/dL (31.0-37.0); MONOCYTES 11.9 % (2-11); NEUTROPHILS 66.8 % (40-80); RBC 3.69 10x6/uL (4.00-5.40); RDW 23.4 % (11.5-14.5); WBC 10.6 10x3/uL (4.8-10.8)
[2019-09-06 09:26] LABS: MCV 89.2 fL (80.0-100.0); PLATELET COUNT 101 10x3/uL (130-400)
[2019-09-06 12:22] VITALS: Ht 170.2 cm; Wt 86.1 kg
[2019-09-06 13:55] VITALS: BP 96/36
--- NOTE | 2019-09-06 15:15 | NUR ---
ALERT AND ORIENTED X4. SITTING UP IN BED. CONSENTS FOR PLUEREX PLACEMENT SIGNED ON CHART. STILL UNABLE TO URINATE. PINEDA PLACEMENT 16FR SECURED TO INNER RT THIGH DRAINING BY GRAVITY. 800 MLs IMMEDIATELY DRAIN OUT. URINE CONCENTRATED. URINE CULTURE COLLECTED AND TAKEN TO LAB. CONTINUE PLAN OF CARE AND SAFETY PRECAUTIONS.
[2019-09-06 15:44] LABS: BILIRUBIN NEGATIVE (NEGATIVE); GLUCOSE NEGATIVE (NEGATIVE); KETONE NEGATIVE (NEGATIVE); NITRITE NEGATIVE (NEGATIVE); SPECIFIC GRAVITY 1.015 (1.005-1.020); UROBILINOGEN 4 mg/dL (NORMAL)
[2019-09-06 16:16] VITALS: BP 103/43
--- NOTE | 2019-09-06 19:00 | NUR ---
BEDSIDE REPORT RECEIVED, PT CARE ASSUMED. PT SITTING UP IN BED, RECEIVING RESPIRATORY TX, AAOX4. INTRODUCED SELF AND WROTE NAME ON BOARD. DENIES ANY NEEDS AT THIS TIME. BED IN LOWEST, SRX2, CALL LIGHT WITHIN REACH. WILL CTM.
[2019-09-06 20:30] VITALS: BP 99/48
[2019-09-07 00:30] VITALS: BP 101/44
[2019-09-07 04:30] VITALS: BP 98/47
--- NOTE | 2019-09-07 07:20 | NUR ---
RECIEVE REPORT. RESTING IN BED WITH EYES CLOSED. RESPIRATIONS NONLABORED. PINEDA DRAINING AT BEDSIDE BY GRAVITY. O2 @ 2L NC. NO SIGNS OF DISTRESS. CONTINUE PLAN OF CARE AND SAFETY PRECAUTIONS.
[2019-09-07 07:51] VITALS: BP 102/35
[2019-09-07 09:07] LABS: HEMATOCRIT 29.2 % (36.0-48.0); HEMOGLOBIN 9.7 g/dL (12-16); MCH 28.9 pg (26.0-34.0); MCHC 33.2 g/dL (31.0-37.0); MEAN PLATELET VOLUME 9.3 fL (7.4-10.4); PLATELET COUNT 109 10x3/uL (130-400); RBC 3.36 10x6/uL (4.00-5.40); RDW 23.1 % (11.5-14.5); WBC 8.6 10x3/uL (4.8-10.8)
[2019-09-07 09:10] LABS: MCV 86.9 fL (80.0-100.0)
[2019-09-07 09:21] LABS: ALBUMIN 1.8 g/dL (3.4-5.0); ANION GAP 10.4 mmol/L (8-16); CALCIUM 8.5 mg/dL (8.5-10.1); CARBON DIOXIDE 25.3 mmol/L (21.0-32.0); CREATININE - SERUM 2.8 mg/dL (0.6-1.3); MAGNESIUM - SERUM 2.5 mg/dL (1.8-2.4); POTASSIUM - SERUM 4.7 mmol/L (3.5-5.1)
[2019-09-07 09:23] LABS: INR 1.27 (0.85-1.17); PROTIME 15.8 SECONDS (11.6-15.0)
[2019-09-07 09:36] LABS: BILIRUBIN - TOTAL 1.85 mg/dL (0.2-1.3); PROTEIN - SERUM 4.9 g/dL (6.4-8.2)
[2019-09-07 11:02] LABS: LYMPHOCYTES 14 % (15-50); MONOCYTES 13 % (2-11); NEUTROPHILS 73 % (40-80); PLATELET ESTIMATE DECREASED
[2019-09-07 11:03] LABS: SMUDGE CELLS OCC
[2019-09-07 11:48] VITALS: BP 96/30
[2019-09-07 15:09] VITALS: BP 94/35
--- NOTE | 2019-09-07 19:43 | NUR ---
REPORT RECEIVED, WILL CONTINUE POC. PATIENT IS AAOX4, LYING IN SEMI-FOWLERS POSITION. NO S/S OF DISTRESS OBSERVED, RR EVEN AND UNLABORED ON 2L O2 VIA NC. PATIENT STATES SHE NEEDS REPOSITIONED IN BED. ASSISTED WITH REPOSITIONING. PATIENT DENIES FURTHER NEEDS AT THIS TIME. PINEDA TO RT SIDE OF BED, PATENT, DRAINING YELLOW URINE BY GRAVITY. CL IN REACH, BED LOCKED AND LOWERED. WILL CTM.
[2019-09-07 20:00] VITALS: BP 127/38
--- NOTE | 2019-09-08 02:27 | NUR ---
I have reviewed this patient and I concur with the Shift Assessment completed by the Licensed Practical Nurse today this shift.
[2019-09-08 04:00] VITALS: BP 113/35
--- NOTE | 2019-09-08 07:20 | NUR ---
RECIEVE REPORT. RESTING IN BED WITH EYES CLOSED. NO SIGNS OF DISTRESS. IV INFUSING ORDERED. SINUS RYTHM ON TELEMETRY. CONTINUE PLAN OF CARE AND SAFETY PRECAUTIONS.
[2019-09-08 09:19] LABS: BASOPHILS 0.1 % (0-2); EOSINOPHILS 1.4 % (0-7); HEMATOCRIT 30.9 % (36.0-48.0); HEMOGLOBIN 10.5 g/dL (12-16); IMMATURE GRANULOCYTES 0.2 % (0-5); LYMPHOCYTES 16.8 % (15-50); MCH 29.6 pg (26.0-34.0); MEAN PLATELET VOLUME 10.1 fL (7.4-10.4); MONOCYTES 12.4 % (2-11); NEUTROPHILS 69.1 % (40-80); PLATELET COUNT 129 10x3/uL (130-400); RBC 3.55 10x6/uL (4.00-5.40); WBC 9.1 10x3/uL (4.8-10.8)
[2019-09-08 09:33] LABS: ANION GAP 8.5 mmol/L (8-16); BILIRUBIN - TOTAL 2.19 mg/dL (0.2-1.3); CALCIUM 8.4 mg/dL (8.5-10.1); CARBON DIOXIDE 26.9 mmol/L (21.0-32.0); CREATININE - SERUM 3.1 mg/dL (0.6-1.3); POTASSIUM - SERUM 4.4 mmol/L (3.5-5.1); PROTEIN - SERUM 5.6 g/dL (6.4-8.2)
[2019-09-08 10:03] VITALS: BP 85/37
--- NOTE | 2019-09-08 12:35 | NUR ---
Nutrition Follow-up: Pt reports appetite improving somewhat. Ate ~75% of dinner last night. Unable to have Pleurx placed yesterday. Diet: Renal, 4 g Na Wt: 171# (09/03) Last BM: 09/07 Labs noted: Na 123, Ca 8.4, Alb 2.0 Meds noted: NS @ 30, MagOx, Lasix, vitamin B6, vitamin D, electrolyte protocol -MD may consider liberalizing to cardiac diet. -Encourage PO intake and honor food preferences within diet restrictions. -Need new wt; noted daily wts ordered. -RD following.
[2019-09-08 13:33] VITALS: BP 94/40
--- NOTE | 2019-09-08 13:36 | NUR ---
1330-REP FROM [facility] HERE TO AUTO SLIP COVER INSTALLER PORTABLE TANK.
--- NOTE | 2019-09-08 15:54 | MORECARE ---
CASE MANAGEMENT DISCHARGE SUMMARY PATIENT: JOYCE BULLARD UNIT: [id number] ADM DATE: 08/23/19 AGE: 69 : 48 SEX: F ROOM/BED: D.2102 AUTHOR: DALLAS,DOC PHYSICIAN: REFERRING PHYSICIAN: STANTON VERONICA MD DATE OF SERVICE: 09/08/19 Discharge Plan Patient Name: JOYCE BULLARD Facility: [facility]:[place] : 1950 Planned Disposition: Home Anticipated Discharge Date: Discharge Date: Expected LOS: Initial Reviewer: [email or web address] Initial Review Date: 08/27/2019 Generated: 09/08/19 4:53 pm DCP- Discharge Planning Updated by [email or web address]: Jade Rueda on 09/04/19 10:[address] Patient's sister, Yani Dwyer, called me concerned that her sister was being discharged home alone. States she is very weak and unable to care for herself. I have already spoken to Sharona Moran concerning this and a PT consult has been ordered. I spoke with the patient and she is in agreement to inpatient rehab at [facility] after her procedure on Saturday. Patient states she almost fell just trying to go to the bathroom. I instructed her to call a nurse before getting out of bed. I spoke with Shellie, at [facility] and she will need another walk test prior to going home if she is not discharged on Saturday. CM will continue to follow and assist with discharge planning/needs. Yani Dwyer - sister - [phone] DCP- Discharge Planning Updated by [email or web address]: Jade Rueda on 09/03/19 10:[address] Oxygen saturation is 88% on room air. I have called Shellie at [facility] and informed her of discharge today and need for portable to be brought to the hospital. Clinical faxed to [facility]. Patient is sleeping and not awakened for IMM at this time. CM will continue to follow and assist with discharge planning/needs. DCP- Discharge Planning Updated by [id number]: Jade Rueda on 08/27/19 4:[address] Patient Name: JOYCE BULLARD Admission Status: ER Accout number: [id number] Admission Date: 08-23-2019 : 1950 Admission Diagnosis:SHORTNESS OF BREATH Attending: STANTON VERONICA Current LOS: 4 Anticipated DC Date: Planned Disposition: Home Primary Insurance: MEDICARE A & B Discharge Planning Comments: CM met with patient to complete initial dc planning assessment. CM educated patient on the CM role and verbal consent given by patient to complete assessment. Patient lives at home alone. At discharge patient plans to return and feels this is a safe discharge. CM discussed availability of home health, rehab services, and medical equipment. Patient denied known discharge needs at this time. She gets her nebulizer supplies from [facility], so GORDY for [facility] signed if oxygen is needed. She will need a qualifying walk test for home oxygen needs prior to discharge. CM will continue to follow and will assist as needed with dc plans/needs. Product Planner: Jade Rueda DCPIA - Discharge Planning Initial Assessment Updated by [email or web address]: Jade Rueda on 08/27/19 5:03 pm * Is the patient Alert and Oriented? Yes * How many steps to enter\exit or inside your home? 2/0 * PCP Dr. Sanford * Pharmacy [facility] 1 * Preadmission Environment Home Alone * ADLs Partial Dependent * Partial ADLs (Assistance needed) Ambulation * Equipment Cane Elevated Tol[place] Seat Nebulizer Walker * List name and contact numbers for known caregivers / representatives who currently or will assist patient after discharge: Monica terry - [phone] Juan C Dwyer [phone] * Verbal permission to speak to the caregivers and representatives has been obtained from the patient. Yes * Community resources currently utilized None * Additional services required to return to the preadmission environment? No * Can the patient safely return to the preadmission environment? Yes * Has this patient been hospitalized within the prior 30 days at any hospital? No External Providers External Provider: [facility] Next Contact Date: Service Request Date: Service Type: Resolution: Reviewer: Comments: Coverage Notice Reviewer: [id number] - Jade Rueda Notice Issued Date-Time: 08/27/2019 17:05 Notice Type: Patient Choice Letter Notice Delivered To: Patient Relationship to Patient: Self Scientist Propagator Name: Delivery Method: HAND - Hand Delivered Inna Days: Prior Verbal Notification: Recipient Understood Notice: Yes Recipient Signature: Yes Med Rec Note Co-signed by Attending: Coverage Notice Comment: gordy for [employer] [place] Pressure Controller: [id number] Makenzie Jade Rueda Notice Issued Date-Time: 09/08/2019 15:29 Notice Type: Patient Choice Letter Notice Delivered To: Patient Relationship to Patient: Self Scientist Propagator Name: Delivery Method: HAND - Hand Delivered Inna Days: Prior Verbal Notification: Recipient Understood Notice: Yes Recipient Signature: Yes Med Rec Note Co-signed by Attending: Coverage Notice Comment: GORDY for 1) [place] [employer] 2) Valerio Pierson DP export: 09/04/19 10:28 am Patient Name: JOYCE BULLARD Page [id number] at 1554 All edits/amendments must be made on the electronic document DICTATION DATE: 09/08/191552 TURNTABLE ENGINEER: JIMMY 09/08/191552 RPT#: [id number] DC DATE: STATUS: ADM IN [facility] [address] [place] [address] END OF REPORT
[2019-09-08 17:42] LABS: CREATININE - URINE 151.5 mg/dL (30-125); POTASSIUM - URINE 49.1 MMOL/L (12.0-62.0)
[2019-09-08 18:29] VITALS: BP 99/41
--- NOTE | 2019-09-08 19:00 | NUR ---
REPORT RECEIVED, WILL CONTINUE POC. PATIENT IS AAOX4, LYING IN SEMI-FOWLERS POSITION. NO S/S OF DISTRESS OBSERVED, RR EVEN AND UNLABORED ON 2L O2 VIA NC. PATIENT DENIES NEEDS AT THIS TIME. CL IN REACH, BED LOCKED AND LOWERED. WILL CTM.
[2019-09-08 20:00] VITALS: BP 98/41
[2019-09-09] VITALS (7 sets, daily range): BP systolic 84–115; BP diastolic 23–64
--- NOTE | 2019-09-09 03:34 | NUR ---
I have reviewed this patient and I concur with the Shift Assessment completed by the Licensed Practical Nurse today this shift.
[2019-09-09 05:11] LABS: HEMATOCRIT 28.2 % (36.0-48.0); HEMOGLOBIN 9.4 g/dL (12-16); MCH 29.2 pg (26.0-34.0); MCHC 33.3 g/dL (31.0-37.0); MCV 87.6 fL (80.0-100.0); PLATELET COUNT 108 10x3/uL (130-400); RBC 3.22 10x6/uL (4.00-5.40); WBC 8.9 10x3/uL (4.8-10.8)
[2019-09-09 05:43] LABS: ALBUMIN 1.6 g/dL (3.4-5.0); ANION GAP 8.8 mmol/L (8-16); BILIRUBIN - TOTAL 1.78 mg/dL (0.2-1.3); CARBON DIOXIDE 26.5 mmol/L (21.0-32.0); CREATININE - SERUM 3.1 mg/dL (0.6-1.3); POTASSIUM - SERUM 4.3 mmol/L (3.5-5.1); PROTEIN - SERUM 4.8 g/dL (6.4-8.2); THYROID STIMULATING HORMONE 5.73 uIU/mL (0.36-3.74)
[2019-09-09 10:28] LABS: LYMPHOCYTES 13 % (15-50); MONOCYTES 16 % (2-11); NEUTROPHILS 71 % (40-80); PLATELET ESTIMATE DECREASED
[2019-09-09 10:29] LABS: ANISOCYTOSIS OCC
--- NOTE | 2019-09-09 12:33 | NUR ---
COVAMRCY SCREEENING COMPLETED PER MD ORDER. PT ASYMPTOMATIC SCREENING FOR POSSIBLE NH ADMISSION.
--- NOTE | 2019-09-09 20:38 | NUR ---
NOTIFIED BY SANKET GORDON, INFECTION CONTROL NURSE, THAT PT IS NEGATIVE FOR COVID-19.
[2019-09-10 04:00] VITALS: BP 88/42
[2019-09-10 05:40] LABS: HEMATOCRIT 27.7 % (36.0-48.0); HEMOGLOBIN 9.7 g/dL (12-16); MCH 31.2 pg (26.0-34.0); MCV 89.1 fL (80.0-100.0); MEAN PLATELET VOLUME 10.2 fL (7.4-10.4); PLATELET COUNT 105 10x3/uL (130-400); RBC 3.11 10x6/uL (4.00-5.40); RDW 24.3 % (11.5-14.5); WBC 9.6 10x3/uL (4.8-10.8)
[2019-09-10 06:03] LABS: ALBUMIN 1.7 g/dL (3.4-5.0); ANION GAP 11.6 mmol/L (8-16); BILIRUBIN - TOTAL 2.05 mg/dL (0.2-1.3); CALCIUM 8.1 mg/dL (8.5-10.1); CARBON DIOXIDE 22.7 mmol/L (21.0-32.0); POTASSIUM - SERUM 4.3 mmol/L (3.5-5.1); PROTEIN - SERUM 4.9 g/dL (6.4-8.2)
[2019-09-10 08:00] VITALS: BP 88/37
--- NOTE | 2019-09-10 08:23 | MORECARE ---
CASE MANAGEMENT DISCHARGE SUMMARY PATIENT: JOYCE BULLARD UNIT: [id number] ADM DATE: 08/23/19 AGE: 69 : 48 SEX: F ROOM/BED: D.2101 AUTHOR: DALLAS,DOC PHYSICIAN: REFERRING PHYSICIAN: STANTON VERONICA MD DATE OF SERVICE: 09/10/19 Discharge Plan Patient Name: JOYCE BULLARD Facility: [facility]:[place] : 1950 Planned Disposition: Home Anticipated Discharge Date: Discharge Date: Expected LOS: Initial Reviewer: [email or web address] Initial Review Date: 08/27/2019 Generated: 09/10/19 9:23 am Comments DCP- Discharge Planning Updated by [email or web address]: Jade Rueda on 09/10/19 7:[address] UPDATED CLINICAL AND NEGATIVE COVID FAXED TO [facility] FOR SNF PLACEMENT. CM WILL CONTINUE TO FOLLOW AND ASSIST WITH DISCHARGE PLANNING/NEEDS. DCP- Discharge Planning Updated by [email or web address]: Jade Rueda on 09/04/19 10:[address] Patient's sister, Yani Dwyer, called me concerned that her sister was being discharged home alone. States she is very weak and unable to care for herself. I have already spoken to Sharona Moran concerning this and a PT consult has been ordered. I spoke with the patient and she is in agreement to inpatient rehab at [facility] after her procedure on Saturday. Patient states she almost fell just trying to go to the bathroom. I instructed her to call a nurse before getting out of bed. I spoke with Shellie, at [facility] and she will need another walk test prior to going home if she is not discharged on Saturday. CM will continue to follow and assist with discharge planning/needs. Yani Dwyer - sister - [phone] DCP- Discharge Planning Updated by [id number]: Jade Rueda on 09/03/19 10:[address] Oxygen saturation is 88% on room air. I have called Shellie at [facility] and informed her of discharge today and need for portable to be brought to the hospital. Clinical faxed to [facility]. Patient is sleeping and not awakened for IMM at this time. CM will continue to follow and assist with discharge planning/needs. DCP- Discharge Planning Updated by [id number]: Jade Rueda on 08/27/19 4:[address] Patient Name: JOYCE BULLARD Admission Status: ER Accout number: [id number] Admission Date: 08-23-2019 : 1950 Admission Diagnosis:SHORTNESS OF BREATH Attending: STANTON VERONICA Current LOS: 4 Anticipated DC Date: Planned Disposition: Home Primary Insurance: MEDICARE A & B Discharge Planning Comments: CM met with patient to complete initial dc planning assessment. CM educated patient on the CM role and verbal consent given by patient to complete assessment. Patient lives at home alone. At discharge patient plans to return and feels this is a safe discharge. CM discussed availability of home health, rehab services, and medical equipment. Patient denied known discharge needs at this time. She gets her nebulizer supplies from [employer], so GORDY for [employer] [facility] signed if oxygen is needed. She will need a qualifying walk test for home oxygen needs prior to discharge. CM will continue to follow and will assist as needed with dc plans/needs. Professor Of Vegetable Science: Jade Rueda DCPIA - Discharge Planning Initial Assessment Updated by [id number]: Jade Rueda on 08/27/19 5:03 pm * Is the patient Alert and Oriented? Yes * How many steps to enter\exit or inside your home? 2/0 * PCP Dr. Sanford * Pharmacy [facility] [place] [facility] * Preadmission Environment Home Alone * ADLs Partial Dependent * Partial ADLs (Assistance needed) Ambulation * Equipment Cane Elevated [place] Seat Nebulizer Walker * List name and contact numbers for known caregivers / representatives who currently or will assist patient after discharge: Monica Osuna [facility] - [phone] Juan C Dwyer [phone] * Verbal permission to speak to the caregivers and representatives has been obtained from the patient. Yes * Community resources currently utilized None * Additional services required to return to the preadmission environment? No * Can the patient safely return to the preadmission environment? Yes * Has this patient been hospitalized within the prior 30 days at any hospital? No Coverage Notice Reviewer: [id number] - Jade Rueda Notice Issued Date-Time: 08/27/2019 17:05 Notice Type: Patient Choice Letter Notice Delivered To: Patient Relationship to Patient: Self Flatwork Presser Name: Delivery Method: HAND - Hand Delivered Inna Days: Prior Verbal Notification: Recipient Understood Notice: Yes Recipient Signature: Yes Med Rec Note Co-signed by Attending: Coverage Notice Comment: gordy for [facility] Nut Chopper: [id number] Makenzie Jade Rueda Notice Issued Date-Time: 09/08/2019 15:29 Notice Type: Patient Choice Letter Notice Delivered To: Patient Relationship to Patient: Self Flatwork Presser Name: Delivery Method: HAND - Hand Delivered Inna Days: Prior Verbal Notification: Recipient Understood Notice: Yes Recipient Signature: Yes Med Rec Note Co-signed by Attending: Coverage Notice Comment: GORDY for 1) [facility] 2) Valerio Last DP export: 09/08/19 2:54 pm Patient Name: JOYCE BULLARD Page [phone] at 0823 All edits/amendments must be made on the electronic document DICTATION DATE: 09/10/19822 FOOD COUNTER ATTENDANT: JIMMY 09/10/19822 RPT#: [id number] DC DATE: STATUS: ADM IN [facility] [address] [place] [address] END OF REPORT
[2019-09-10 09:00] LABS: EOSINOPHILS 1 % (0-7); LYMPHOCYTES 14 % (15-50); MONOCYTES 12 % (2-11); NEUTROPHILS 73 % (40-80); PLATELET ESTIMATE NORMAL; ROULEAUX OCC
[2019-09-10 12:00] VITALS: BP 108/41
[2019-09-10 16:00] VITALS: BP 95/41
--- NOTE | 2019-09-10 19:00 | NUR ---
EVENING ROUNDS COMPLETE, PT SITTING UP IN BED. NO SIGNS OF DISTRESS. PT DENIES ANY PAIN OR NEEDS AT THIS TIME. AAOX4. CL IN REACH, BED IN LOWEST POSITION.
[2019-09-10 20:00] VITALS: BP 104/46
[2019-09-10 22:33] LABS: ANION GAP 9.5 mmol/L (8-16); CALCIUM 7.8 mg/dL (8.5-10.1); CARBON DIOXIDE 24.1 mmol/L (21.0-32.0); CREATININE - SERUM 3.1 mg/dL (0.6-1.3); POTASSIUM - SERUM 4.6 mmol/L (3.5-5.1)
[2019-09-11] VITALS: BP 92/46
[2019-09-11 04:00] VITALS: BP 85/40
--- NOTE | 2019-09-11 07:02 | NUR ---
ASSESSMENT DONE. DENIES NEEDS
[2019-09-11 09:33] LABS: BASOPHILS 0.2 % (0-2); EOSINOPHILS 1.6 % (0-7); HEMATOCRIT 28.5 % (36.0-48.0); HEMOGLOBIN 9.5 g/dL (12-16); IMMATURE GRANULOCYTES 0.3 % (0-5); LYMPHOCYTES 14.2 % (15-50); MCH 29.6 pg (26.0-34.0); MCHC 33.3 g/dL (31.0-37.0); MCV 88.8 fL (80.0-100.0); MEAN PLATELET VOLUME 10.2 fL (7.4-10.4); MONOCYTES 11.6 % (2-11); NEUTROPHILS 72.1 % (40-80); PLATELET COUNT 119 10x3/uL (130-400); RBC 3.21 10x6/uL (4.00-5.40); RDW 22.7 % (11.5-14.5); WBC 9.5 10x3/uL (4.8-10.8)
[2019-09-11 09:50] LABS: ALBUMIN 1.7 g/dL (3.4-5.0); ANION GAP 9.1 mmol/L (8-16); CALCIUM 7.5 mg/dL (8.5-10.1); CARBON DIOXIDE 25.3 mmol/L (21.0-32.0); CREATININE - SERUM 2.9 mg/dL (0.6-1.3); POTASSIUM - SERUM 4.4 mmol/L (3.5-5.1); PROTEIN - SERUM 4.9 g/dL (6.4-8.2)
--- NOTE | 2019-09-11 11:08 | NUR ---
Nutrition Follow-up: Diet: Renal, 4gm Na PO intake: ~50% average x last 5 meals recorded. She states that her appetite depends on what is served on her tray. She states that she is filling out her menu. She denies have any nutrition request at this time. Last BM: 09/10/19. WT: 171# (09/04/19); Admit WT: 168# (09/02/19), no new wt Labs noted: Na 125(L), BUN 61(H), Cr 2.9(H), GFR 17(L), Ca 7.5(L), Alb 1.7(L) Meds noted: MagOx, lasix, vit B6, vit D Consider liberalizing diet to cardiac diet. Encouraged PO intake and honor all food preferences within diet restrictions. Recommend daily wts as ordered. RD following.
[2019-09-11 13:27] VITALS: BP 101/41
--- NOTE | 2019-09-11 16:22 | NUR ---
WITHOUT CHANGES OR DISTRESS NOTED AT THIS TIME. DENIES NEEDS
[2019-09-11 17:30] VITALS: BP 136/75
[2019-09-11 17:48] VITALS: BP 103/37
--- NOTE | 2019-09-11 18:47 | NUR ---
I have reviewed this patient and I concur with the Shift Assessment completed by the Licensed Practical Nurse today this shift.
[2019-09-11 20:30] VITALS: BP 84/36
--- NOTE | 2019-09-11 20:34 | NUR ---
RECEIVED UP IN BED WITH EYES OPENA ND TV ON. ALERT AND ORIENTED X4. REQUIRES ASSIST TO GET OOB. F/C IN PLACE WITH YELLOW URINE DRAING TO BEDSIDE CLOSED DRAINAGE SYSTEM. O2@ 2 LITERS PER N/C IN PLACE. IV TO RT FA SL. TELEMETRY IN PLACE. REQUEST LARGE WATER. NO OTHER REQUEST AT THIS TIME.
[2019-09-11 22:46] LABS: ANION GAP 5.8 mmol/L (8-16); CALCIUM 7.5 mg/dL (8.5-10.1); CARBON DIOXIDE 26.6 mmol/L (21.0-32.0); CREATININE - SERUM 2.8 mg/dL (0.6-1.3); POTASSIUM - SERUM 4.4 mmol/L (3.5-5.1)
[2019-09-12] VITALS (8 sets, daily range): BP systolic 78–182; BP diastolic 32–56
[2019-09-12 05:03] LABS: BASOPHILS 0.1 % (0-2); EOSINOPHILS 2.5 % (0-7); HEMATOCRIT 27.2 % (36.0-48.0); HEMOGLOBIN 8.8 g/dL (12-16); IMMATURE GRANULOCYTES 0.2 % (0-5); LYMPHOCYTES 16.9 % (15-50); MCH 28.8 pg (26.0-34.0); MCHC 32.4 g/dL (31.0-37.0); MCV 88.9 fL (80.0-100.0); MEAN PLATELET VOLUME 10.1 fL (7.4-10.4); MONOCYTES 15.3 % (2-11); PLATELET COUNT 118 10x3/uL (130-400); RBC 3.06 10x6/uL (4.00-5.40); RDW 22.9 % (11.5-14.5); WBC 8.4 10x3/uL (4.8-10.8)
[2019-09-12 05:48] LABS: ALBUMIN 1.4 g/dL (3.4-5.0); ANION GAP 11.5 mmol/L (8-16); BILIRUBIN - TOTAL 1.68 mg/dL (0.2-1.3); CALCIUM 7.6 mg/dL (8.5-10.1); CARBON DIOXIDE 21.9 mmol/L (21.0-32.0); CREATININE - SERUM 2.8 mg/dL (0.6-1.3); POTASSIUM - SERUM 4.4 mmol/L (3.5-5.1); PROTEIN - SERUM 4.5 g/dL (6.4-8.2)
--- NOTE | 2019-09-12 18:39 | NUR ---
PT RESTING IN BED COTNINUES TO HAVE INTERMITENT, DRY COUGH. SLEEPS MOST OF TIME. DECLINED TO SIT UP IN CHAIR TODAY. VSS NO ACUTE DISTRESS, WILL COTNINUE TO MONITOR.
--- NOTE | 2019-09-12 20:03 | NUR ---
RECEIVED UP IN BED WITH EYES CLOSED AND DINNER TRAY IN FRONT OF HER. REFUSES TO EAT STATING " I DONT LIKE THE FOOD HERE". O2@ 2 LITERS PER N/C IN PLACE. IV TO RT FA SL. OUMOU ARMS RESERVED D/T DBL MASCETOMY. TELEMETRY IN PLACE. DENIES ANY NEEDS AT THIS TIME.
[2019-09-13 00:30] VITALS: BP 91/42
[2019-09-13 04:30] VITALS: BP 76/32
[2019-09-13 09:00] VITALS: BP 88/36
[2019-09-13 09:49] LABS: ALBUMIN 1.6 g/dL (3.4-5.0); ANION GAP 10.7 mmol/L (8-16); BILIRUBIN - TOTAL 1.89 mg/dL (0.2-1.3); CALCIUM 7.5 mg/dL (8.5-10.1); CARBON DIOXIDE 23.6 mmol/L (21.0-32.0); CREATININE - SERUM 3.3 mg/dL (0.6-1.3); POTASSIUM - SERUM 4.3 mmol/L (3.5-5.1); PROTEIN - SERUM 5.2 g/dL (6.4-8.2)
[2019-09-13 09:53] LABS: HEMATOCRIT 28.9 % (36.0-48.0); HEMOGLOBIN 9.8 g/dL (12-16); MCH 30.1 pg (26.0-34.0); MCHC 33.9 g/dL (31.0-37.0); MCV 88.7 fL (80.0-100.0); MEAN PLATELET VOLUME 11.3 fL (7.4-10.4); PLATELET COUNT 122 10x3/uL (130-400); RBC 3.26 10x6/uL (4.00-5.40); RDW 22.7 % (11.5-14.5); WBC 8.7 10x3/uL (4.8-10.8)
[2019-09-13 10:13] LABS: BASOPHILS 1 % (0-2); EOSINOPHILS 1 % (0-7); LYMPHOCYTES 10 % (15-50); MONOCYTES 4 % (2-11); NEUTROPHILS 83 % (40-80); PLATELET ESTIMATE NORMAL
[2019-09-13 10:15] LABS: SCHISTOCYTES OCC
[2019-09-13 10:16] LABS: TARGET CELLS OCC
--- NOTE | 2019-09-13 13:19 | NUR ---
PT SAT UP IN CHAIR FOR SEVERAL HOURS. CONTINUES TO HAVE INTERMITENT COUGH PRODUCTIVE AT TIMES.
[2019-09-13 13:47] VITALS: BP 115/63
[2019-09-13 18:07] VITALS: BP 99/43
--- NOTE | 2019-09-13 18:15 | NUR ---
PT REPORTED BED LINENS WET. CHANGED BED LINES. PINEDA CATH NOTED TO HAVE LARGE PIECES OF BROWN/BLACK SEDIMENT. SCIENTIST PROPAGATOR NOTIFIED ORDERS TO CHANGE PINEDA. PINEDA CATH CHANGED IMMEDIATE RETURN OF CLOUDY YELLOW TO TAY URINE. PER SCIENTIST PROPAGATOR CONTINUE TO MONITOR AND OBTAIN AM LABS ALREADY ORDERED. PT TOLERATED PROCEDURE WELL. NO ACUTE DISTRESS WILL COTNINUE TO MONITOR.
[2019-09-13 18:48] LABS: ANION GAP 9.2 mmol/L (8-16); CALCIUM 7.7 mg/dL (8.5-10.1); CARBON DIOXIDE 23.3 mmol/L (21.0-32.0); CREATININE - SERUM 3.4 mg/dL (0.6-1.3); POTASSIUM - SERUM 4.5 mmol/L (3.5-5.1)
--- NOTE | 2019-09-13 19:20 | NUR ---
RECEIVED UP IN BED WITH EYES CLOSED. AROUSES WITH VERBAL STIMULI. MEAL TRAY NOT TOUCHED. ASKED HER WHY SHE DID'NT EAT IT AND SHE STATED "I DON'T LIKE IT". EXPLAINED THAT SHE HAS'NT EVEN TRIED IT. OFFERED TO REWARM MEAL AND SHE REFUSED IT. REFUSED TRAY NIGHT BEFORE. STATED " I ONLY EAT JELLO AND I DON'T WANT ANY RIGHT NOW". EDUCATED HER ON THE NEED TO EAT IN ORDER FOR HER TO GET WELL. GAVE VEBAL UNDERSTANDING. DENIES ANY OTHER NEEDS AT THIS TIME.
[2019-09-13 20:00] VITALS: BP 109/48
[2019-09-13 21:49] LABS: ANION GAP 13.3 mmol/L (8-16); CALCIUM 7.3 mg/dL (8.5-10.1); CARBON DIOXIDE 21.2 mmol/L (21.0-32.0); CREATININE - SERUM 3.5 mg/dL (0.6-1.3); POTASSIUM - SERUM 4.5 mmol/L (3.5-5.1)
[2019-09-14] VITALS: BP 100/58
[2019-09-14 04:00] VITALS: BP 106/49
[2019-09-14 06:32] LABS: HEMATOCRIT 28.5 % (36.0-48.0); HEMOGLOBIN 9.6 g/dL (12-16); MCH 29.7 pg (26.0-34.0); MCHC 33.7 g/dL (31.0-37.0); MCV 88.2 fL (80.0-100.0); MEAN PLATELET VOLUME 10.7 fL (7.4-10.4); PLATELET COUNT 119 10x3/uL (130-400); RBC 3.23 10x6/uL (4.00-5.40); RDW 22.5 % (11.5-14.5); WBC 7.6 10x3/uL (4.8-10.8)
[2019-09-14 06:53] LABS: ALBUMIN 1.6 g/dL (3.4-5.0); BILIRUBIN - TOTAL 1.65 mg/dL (0.2-1.3); CALCIUM 7.2 mg/dL (8.5-10.1); CARBON DIOXIDE 20.6 mmol/L (21.0-32.0); CREATININE - SERUM 3.3 mg/dL (0.6-1.3); POTASSIUM - SERUM 4.6 mmol/L (3.5-5.1); PROTEIN - SERUM 4.6 g/dL (6.4-8.2)
[2019-09-14 09:35] VITALS: BP 115/44
[2019-09-14 09:56] LABS: LYMPHOCYTES 16 % (15-50); MONOCYTES 17 % (2-11); NEUTROPHILS 67 % (40-80); PLATELET ESTIMATE NORMAL
--- NOTE | 2019-09-14 12:00 | MORECARE ---
CASE MANAGEMENT DISCHARGE SUMMARY PATIENT: JOYCE BULLARD UNIT: [id number] ADM DATE: 08/23/19 AGE: 69 : 48 SEX: F ROOM/BED: D.0913 AUTHOR: DALLAS,DOC PHYSICIAN: REFERRING PHYSICIAN: STANTON VERONICA MD DATE OF SERVICE: 09/14/19 Discharge Plan Patient Name: JOYCE BULLARD Facility: [facility]:[place] : 1950 Planned Disposition: Home Anticipated Discharge Date: Discharge Date: Expected LOS: Initial Reviewer: [email or web address] Initial Review Date: 08/27/2019 Generated: 09/14/19 12:59 pm Comments DCP- Discharge Planning Updated by [id number]: Jade Rueda on 09/14/19 10:[address] I called [facility] and gave a verbal report to Chloe. [facility] is ready to accept patient when she is medically stable for discharge and will continue to follow. CM will continue to follow and assist with discharge planning/needs. DCP- Discharge Planning Updated by [id number]: Jade Rueda on 09/10/19 7:[address] UPDATED CLINICAL AND NEGATIVE COVID FAXED TO [facility] FOR SNF PLACEMENT. CM WILL CONTINUE TO FOLLOW AND ASSIST WITH DISCHARGE PLANNING/NEEDS. DCP- Discharge Planning Updated by [id number]: Jade Rueda on 09/04/19 10:[address] Patient's sister, Yani Dwyer, called me concerned that her sister was being discharged home alone. States she is very weak and unable to care for herself. I have already spoken to Sharona Moran concerning this and a PT consult has been ordered. I spoke with the patient and she is in agreement to inpatient rehab at [facility] after her procedure on Saturday. Patient states she almost fell just trying to go to the bathroom. I instructed her to call a nurse before getting out of bed. I spoke with Shellie, at [facility] and she will need another walk test prior to going home if she is not discharged on Saturday. CM will continue to follow and assist with discharge planning/needs. Yani Dwyer - sister - [phone] DCP- Discharge Planning Updated by [id number]: Jade Rueda on 09/03/19 10:[address] Oxygen saturation is 88% on room air. I have called Shellie at [facility] and informed her of discharge today and need for portable to be brought to the hospital. Clinical faxed to [facility]. Patient is sleeping and not awakened for IMM at this time. CM will continue to follow and assist with discharge planning/needs. DCP- Discharge Planning Updated by [id number]: Jade Rueda on 08/27/19 4:[address] Patient Name: JOYCE BULLARD Admission Status: ER Accout number: [id number] Admission Date: 08-23-2019 : 1950 Admission Diagnosis:SHORTNESS OF BREATH Attending: STANTON VERONICA Current LOS: 4 Anticipated DC Date: Planned Disposition: Home Primary Insurance: MEDICARE A & B Discharge Planning Comments: CM met with patient to complete initial dc planning assessment. CM educated patient on the CM role and verbal consent given by patient to complete assessment. Patient lives at home alone. At discharge patient plans to return and feels this is a safe discharge. CM discussed availability of home health, rehab services, and medical equipment. Patient denied known discharge needs at this time. She gets her nebulizer supplies from [employer] [facility], so DONA for [facility] signed if oxygen is needed. She will need a qualifying walk test for home oxygen needs prior to discharge. CM will continue to follow and will assist as needed with dc plans/needs. Correction Lieutenant: Jade Trevizoreny DCPIA - Discharge Planning Initial Assessment Updated by [id number]: Jade Mohit on 08/27/19 5:03 pm * Is the patient Alert and Oriented? Yes * How many steps to enter\exit or inside your home? 2/0 * PCP Dr. Sanford * Pharmacy [facility] * Preadmission Environment Home Alone * ADLs Partial Dependent * Partial ADLs (Assistance needed) Ambulation * Equipment Cane Elevated [place] Seat Nebulizer Walker * List name and contact numbers for known caregivers / representatives who currently or will assist patient after discharge: Monica terry - [phone] Juan C Dwyer - [phone] * Verbal permission to speak to the caregivers and representatives has been obtained from the patient. Yes * Community resources currently utilized None * Additional services required to return to the preadmission environment? No * Can the patient safely return to the preadmission environment? Yes * Has this patient been hospitalized within the prior 30 days at any hospital? No Coverage Notice Reviewer: [id number] Makenzie Rueda Notice Issued Date-Time: 08/27/2019 17:05 Notice Type: Patient Choice Letter Notice Delivered To: Patient Relationship to Patient: Self Manager Discovery Name: Delivery Method: HAND - Hand Delivered Nina Days: Prior Verbal Notification: Recipient Understood Notice: Yes Recipient Signature: Yes Med Rec Note Co-signed by Attending: Coverage Notice Comment: dona for [facility] Bobbin Collector: [id number] Makenzie Rueda Notice Issued Date-Time: 09/08/2019 15:29 Notice Type: Patient Choice Letter Notice Delivered To: Patient Relationship to Patient: Self Manager Discovery Name: Delivery Method: HAND - Hand Delivered Inna Days: Prior Verbal Notification: Recipient Understood Notice: Yes Recipient Signature: Yes Med Rec Note Co-signed by Attending: Coverage Notice Comment: DONA for 1) [facility] 2) Valerio Pierson DP export: 09/10/19 7:23 a Patient Name: JOYCE BULLARD Page [phone] at 1200 All edits/amendments must be made on the electronic document DICTATION DATE: 09/14/19 1159 POINT OF CARE SPECIALIST: JIMMY 09/14/19 1159 RPT#: [id number] DC DATE: STATUS: ADM IN [facility] [address] [place] [address] END OF REPORT
[2019-09-14 14:33] VITALS: BP 121/49
--- NOTE | 2019-09-14 19:00 | NUR ---
REPORT RECEIVED, WILL CONTINUE POC. PATIENT IS AAOX4, LYING IN HIGH FOWLERS POSITION. NO S/S OF DISTRESS OBSERVED, RR EVEN AND UNLABORED ON 2L O2 VIA NC. PATIENT DENIES NEEDS AT THIS TIME. CL IN REACH, BED LOCKED AND LOWERED. WILL CTM.
[2019-09-14 19:01] VITALS: BP 113/45
[2019-09-14 20:00] VITALS: BP 124/54
[2019-09-14 22:10] LABS: ANION GAP 12.8 mmol/L (8-16); CALCIUM 7.4 mg/dL (8.5-10.1); CARBON DIOXIDE 19.3 mmol/L (21.0-32.0); CREATININE - SERUM 3.2 mg/dL (0.6-1.3); POTASSIUM - SERUM 4.1 mmol/L (3.5-5.1)
[2019-09-15 04:00] VITALS: BP 104/48
[2019-09-15 06:41] LABS: BASOPHILS 0.1 % (0-2); HEMOGLOBIN 9.7 g/dL (12-16); IMMATURE GRANULOCYTES 0.1 % (0-5); LYMPHOCYTES 14.8 % (15-50); MCH 29.3 pg (26.0-34.0); MCHC 33.4 g/dL (31.0-37.0); MCV 87.6 fL (80.0-100.0); MEAN PLATELET VOLUME 9.6 fL (7.4-10.4); MONOCYTES 17.9 % (2-11); NEUTROPHILS 66.1 % (40-80); PLATELET COUNT 100 10x3/uL (130-400); RBC 3.31 10x6/uL (4.00-5.40); RDW 22.4 % (11.5-14.5)
[2019-09-15 06:56] LABS: ALBUMIN 1.5 g/dL (3.4-5.0); BILIRUBIN - TOTAL 1.64 mg/dL (0.2-1.3); CALCIUM 7.4 mg/dL (8.5-10.1); CARBON DIOXIDE 19.3 mmol/L (21.0-32.0); CREATININE - SERUM 2.9 mg/dL (0.6-1.3); MAGNESIUM - SERUM 2.8 mg/dL (1.8-2.4); POTASSIUM - SERUM 4.3 mmol/L (3.5-5.1); PROTEIN - SERUM 4.7 g/dL (6.4-8.2)
[2019-09-15 07:13] LABS: APTT 39.2 SECONDS (22.8-39.4); INR 1.19 (0.85-1.17); PROTIME 15.1 SECONDS (11.6-15.0)
[2019-09-15 09:24] VITALS: BP 105/45
[2019-09-15 09:34] LABS: CREATININE - URINE 130.4 mg/dL (30-125); PRO/CRE RATIO URINE 0.5 mg/g; PROTEIN - URINE 62.4 mg/dL (0.0-11.9)
--- NOTE | 2019-09-15 10:29 | NUR ---
I have reviewed this patient and I concur with the Shift Assessment completed by the Licensed Practical Nurse today this shift.
[2019-09-15 10:31] LABS: AMORPHOUS SEDIMENT <1+ /lpf (NONE SEEN); BACTERIA FEW /hpf (NEGATIVE); BILIRUBIN NEGATIVE (NEGATIVE); EPITHELIAL CELLS OCC /hpf (0-5); GLUCOSE NEGATIVE (NEGATIVE); KETONE NEGATIVE (NEGATIVE); NITRITE NEGATIVE (NEGATIVE); RED CELLS - URINE >50 /hpf (0-5); SPECIFIC GRAVITY 1.015 (1.005-1.020); UROBILINOGEN NORMAL (NORMAL); WHITE CELLS - URINE OCC /hpf (NEGATIVE); YEAST <1+ /hpf (NONE SEEN)
[2019-09-15 11:00] VITALS: BP 124/55
--- NOTE | 2019-09-15 12:48 | NUR ---
[facility] CALLED AND ASKED IF PT IS IN RESPIRATORY DISTRESS CURRENTLY. I STATED NO PT HAS BEEN LETHARGIC. THEY STATED THEY WILL NEED TO PUT PT OFF TILL TOMORROW BECAUSE THEY HAD TOO MANY CASES SCHEDULED TODAY. THIS NURSE SPOKE WITH DR. GUTIERREZ AND HE STATED THAT IT IS FINE WITH HIM TO WAIT AND DO PROCEDURE TOMORROW. I VERBALIZED UNDERSTANDING. CALLED [facility] AND TOLD THEM THIS AND THEY VERBALIZED UNDERSTANDING AND STATED THEY WILL DO PT TOMORROW.
--- NOTE | 2019-09-15 12:55 | NUR ---
SPOKE WITH PT THAT THORACENTESIS WAS CHANGED FOR TOMORROW. SHE VERBALIZED UNDERSTANDING AND ASKED FOR A GRILLED CHEESE AND COLESLAW. I VERBALIZED UNDERSTANDING.
--- NOTE | 2019-09-15 13:08 | NUR ---
Nutrition Follow-up: Pt has not been eating well. Noted thoracentesis changed to tomorrow. Diet: Renal, 4 g Na Wt: 189# (09/14); 171# (09/02); 166.4# (08/24) Labs noted: Na 127, Ca 7.4, Mg 2.8, K+ 4.3, Alb 1.5 Meds noted: Pepcid, Colace, vitamin B6, vitamin D, electrolyte protocol -Rec liberalize diet. -Encourage PO intake and honor food preferences within diet restrictions. -Offer nutrition supplements. -Pt may benefit from appetite stimulant. -Monitor wt; noted daily wts ordered. -RD following.
--- NOTE | 2019-09-15 13:15 | NUR ---
CONSENTS FOR THORACENTESIS TOMORROW SIGNED.
[2019-09-15 15:00] VITALS: BP 133/58
--- NOTE | 2019-09-15 19:30 | NUR ---
PT IN BED, AAO X 2, RESP EVEN AND UNLABORED. NO DISTRESS NOTED, CL IN REACH, SR UP X 2.
[2019-09-15 20:00] VITALS: BP 136/55
[2019-09-15 23:48] LABS: ANION GAP 13.6 mmol/L (8-16); CALCIUM 7.6 mg/dL (8.5-10.1); CARBON DIOXIDE 19.3 mmol/L (21.0-32.0); CREATININE - SERUM 2.7 mg/dL (0.6-1.3); POTASSIUM - SERUM 3.9 mmol/L (3.5-5.1)
[2019-09-16 04:00] VITALS: BP 105/45
[2019-09-16 06:17] LABS: HEMATOCRIT 25.6 % (36.0-48.0); HEMOGLOBIN 8.5 g/dL (12-16); MCH 29.2 pg (26.0-34.0); MCHC 33.2 g/dL (31.0-37.0); MEAN PLATELET VOLUME 10.3 fL (7.4-10.4); PLATELET COUNT 94 10x3/uL (130-400); RBC 2.91 10x6/uL (4.00-5.40); RDW 22.3 % (11.5-14.5)
[2019-09-16 06:30] LABS: ANION GAP 12.1 mmol/L (8-16); BILIRUBIN - TOTAL 1.81 mg/dL (0.2-1.3); CARBON DIOXIDE 20.7 mmol/L (21.0-32.0); CREATININE - SERUM 2.5 mg/dL (0.6-1.3); POTASSIUM - SERUM 3.8 mmol/L (3.5-5.1); PROTEIN - SERUM 5.1 g/dL (6.4-8.2)
[2019-09-16 06:32] LABS: ALBUMIN 2.2 g/dL (3.4-5.0)
[2019-09-16 06:52] LABS: INR 1.27 (0.85-1.17); PROTIME 15.8 SECONDS (11.6-15.0)
[2019-09-16 06:53] LABS: APTT 44.2 SECONDS (22.8-39.4)
--- NOTE | 2019-09-16 07:30 | NUR ---
PT SITTING UP IN THE BED, RR EVEN AND UNLABORED. DENIES NEEDS OR PAIN AT THIS TIME. CALL LIGHT WITHIN REACH. PT IS LETHARGIC BUT RESPONDS TO LIGHT TOUCH AND VERBAL STIMULI. WILL CONTINUE TO0 MONITOR.
[2019-09-16 10:35] VITALS: BP 109/52
[2019-09-16 12:35] LABS: ANISOCYTOSIS OCC; EOSINOPHILS 2 % (0-7); LYMPHOCYTES 11 % (15-50); MONOCYTES 20 % (2-11); NEUTROPHILS 66 % (40-80); PLATELET ESTIMATE DECREASED; POIKILOCYTOSIS OCC
[2019-09-16 13:03] VITALS: BP 116/45
[2019-09-16 20:00] VITALS: BP 134/47
[2019-09-16 22:10] LABS: ANION GAP 10.8 mmol/L (8-16); CALCIUM 8.2 mg/dL (8.5-10.1); CARBON DIOXIDE 22.6 mmol/L (21.0-32.0); CREATININE - SERUM 2.2 mg/dL (0.6-1.3); POTASSIUM - SERUM 3.4 mmol/L (3.5-5.1)
--- NOTE | 2019-09-17 00:54 | NUR ---
PT RESTING IN BED WHITH EYES CLOSED RR EVEN AND UNLABORED. NO S/S OF DISTRESS AT THIS TIME. BED LOW CALL LIGHT WITHIN REACH. WILL CONTINUE TOP MONITOR.
--- NOTE | 2019-09-17 04:36 | NUR ---
I have reviewed this patient and I concur with the Shift Assessment completed by the Licensed Practical Nurse today this shift.
[2019-09-17 05:26] LABS: BASOPHILS 0.2 % (0-2); EOSINOPHILS 0 % (0-7); HEMATOCRIT 24.6 % (36.0-48.0); HEMOGLOBIN 8.3 g/dL (12-16); IMMATURE GRANULOCYTES 0.2 % (0-5); LYMPHOCYTES 7.4 % (15-50); MCH 30.1 pg (26.0-34.0); MCHC 33.7 g/dL (31.0-37.0); MCV 89.1 fL (80.0-100.0); MEAN PLATELET VOLUME 10.6 fL (7.4-10.4); MONOCYTES 13.6 % (2-11); NEUTROPHILS 78.6 % (40-80); RBC 2.76 10x6/uL (4.00-5.40); RDW 22.4 % (11.5-14.5); WBC 5.4 10x3/uL (4.8-10.8)
[2019-09-17 05:34] LABS: PLATELET COUNT 64 10x3/uL (130-400)
[2019-09-17 05:37] LABS: ALBUMIN 2.4 g/dL (3.4-5.0); ANION GAP 11.5 mmol/L (8-16); BILIRUBIN - TOTAL 2.01 mg/dL (0.2-1.3); CALCIUM 8.2 mg/dL (8.5-10.1); CARBON DIOXIDE 21.7 mmol/L (21.0-32.0); CREATININE - SERUM 1.9 mg/dL (0.6-1.3); POTASSIUM - SERUM 3.2 mmol/L (3.5-5.1); PROTEIN - SERUM 4.9 g/dL (6.4-8.2)
--- NOTE | 2019-09-17 07:24 | NUR ---
PT RESTING, EYES CLOSED. RR EVEN AND UNLABORED ON 2L NC. NO DISTRESS NOTED. CALL LIHGT WITHIN REACH. BED IN LOWEST POSITION. WILL CONTINUE TO MONITOR.
[2019-09-17 08:50] VITALS: BP 107/43
[2019-09-17 11:00] VITALS: BP 135/50
--- NOTE | 2019-09-17 11:22 | NUR ---
Nutrition Follow-up: S/p thoracentesis yesterday (-2 L). Nurse reports pt has not been eating well but that she will encourage PO intake today. Pt eating jello at time of visit this AM. Denies N/V. Unsure of last BM. Reports not really any improvement in appetite. Diet: Renal, 4 g Na Wt: 189# (09/14); 171# (09/03); 166.4# (09/24) Labs noted: Na 133, K+ 3.2, Ca 8.2, Alb 2.4 Meds noted: Lactulose, NS @ 30, Pepcid, Colace, vitamin B6, vitamin D, electrolyte protocol -MD may consider diet liberalization. -Encourage PO intake and honor food preferences within diet restrictions. -Offer nutrition supplements; if PO intake remains poor, rec consider nutrition support. -Pt may benefit from appetite stimulant. -Need new wt; noted daily wts ordered. -RD following.
--- NOTE | 2019-09-17 13:52 | NUR ---
RECTAL TUBE PLACED AND 70MLS OF SOLUTION PLACED. RECTAL TUBE CLAMPED AND WILL RELEASE IN ABOUT THIRTY MINS PER ORDER.
[2019-09-17 15:00] VITALS: BP 111/45
--- NOTE | 2019-09-17 17:46 | NUR ---
ATTEMPTED X 3 TO GET PT TO EAT. STATES SHE WILL WAKE UP AND EAT EVERYTIME SHE IS ENCOURAGED TO BUT DOES NOT. ASSISTED FORK TO PT'S MOUTH AND SHE STATED SHE COULD DO IT HERSELF. REMINDED THAT SHE NEEDED TO EAT IN ORDER TO GET HEALTHY AND SHE STATED SHE KNOWS.
--- NOTE | 2019-09-17 18:44 | NUR ---
I have reviewed this patient and I concur with the Shift Assessment completed by the Licensed Practical Nurse today this shift.
[2019-09-17 20:00] VITALS: BP 113/53
[2019-09-18] VITALS: BP 101/41; BP 113/53
[2019-09-18 04:00] VITALS: BP 104/46
--- NOTE | 2019-09-18 05:10 | NUR ---
I have reviewed this patient and I concur with the Shift Assessment completed by the Licensed Practical Nurse today this shift.
--- NOTE | 2019-09-18 07:05 | NUR ---
PT MORE ALERT THAN SHE HAS BEEN AT THIS TIME. PT KEEPING EYES PARTIALLY CLOSED BUT IS CONVERSING. WILL COTNINUE TO MONITOR. BED LOW. CL IN REACH.
[2019-09-18 08:00] VITALS: BP 103/49
--- NOTE | 2019-09-18 08:16 | MORECARE ---
CASE MANAGEMENT DISCHARGE SUMMARY PATIENT: JOYCE BULLARD UNIT: [id number] ADM DATE: 08/23/19 AGE: 69 : 48 SEX: F ROOM/BED: D.7783 AUTHOR: DALLAS,DOC PHYSICIAN: REFERRING PHYSICIAN: STANTON VERONICA MD DATE OF SERVICE: 09/18/19 Discharge Plan Patient Name: JOYCE BULLARD Facility: [facility]:[place] : 1950 Planned Disposition: Home Anticipated Discharge Date: Discharge Date: Expected LOS: Initial Reviewer: [email or web address] Initial Review Date: 08/27/2019 Generated: 09/18/19 9:16 am Comments DCP- Discharge Planning Updated by [id number]: Jade Rueda on 09/18/19 7:[address] Updated notes faxed to [facility]. Possible pleurx on Saturday, so hopefully can DC to Saturday. CM will continue to follow and assist with discharge planning/needs. DCP- Discharge Planning Updated by [id number]: Jade Rueda on 09/14/19 10:[address] I called [facility] and gave a verbal report to Chloe. [facility] is ready to accept patient when she is medically stable for discharge and will continue to follow. CM will continue to follow and assist with discharge planning/needs. DCP- Discharge Planning Updated by [email or web address]: Jade Rueda on 09/10/19 7:[address] UPDATED CLINICAL AND NEGATIVE COVID FAXED TO [facility] FOR SNF PLACEMENT. CM WILL CONTINUE TO FOLLOW AND ASSIST WITH DISCHARGE PLANNING/NEEDS. DCP- Discharge Planning Updated by [email or web address]: Jade Rueda on 09/04/19 10:[address] Patient's sister, Yani Dwyer, called me concerned that her sister was being discharged home alone. States she is very weak and unable to care for herself. I have already spoken to Sharona Moran concerning this and a PT consult has been ordered. I spoke with the patient and she is in agreement to inpatient rehab at [facility] after her procedure on Saturday. Patient states she almost fell just trying to go to the bathroom. I instructed her to call a nurse before getting out of bed. I spoke with Shellie, at [facility] and she will need another walk test prior to going home if she is not discharged on Saturday. CM will continue to follow and assist with discharge planning/needs. Yani Dwyer - - [phone] DCP- Discharge Planning Updated by [id number]: Jade Rueda on 09/03/19 10:[address] Oxygen saturation is 88% on room air. I have called Shellie at [facility] and informed her of discharge today and need for portable to be brought to the hospital. Clinical faxed to [facility]. Patient is sleeping and not awakened for IMM at this time. CM will continue to follow and assist with discharge planning/needs. DCP- Discharge Planning Updated by [id number]: Jade Rueda on 08/27/19 4:[address] Patient Name: JOYCE BULLARD Admission Status: ER Accout number: [id number] Admission Date: 08-23-2019 : 1950 Admission Diagnosis:SHORTNESS OF BREATH Attending: STANTON VERONICA Current LOS: 4 Anticipated DC Date: Planned Disposition: Home Primary Insurance: MEDICARE A & B Discharge Planning Comments: CM met with patient to complete initial dc planning assessment. CM educated patient on the CM role and verbal consent given by patient to complete assessment. Patient lives at home alone. At discharge patient plans to return and feels this is a safe discharge. CM discussed availability of home health, rehab services, and medical equipment. Patient denied known discharge needs at this time. She gets her nebulizer supplies from [facility], so DONA for [facility] signed if oxygen is needed. She will need a qualifying walk test for home oxygen needs prior to discharge. CM will continue to follow and will assist as needed with dc plans/needs. Services Clerk: Jade Rueda DCPIA - Discharge Planning Initial Assessment Updated by [email or web address]: Jade Rueda on 08/27/19 5:03 pm * Is the patient Alert and Oriented? Yes * How many steps to enter\exit or inside your home? 2/0 * PCP Dr. Sanford * Pharmacy [facility] 1 * Preadmission Environment Home Alone * ADLs Partial Dependent * Partial ADLs (Assistance needed) Ambulation * Equipment Cane Elevated [place] Seat Nebulizer Walker * List name and contact numbers for known caregivers / representatives who currently or will assist patient after discharge: Monica Osuna [facility] - [phone] Juan C Dwyer [phone] * Verbal permission to speak to the caregivers and representatives has been obtained from the patient. Yes * Community resources currently utilized None * Additional services required to return to the preadmission environment? No * Can the patient safely return to the preadmission environment? Yes * Has this patient been hospitalized within the prior 30 days at any hospital? No Coverage Notice Reviewer: [email or web address] Makenzie Rueda Notice Issued Date-Time: 08/27/2019 17:05 Notice Type: Patient Choice Letter Notice Delivered To: Patient Relationship to Patient: Self Sales Warehouse Driver Name: Delivery Method: HAND - Hand Delivered Inna Days: Prior Verbal Notification: Recipient Understood Notice: Yes Recipient Signature: Yes Med Rec Note Co-signed by Attending: Coverage Notice Comment: dona for [facility] Deputy Fire Marshal: [id number] Makenzie Rueda Notice Issued Date-Time: 09/08/2019 15:29 Notice Type: Patient Choice Letter Notice Delivered To: Patient Relationship to Patient: Self Sales Warehouse Driver Name: Delivery Method: HAND - Hand Delivered Inna Days: Prior Verbal Notification: Recipient Understood Notice: Yes Recipient Signature: Yes Med Rec Note Co-signed by Attending: Coverage Notice Comment: ODNA for 1) [facility] 2) [facility] DP export: 09/14/19 11:00 a Patient Name: JOYCE BULLARD Page [id number] at 0816 All edits/amendments must be made on the electronic document DICTATION DATE: 09/18/19815 TWINE REELING MACHINE OPERATOR: JIMMY 09/18/19815 RPT#: [id number] DC DATE: STATUS: ADM IN [facility] [address] [place] [address] END OF REPORT
[2019-09-18 09:21] LABS: BASOPHILS 0.2 % (0-2); EOSINOPHILS 0.5 % (0-7); HEMATOCRIT 25.2 % (36.0-48.0); HEMOGLOBIN 8.5 g/dL (12-16); IMMATURE GRANULOCYTES 0.2 % (0-5); LYMPHOCYTES 11.2 % (15-50); MCH 29.9 pg (26.0-34.0); MCHC 33.7 g/dL (31.0-37.0); MCV 88.7 fL (80.0-100.0); MONOCYTES 13.1 % (2-11); NEUTROPHILS 74.8 % (40-80); RBC 2.84 10x6/uL (4.00-5.40); RDW 22.2 % (11.5-14.5)
[2019-09-18 09:23] LABS: PLATELET COUNT 85 10x3/uL (130-400)
[2019-09-18 09:32] LABS: ALBUMIN 2.3 g/dL (3.4-5.0); ANION GAP 10.4 mmol/L (8-16); BILIRUBIN - TOTAL 2.07 mg/dL (0.2-1.3); CALCIUM 8.4 mg/dL (8.5-10.1); CARBON DIOXIDE 22.8 mmol/L (21.0-32.0); CREATININE - SERUM 1.7 mg/dL (0.6-1.3); POTASSIUM - SERUM 3.2 mmol/L (3.5-5.1); PROTEIN - SERUM 4.9 g/dL (6.4-8.2)
[2019-09-18 10:23] LABS: ANISOCYTOSIS 1+; PLATELET ESTIMATE DECREASED
[2019-09-18 10:24] LABS: CRENATED CELLS 1+; SMUDGE CELLS OCC
[2019-09-18 12:00] VITALS: BP 118/44
[2019-09-18 17:11] LABS: ANION GAP 12.6 mmol/L (8-16); CALCIUM 8.4 mg/dL (8.5-10.1); CREATININE - SERUM 1.8 mg/dL (0.6-1.3); POTASSIUM - SERUM 3.6 mmol/L (3.5-5.1)
--- NOTE | 2019-09-18 19:00 | NUR ---
BEDSIDE REPORT RECEIVED, PT CARE ASSUMED. PT LYING IN BED WITH EYES CLOSED, RR EVEN AND NONLABORED, NO S/S OF DISTRESS, AROUSES EASILY TO VOICE. DENIES ANY NEEDS AT THIS TIME. BED IN LOWEST, SRX3, CALL LIGHT WITHIN REACH. WILL CTM.
[2019-09-18 20:30] VITALS: BP 124/43
[2019-09-19 00:30] VITALS: BP 93/35
[2019-09-19 04:30] VITALS: BP 103/34
[2019-09-19 05:04] LABS: BASOPHILS 0.6 % (0-2); EOSINOPHILS 0.6 % (0-7); HEMATOCRIT 24.4 % (36.0-48.0); HEMOGLOBIN 8.1 g/dL (12-16); IMMATURE GRANULOCYTES 0.4 % (0-5); LYMPHOCYTES 14.8 % (15-50); MCH 29.9 pg (26.0-34.0); MCHC 33.2 g/dL (31.0-37.0); NEUTROPHILS 64.6 % (40-80); RBC 2.71 10x6/uL (4.00-5.40); RDW 22.5 % (11.5-14.5)
[2019-09-19 05:09] LABS: PLATELET COUNT 78 10x3/uL (130-400)
[2019-09-19 09:56] VITALS: BP 109/42
[2019-09-19 10:45] LABS: ANION GAP 10.5 mmol/L (8-16); CALCIUM 8.4 mg/dL (8.5-10.1); CARBON DIOXIDE 21.3 mmol/L (21.0-32.0); CREATININE - SERUM 1.7 mg/dL (0.6-1.3); POTASSIUM - SERUM 3.8 mmol/L (3.5-5.1)
[2019-09-19 11:14] LABS: MAGNESIUM - SERUM 2.9 mg/dL (1.8-2.4)
[2019-09-19 13:04] VITALS: BP 137/67
--- NOTE | 2019-09-19 17:40 | NUR ---
RECTAL TUBE PLACED PER ORDER. OUTPUT NOTICED. WILL CONT TO MONITOR.
[2019-09-19 18:00] VITALS: BP 121/50
--- NOTE | 2019-09-19 18:55 | NUR ---
BEDSIDE REPORT RECEIVED, PT CARE ASSUMED. WROTE NAME ON BOARD. PT LYING IN BED WITH EYES CLOSED, RR EVEN AND NONLABORED, NO S/S OF DISTRESS, AROUSES EASILY TO VOICE. PT REPOSITIONED FOR RECTAL TUBE TO ALLOW FOR DRAINAGE PER GRAVITY, REINFORCED SIDE-LYING POSITION FOR TUBE TO DRAIN PROPERLY. DENIES ANY NEEDS AT THIS TIME. BED IN LOWEST, SRX2, CALL LIGHT WITHIN REACH. WILL CTM.
[2019-09-19 20:30] VITALS: BP 106/38
[2019-09-20 00:30] VITALS: BP 90/40
[2019-09-20 04:30] VITALS: BP 99/48
[2019-09-20 05:17] LABS: BASOPHILS 0.4 % (0-2); EOSINOPHILS 0.2 % (0-7); IMMATURE GRANULOCYTES 0.2 % (0-5); LYMPHOCYTES 15.6 % (15-50); MCH 30.2 pg (26.0-34.0); MCHC 33.3 g/dL (31.0-37.0); MCV 90.6 fL (80.0-100.0); MEAN PLATELET VOLUME 10.7 fL (7.4-10.4); MONOCYTES 13.6 % (2-11); NEUTROPHILS 70.2 % (40-80); RBC 2.65 10x6/uL (4.00-5.40); RDW 22.3 % (11.5-14.5); WBC 4.6 10x3/uL (4.8-10.8)
[2019-09-20 05:19] LABS: PLATELET COUNT 61 10x3/uL (130-400); PLATELET ESTIMATE DECREASED
[2019-09-20 05:24] LABS: ALBUMIN 2.7 g/dL (3.4-5.0); BILIRUBIN - TOTAL 2.49 mg/dL (0.2-1.3); CALCIUM 8.5 mg/dL (8.5-10.1); CARBON DIOXIDE 24.3 mmol/L (21.0-32.0); CREATININE - SERUM 1.6 mg/dL (0.6-1.3); MAGNESIUM - SERUM 2.6 mg/dL (1.8-2.4)
[2019-09-20 05:26] LABS: ANION GAP 11.3 mmol/L (8-16); POTASSIUM - SERUM 3.6 mmol/L (3.5-5.1)
--- NOTE | 2019-09-20 12:35 | NUR ---
PT SLEPT MOST OF THIS MORNING, DIFFICULT TO AROUSE FOR MORNING MEDS. DID AWAKEN RIGHT BEFORE LUNCH AND TOOK [facility] MED. SOMNOLENT/LETHARGIC THROUGHOUT THIS SHIFT. HOSPICE REFERRAL PENDING. NO ACUTE DISTRESS. WILL CONTINUE TO MONITOR.
[2019-09-20 15:11] VITALS: BP 109/51
--- NOTE | 2019-09-20 15:26 | NUR ---
PT SISTER, CHRISTOPHER SERRANO, CALLED AND REPORTED SHE SHOULD BE PT CONTACT NOT [facility]. 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
[2019-09-20 15:54] LABS: BILIRUBIN NEGATIVE (NEGATIVE); GLUCOSE NEGATIVE (NEGATIVE); KETONE NEGATIVE (NEGATIVE); NITRITE NEGATIVE (NEGATIVE); UROBILINOGEN NORMAL (NORMAL)
[2019-09-20 15:55] LABS: BACTERIA FEW /hpf (NEGATIVE); EPITHELIAL CELLS OCC /hpf (0-5); WHITE CELLS - URINE 0-5 /hpf (NEGATIVE)
--- NOTE | 2019-09-20 16:08 | MORECARE ---
CASE MANAGEMENT DISCHARGE SUMMARY PATIENT: JOYCE BULLARD UNIT: [id number] ADM DATE: 08/23/19 AGE: 69 : 48 SEX: F ROOM/BED: D.5030 AUTHOR: DALLAS,DOC PHYSICIAN: REFERRING PHYSICIAN: STANTON VERONICA MD DATE OF SERVICE: 09/20/19 Discharge Plan Patient Name: JOYCE BULLARD Facility: [facility]:[place] : 1950 Planned Disposition: Home Anticipated Discharge Date: Discharge Date: Expected LOS: Initial Reviewer: [email or web address] Initial Review Date: 08/27/2019 Generated: 09/20/19 5:07 pm Comments DCP- Discharge Planning Updated by [id number]: Jade Rueda on 09/18/19 7:[address] Updated notes faxed to [facility]. Possible pleurx on Saturday, so hopefully can DC to Saturday. CM will continue to follow and assist with discharge planning/needs. DCP- Discharge Planning Updated by [email or web address]: Jade Rueda on 09/14/19 10:[address] I called [facility] and gave a verbal report to Chloe. [facility] is ready to accept patient when she is medically stable for discharge and will continue to follow. CM will continue to follow and assist with discharge planning/needs. DCP- Discharge Planning Updated by [id number]: Jade Rueda on 09/10/19 7:[address] UPDATED CLINICAL AND NEGATIVE COVID FAXED TO [facility] FOR SNF PLACEMENT. CM WILL CONTINUE TO FOLLOW AND ASSIST WITH DISCHARGE PLANNING/NEEDS. DCP- Discharge Planning Updated by [id number]: Jade Rueda on 09/04/19 10:[address] Patient's sister, Yani Dwyer, called me concerned that her sister was being discharged home alone. States she is very weak and unable to care for herself. I have already spoken to Sharona Moran concerning this and a PT consult has been ordered. I spoke with the patient and she is in agreement to inpatient rehab at [facility] after her procedure on Saturday. Patient states she almost fell just trying to go to the bathroom. I instructed her to call a nurse before getting out of bed. I spoke with Shellie, at [facility] and she will need another walk test prior to going home if she is not discharged on Saturday. CM will continue to follow and assist with discharge planning/needs. Yani Dwyer - - [phone] DCP- Discharge Planning Updated by [id number]: Jade Rueda on 09/03/19 10:[address] Oxygen saturation is 88% on room air. I have called Shellie at [facility] and informed her of discharge today and need for portable to be brought to the hospital. Clinical faxed to [facility]. Patient is sleeping and not awakened for IMM at this time. CM will continue to follow and assist with discharge planning/needs. DCP- Discharge Planning Updated by [id number]: Jade Rueda on 08/27/19 4:[address] Patient Name: JOYCE BULLARD Admission Status: ER Accout number: [id number] Admission Date: 08-23-2019 : 1950 Admission Diagnosis:SHORTNESS OF BREATH Attending: STANTON VERONICA Current LOS: 4 Anticipated DC Date: Planned Disposition: Home Primary Insurance: MEDICARE A & B Discharge Planning Comments: CM met with patient to complete initial dc planning assessment. CM educated patient on the CM role and verbal consent given by patient to complete assessment. Patient lives at home alone. At discharge patient plans to return and feels this is a safe discharge. CM discussed availability of home health, rehab services, and medical equipment. Patient denied known discharge needs at this time. She gets her nebulizer supplies from [facility], so DONA for [facility] signed if oxygen is needed. She will need a qualifying walk test for home oxygen needs prior to discharge. CM will continue to follow and will assist as needed with dc plans/needs. Lead Recreation Assistant: Jade Rueda DCPIA - Discharge Planning Initial Assessment Updated by [id number]: Jade Rueda on 08/27/19 5:03 pm * Is the patient Alert and Oriented? Yes * How many steps to enter\exit or inside your home? 2/0 * PCP Dr. Sanford * Pharmacy [facility] * Preadmission Environment Home Alone * ADLs Partial Dependent * Partial ADLs (Assistance needed) Ambulation * Equipment Cane Elevated [place] Seat Nebulizer Walker * List name and contact numbers for known caregivers / representatives who currently or will assist patient after discharge: Monica Osuna [facility] - [phone] Juan C Dwyer [phone] * Verbal permission to speak to the caregivers and representatives has been obtained from the patient. Yes * Community resources currently utilized None * Additional services required to return to the preadmission environment? No * Can the patient safely return to the preadmission environment? Yes * Has this patient been hospitalized within the prior 30 days at any hospital? No External Providers External Provider: [facility] *(provides inpt [facility] Next Contact Date: Service Request Date: Service Type: Resolution: Reviewer: Comments: Coverage Notice Reviewer: [id number] Makenzie Rudea Notice Issued Date-Time: 08/27/2019 17:05 Notice Type: Patient Choice Letter Notice Delivered To: Patient Relationship to Patient: Self Shift Supervisor Melting Name: Delivery Method: HAND - Hand Delivered Inna Days: Prior Verbal Notification: Recipient Understood Notice: Yes Recipient Signature: Yes Med Rec Note Co-signed by Attending: Coverage Notice Comment: dona for [facility] Glass Forming Crew Member: [id number] Rueda Notice Issued Date-Time: 09/08/2019 15:29 Notice Type: Patient Choice Letter Notice Delivered To: Patient Relationship to Patient: Self Shift Supervisor Melting Name: Delivery Method: HAND - Hand Delivered Inna Days: Prior Verbal Notification: Recipient Understood Notice: Yes Recipient Signature: Yes Med Rec Note Co-signed by Attending: Coverage Notice Comment: DONA for 1) [facility] 2) [facility]angel[facility] DP export: 09/18/19 7:16 a Patient Name: JOYCE BULLARD Page [id number] at 1608 All edits/amendments must be made on the electronic document DICTATION DATE: 09/20/19 1607 MANUFACTURING ACCOUNTANT: JIMMY 09/20/19 160 RPT#: [id number] DC DATE: STATUS: ADM IN [facility] [address] [place] [address] END OF REPORT
[2019-09-20 17:55] VITALS: BP 107/49
--- NOTE | 2019-09-20 19:02 | NUR ---
AT REST WITH EYES CLOSED LCTA RESP EVEN AN UNLABORED CALL LIGHT IS IN REACH
[2019-09-20 20:30] VITALS: BP 159/55
--- NOTE | 2019-09-20 20:31 | MORECARE ---
CASE MANAGEMENT DISCHARGE SUMMARY PATIENT: JOYCE BULLARD UNIT: [id number] ADM DATE: 08/23/19 AGE: 69 : 48 SEX: F ROOM/BED: D.2687 AUTHOR: DALLAS,DOC PHYSICIAN: REFERRING PHYSICIAN: STANTON VERONICA MD DATE OF SERVICE: 09/20/19 Discharge Plan Patient Name: JOYCE BULLARD Facility: [facility]:[place] : 1950 Planned Disposition: Home Anticipated Discharge Date: Discharge Date: Expected LOS: Initial Reviewer: [id number] Initial Review Date: 08/27/2019 Generated: 09/20/19 9:31 pm Comments DCP- Discharge Planning Updated by [id number]: Jade Rueda on 09/18/19 7:[address] Updated notes faxed to [facility]. Possible pleurx on Saturday, so hopefully can DC to Saturday. CM will continue to follow and assist with discharge planning/needs. DCP- Discharge Planning Updated by [id number]: Jade Rueda on 09/14/19 10:[address] I called [facility] and gave a verbal report to Chloe. [facility] is ready to accept patient when she is medically stable for discharge and will continue to follow. CM will continue to follow and assist with discharge planning/needs. DCP- Discharge Planning Updated by [id number]: Jade Rueda on 09/10/19 7:[address] UPDATED CLINICAL AND NEGATIVE COVID FAXED TO [facility] FOR SNF PLACEMENT. CM WILL CONTINUE TO FOLLOW AND ASSIST WITH DISCHARGE PLANNING/NEEDS. DCP- Discharge Planning Updated by [id number]: Jade Rueda on 09/04/19 10:[address] Patient's sister, Yani Dwyer, called me concerned that her sister was being discharged home alone. States she is very weak and unable to care for herself. I have already spoken to Sharona Moran concerning this and a PT consult has been ordered. I spoke with the patient and she is in agreement to inpatient rehab at [facility] after her procedure on Saturday. Patient states she almost fell just trying to go to the bathroom. I instructed her to call a nurse before getting out of bed. I spoke with Shellie, at [facility] and she will need another walk test prior to going home if she is not discharged on Saturday. CM will continue to follow and assist with discharge planning/needs. Yani Dwyer - - [phone] DCP- Discharge Planning Updated by [id number]: Jade Reuda on 09/03/19 10:[address] Oxygen saturation is 88% on room air. I have called Shellie at [facility] and informed her of discharge today and need for portable to be brought to the hospital. Clinical faxed to [facility]. Patient is sleeping and not awakened for IMM at this time. CM will continue to follow and assist with discharge planning/needs. DCP- Discharge Planning Updated by [id number]: Jade Rueda on 08/27/19 4:[address] Patient Name: JOYCE BULLARD Admission Status: ER Accout number: [id number] Admission Date: 08-23-2019 : 1950 Admission Diagnosis:SHORTNESS OF BREATH Attending: STANTON VERONICA Current LOS: 4 Anticipated DC Date: Planned Disposition: Home Primary Insurance: MEDICARE A & B Discharge Planning Comments: CM met with patient to complete initial dc planning assessment. CM educated patient on the CM role and verbal consent given by patient to complete assessment. Patient lives at home alone. At discharge patient plans to return and feels this is a safe discharge. CM discussed availability of home health, rehab services, and medical equipment. Patient denied known discharge needs at this time. She gets her nebulizer supplies from [facility], so DONA for [facility] signed if oxygen is needed. She will need a qualifying walk test for home oxygen needs prior to discharge. CM will continue to follow and will assist as needed with dc plans/needs. Horticultural Farmer: Jade Rueda DCPIA - Discharge Planning Initial Assessment Updated by [id number]: Jade Rueda on 08/27/19 5:03 pm * Is the patient Alert and Oriented? Yes * How many steps to enter\exit or inside your home? 2/0 * PCP Dr. Sanford * Pharmacy [facility] 1 * Preadmission Environment Home Alone * ADLs Partial Dependent * Partial ADLs (Assistance needed) Ambulation * Equipment Cane Elevated [place] Seat Nebulizer Walker * List name and contact numbers for known caregivers / representatives who currently or will assist patient after discharge: Monica Osuna [facility] - [phone] Juan C Dwyer [phone] * Verbal permission to speak to the caregivers and representatives has been obtained from the patient. Yes * Community resources currently utilized None * Additional services required to return to the preadmission environment? No * Can the patient safely return to the preadmission environment? Yes * Has this patient been hospitalized within the prior 30 days at any hospital? No Coverage Notice Reviewer: [id number] Makenzie Rueda Notice Issued Date-Time: 08/27/2019 17:05 Notice Type: Patient Choice Letter Notice Delivered To: Patient Relationship to Patient: Self Asian Studies Program Chair Name: Delivery Method: HAND - Hand Delivered Inna Days: Prior Verbal Notification: Recipient Understood Notice: Yes Recipient Signature: Yes Med Rec Note Co-signed by Attending: Coverage Notice Comment: dona for [facility] Metal Furniture Polisher: [id number] Makenzie Rueda Notice Issued Date-Time: 09/08/2019 15:29 Notice Type: Patient Choice Letter Notice Delivered To: Patient Relationship to Patient: Self Asian Studies Program Chair Name: Delivery Method: HAND - Hand Delivered Inna Days: Prior Verbal Notification: Recipient Understood Notice: Yes Recipient Signature: Yes Med Rec Note Co-signed by Attending: Coverage Notice Comment: DONA for 1) [facility] 2) [facility]erson DP export: 09/20/19 3:07 p Patient Name: JOYCE BULLARD Page [id number] at 2030 All edits/amendments must be made on the electronic document DICTATION DATE: 09/20/192030 MAIN LINE ASSEMBLER: JIMMY 09/20/192030 RPT#: [id number] DC DATE: STATUS: ADM IN [facility] [address] [place] [address] END OF REPORT
--- NOTE | 2019-09-20 20:44 | MORECARE ---
CASE MANAGEMENT DISCHARGE SUMMARY PATIENT: JOYCE BULLARD UNIT: [id number] ADM DATE: 08/23/19 AGE: 69 : 48 SEX: F ROOM/BED: D.2108 AUTHOR: DALLAS,DOC PHYSICIAN: REFERRING PHYSICIAN: STANTON VERONICA MD DATE OF SERVICE: 09/20/19 Discharge Plan Patient Name: JOYCE BULLARD Facility: [facility]:[place] : 1950 Planned Disposition: Home Anticipated Discharge Date: Discharge Date: Expected LOS: Initial Reviewer: [id number] Initial Review Date: 08/27/2019 Generated: 09/20/19 9:44 pm Comments DCP- Discharge Planning Updated by [id number]: Eulalia Deleon on 09/20/19 7:[address] CM received notice for Hospice Consult. Patient would not arouse when CM came into room. CM spoke with Monica Osuna (family friend- not niece) that is listed as contact after multiple attempts. After speaking with Monica she referred CM to patient's sister Yani Dwyer [phone] to discuss Hospice consult. CM spoke with Yani after many attempts. CM explained that the patient had requested to be DNR and didn't want to anything else done so Dr. Reveles had requested Hospice. DONA for [facility] to evaluate for GIP if not GIP appropriate then patient will need placement and request Hospice consult. CM faxed records to [facility] and called for a referral. Edwin with [facility] was given [facility] number as contact. Edwin stated that he would be up later to evaluate patient. CM will continue to follow and assist as needed with discharge planning needs. DCP- Discharge Planning Updated by [id number]: Jade Rueda on 09/18/19 7:[address] Updated notes faxed to [facility]. Possible pleurx on Saturday, so hopefully can DC to Saturday. CM will continue to follow and assist with discharge planning/needs. DCP- Discharge Planning Updated by [id number]: Jade Rueda on 09/14/19 10:[address] I called [facility] and gave a verbal report to Chloe. [facility] is ready to accept patient when she is medically stable for discharge and will continue to follow. CM will continue to follow and assist with discharge planning/needs. DCP- Discharge Planning Updated by [id number]: Jade Rueda on 09/10/19 7:[address] UPDATED CLINICAL AND NEGATIVE COVID FAXED TO [facility] FOR SNF PLACEMENT. CM WILL CONTINUE TO FOLLOW AND ASSIST WITH DISCHARGE PLANNING/NEEDS. DCP- Discharge Planning Updated by [id number]: Jade Trevizorney on 09/04/19 10:[address] Patient's sister, Yani Dwyer, called me concerned that her sister was being discharged home alone. States she is very weak and unable to care for herself. I have already spoken to Sharona Moran concerning this and a PT consult has been ordered. I spoke with the patient and she is in agreement to inpatient rehab at [facility] after her procedure on Saturday. Patient states she almost fell just trying to go to the bathroom. I instructed her to call a nurse before getting out of bed. I spoke with Shellie, at [facility] and she will need another walk test prior to going home if she is not discharged on Saturday. CM will continue to follow and assist with discharge planning/needs. Yani Dwyer - sister - [phone] DCP- Discharge Planning Updated by [id number]: Jade Trevizoreny on 09/03/19 10:[address] Oxygen saturation is 88% on room air. I have called Shellie at [facility] and informed her of discharge today and need for portable to be brought to the hospital. Clinical faxed to [facility]. Patient is sleeping and not awakened for IMM at this time. CM will continue to follow and assist with discharge planning/needs. DCP- Discharge Planning Updated by [id number]: Jade Trevizoreny on 08/27/19 4:[address] Patient Name: JOYCE BULLARD Admission Status: ER Accout number: [id number] Admission Date: 08-23-2019 : 1950 Admission Diagnosis:SHORTNESS OF BREATH Attending: STANTON VERONICA Current LOS: 4 Anticipated DC Date: Planned Disposition: Home Primary Insurance: MEDICARE A & B Discharge Planning Comments: CM met with patient to complete initial dc planning assessment. CM educated patient on the CM role and verbal consent given by patient to complete assessment. Patient lives at home alone. At discharge patient plans to return and feels this is a safe discharge. CM discussed availability of home health, rehab services, and medical equipment. Patient denied known discharge needs at this time. She gets her nebulizer supplies from [employer], so DONA for [employer] signed if oxygen is needed. She will need a qualifying walk test for home oxygen needs prior to discharge. CM will continue to follow and will assist as needed with dc plans/needs. Lumber Loader: Jade Rueda DCPIA - Discharge Planning Initial Assessment Updated by [id number]: Jade Rueda on 08/27/19 5:03 pm * Is the patient Alert and Oriented? Yes * How many steps to enter\exit or inside your home? 2/0 * PCP Dr. Sanford * Pharmacy [facility] * Preadmission Environment Home Alone * ADLs Partial Dependent * Partial ADLs (Assistance needed) Ambulation * Equipment Cane Elevated [place] Seat Nebulizer Walker * List name and contact numbers for known caregivers / representatives who currently or will assist patient after discharge: Monica Osuna [facility] - [phone] Juan C Dwyer [phone] * Verbal permission to speak to the caregivers and representatives has been obtained from the patient. Yes * Community resources currently utilized None * Additional services required to return to the preadmission environment? No * Can the patient safely return to the preadmission environment? Yes * Has this patient been hospitalized within the prior 30 days at any hospital? No Coverage Notice Reviewer: [id number] Makenzie Rueda Notice Issued Date-Time: 08/27/2019 17:05 Notice Type: Patient Choice Letter Notice Delivered To: Patient Relationship to Patient: Self Threshing Department Supervisor Name: Delivery Method: HAND - Hand Delivered Inan Days: Prior Verbal Notification: Recipient Understood Notice: Yes Recipient Signature: Yes Med Rec Note Co-signed by Attending: Coverage Notice Comment: dona for [employer] Reviewer: [id number] Makenzie Rueda Notice Issued Date-Time: 09/08/2019 15:29 Notice Type: Patient Choice Letter Notice Delivered To: Patient Relationship to Patient: Self Threshing Department Supervisor Name: Delivery Method: HAND - Hand Delivered Inna Days: Prior Verbal Notification: Recipient Understood Notice: Yes Recipient Signature: Yes Med Rec Note Co-signed by Attending: Coverage Notice Comment: DONA for 1) [facility] 2) [employer] Last DP export: 09/20/19 7:31 p Patient Name: JOYCE BULLARD Page [id number] at 2043 All edits/amendments must be made on the electronic document DICTATION DATE: 09/20/192043 SKI PATROL: JIMMY 09/20/192043 RPT#: [id number] DC DATE: STATUS: ADM IN [facility] [address] [place] [address] END OF REPORT
[2019-09-21 04:30] VITALS: BP 129/43
[2019-09-21 06:32] LABS: INR 1.57 (0.85-1.17); PROTIME 18.6 SECONDS (11.6-15.0)
[2019-09-21 06:33] LABS: APTT 40.4 SECONDS (22.8-39.4)
[2019-09-21 06:47] LABS: ALBUMIN 2.5 g/dL (3.4-5.0); ANION GAP 12.5 mmol/L (8-16); BILIRUBIN - TOTAL 3.12 mg/dL (0.2-1.3); CALCIUM 8.7 mg/dL (8.5-10.1); CARBON DIOXIDE 25.1 mmol/L (21.0-32.0); CREATININE - SERUM 1.6 mg/dL (0.6-1.3); MAGNESIUM - SERUM 2.1 mg/dL (1.8-2.4); PROTEIN - SERUM 4.9 g/dL (6.4-8.2)
[2019-09-21 07:14] LABS: HEMOGLOBIN 8.8 g/dL (12-16); LYMPHOCYTES 10.8 % (15-50); MCH 29.9 pg (26.0-34.0); MCHC 32.6 g/dL (31.0-37.0); MCV 91.8 fL (80.0-100.0); MEAN PLATELET VOLUME 9.9 fL (7.4-10.4); NEUTROPHILS 65.6 % (40-80); RBC 2.94 10x6/uL (4.00-5.40); RDW 23.4 % (11.5-14.5); WBC 5.2 10x3/uL (4.8-10.8)
[2019-09-21 07:25] LABS: PLATELET COUNT 38 10x3/uL (130-400)
[2019-09-21 07:31] LABS: POTASSIUM - SERUM 2.6 mmol/L (3.5-5.1)
--- NOTE | 2019-09-21 09:15 | MORECARE ---
CASE MANAGEMENT DISCHARGE SUMMARY PATIENT: JOYCE BULLARD UNIT: [id number] ADM DATE: 08/23/19 AGE: 69 : 48 SEX: F ROOM/BED: D.2107 AUTHOR: DALLAS,DOC PHYSICIAN: REFERRING PHYSICIAN: STANTON VERONICA MD DATE OF SERVICE: 09/21/19 Discharge Plan Patient Name: JOYCE BULLARD Facility: [facility]:[place] : 1950 Planned Disposition: Home Anticipated Discharge Date: Discharge Date: Expected LOS: Initial Reviewer: [email or web address] Initial Review Date: 08/27/2019 Generated: 09/21/19 10:15 am Comments DCP- Discharge Planning Updated by [id number]: Jade Rueda on 09/21/19 8:[address] I met with patient to discuss hospice, she is lethargic. I called Bethany at [facility] and she is going to call her sister to sign papers. Bethany states ok for Pleurx drain prior to admission to [facility]. CM will continue to follow and assist with discharge planning/needs. DCP- Discharge Planning Updated by [id number]: Eulalia Deleon on 09/20/19 7:[address] CM received notice for Hospice Consult. Patient would not arouse when CM came into room. CM spoke with Monica Osuna (family friend- not niece) that is listed as contact after multiple attempts. After speaking with Monica she referred CM to patient's sister Yani Dwyer [phone] to discuss Hospice consult. CM spoke with Yani after many attempts. CM explained that the patient had requested to be DNR and didn't want to anything else done so Dr. Reveles had requested Hospice. DONA for [facility] to evaluate for GIP if not GIP appropriate then patient will need placement and request Hospice consult. CM faxed records to [facility] and called for a referral. Edwin with [facility] was given [facility] number as contact. Edwin stated that he would be up later to evaluate patient. CM will continue to follow and assist as needed with discharge planning needs. DCP- Discharge Planning Updated by [id number]: Jade Rueda on 09/18/19 7:[address] Updated notes faxed to [facility]. Possible pleurx on Saturday, so hopefully can DC to Saturday. CM will continue to follow and assist with discharge planning/needs. DCP- Discharge Planning Updated by [id number]: Jade Rueda on 09/14/19 10:[address] I called [facility] and gave a verbal report to Chloe. [facility] is ready to accept patient when she is medically stable for discharge and will continue to follow. CM will continue to follow and assist with discharge planning/needs. DCP- Discharge Planning Updated by [id number]: Jade Rueda on 09/10/19 7:[address] UPDATED CLINICAL AND NEGATIVE COVID FAXED TO [facility] FOR SNF PLACEMENT. CM WILL CONTINUE TO FOLLOW AND ASSIST WITH DISCHARGE PLANNING/NEEDS. DCP- Discharge Planning Updated by [id number]: Jade Rueda on 09/04/19 10:[address] Patient's sister, Yani Dwyer, called me concerned that her sister was being discharged home alone. States she is very weak and unable to care for herself. I have already spoken to Sharona Moran concerning this and a PT consult has been ordered. I spoke with the patient and she is in agreement to inpatient rehab at [facility] after her procedure on Saturday. Patient states she almost fell just trying to go to the bathroom. I instructed her to call a nurse before getting out of bed. I spoke with Shellie, at [facility] and she will need another walk test prior to going home if she is not discharged on Saturday. CM will continue to follow and assist with discharge planning/needs. Yani Dwyer - sister - [phone] DCP- Discharge Planning Updated by [id number]: Jade Rueda on 09/03/19 10:[address] Oxygen saturation is 88% on room air. I have called Shellie at [facility] and informed her of discharge today and need for portable to be brought to the hospital. Clinical faxed to [facility]. Patient is sleeping and not awakened for IMM at this time. CM will continue to follow and assist with discharge planning/needs. DCP- Discharge Planning Updated by [id number]: Jade Rueda on 08/27/19 4:[address] Patient Name: JOYCE BULLARD Admission Status: ER Accout number: [id number] Admission Date: 08-23-2019 : 1950 Admission Diagnosis:SHORTNESS OF BREATH Attending: STANTON VERONICA Current LOS: 4 Anticipated DC Date: Planned Disposition: Home Primary Insurance: MEDICARE A & B Discharge Planning Comments: CM met with patient to complete initial dc planning assessment. CM educated patient on the CM role and verbal consent given by patient to complete assessment. Patient lives at home alone. At discharge patient plans to return and feels this is a safe discharge. CM discussed availability of home health, rehab services, and medical equipment. Patient denied known discharge needs at this time. She gets her nebulizer supplies from [employer], so DONA for [employer] signed if oxygen is needed. She will need a qualifying walk test for home oxygen needs prior to discharge. CM will continue to follow and will assist as needed with dc plans/needs. Manager Math: Jade Rueda DCPIA - Discharge Planning Initial Assessment Updated by [id number]: Jade Rueda on 08/27/19 5:03 pm * Is the patient Alert and Oriented? Yes * How many steps to enter\exit or inside your home? 2/0 * PCP Dr. Sanford * Pharmacy [facility] * Preadmission Environment Home Alone * ADLs Partial Dependent * Partial ADLs (Assistance needed) Ambulation * Equipment Cane Elevated [place] Seat Nebulizer Walker * List name and contact numbers for known caregivers / representatives who currently or will assist patient after discharge: Monica Osuna [facility] - [phone] Juan C Dwyer [phone] * Verbal permission to speak to the caregivers and representatives has been obtained from the patient. Yes * Community resources currently utilized None * Additional services required to return to the preadmission environment? No * Can the patient safely return to the preadmission environment? Yes * Has this patient been hospitalized within the prior 30 days at any hospital? No Coverage Notice Reviewer: [id number] - Jade Rueda Notice Issued Date-Time: 08/27/2019 17:05 Notice Type: Patient Choice Letter Notice Delivered To: Patient Relationship to Patient: Self Letter Carrier Name: Delivery Method: HAND - Hand Delivered Inna Days: Prior Verbal Notification: Recipient Understood Notice: Yes Recipient Signature: Yes Med Rec Note Co-signed by Attending: Coverage Notice Comment: dona for [employer] Reviewer: [id number] Makenzie Jade Rueda Notice Issued Date-Time: 09/08/2019 15:29 Notice Type: Patient Choice Letter Notice Delivered To: Patient Relationship to Patient: Self Letter Carrier Name: Delivery Method: HAND - Hand Delivered Inna Days: Prior Verbal Notification: Recipient Understood Notice: Yes Recipient Signature: Yes Med Rec Note Co-signed by Attending: Coverage Notice Comment: DONA for 1) [facility] 2) [facility] DP export: 09/20/19 7:44 p Patient Name: JOYCE BULLARD Page [id number] at 0915 All edits/amendments must be made on the electronic document DICTATION DATE: 09/21/19914 COMMERCIAL ILLUSTRATOR: JIMMY 09/21/19914 RPT#: [id number] DC DATE: STATUS: ADM IN [facility] [address] [place] [address] END OF REPORT
[2019-09-21 09:51] VITALS: BP 144/50
[2019-09-21] MEDS ORDERED: CHRONULAC30 ML PO (11:27)
[2019-09-21] MEDS ORDERED: LASIX40 MG PO (11:28)
[2019-09-21] MEDS ORDERED: COLACE100 MG PO (11:29)
--- NOTE | 2019-09-21 11:56 | MORECARE ---
CASE MANAGEMENT DISCHARGE SUMMARY PATIENT: JOYCE BULLARD UNIT: [id number] ADM DATE: 08/23/19 AGE: 69 : 48 SEX: F ROOM/BED: D.2108 AUTHOR: DALLAS,DOC PHYSICIAN: REFERRING PHYSICIAN: STANTON VERONICA MD DATE OF SERVICE: 09/21/19 Discharge Plan Patient Name: JOYCE BULLARD Facility: [facility]:[place] : 1950 Planned Disposition: Home Anticipated Discharge Date: Discharge Date: Expected LOS: Initial Reviewer: [email or web address] Initial Review Date: 08/27/2019 Generated: 09/21/19 12:55 pm Comments DCP- Discharge Planning Updated by [email or web address]: Jade Rueda on 09/21/19 10:[address] Patient has been accepted for [facility]. I spoke with patient's sister, Ms. Dwyer, and she is in agreement to discharge to [facility] today. DCS and meds faxed to [facility]. Report to be called to [phone]. She will be EMS transported when they call and state they are ready for her. DCP- Discharge Planning Updated by [id number]: aJde Rueda on 09/21/19 8:[address] I met with patient to discuss hospice, she is lethargic. I called Bethany at [facility] and she is going to call her sister to sign papers. Bethany states ok for Pleurx drain prior to admission to [facility]. CM will continue to follow and assist with discharge planning/needs. DCP- Discharge Planning Updated by [email or web address]: Eulalia Deleon on 09/20/19 7:[address] CM received notice for Hospice Consult. Patient would not arouse when CM came into room. CM spoke with Monica Osuna (family friend- not niece) that is listed as contact after multiple attempts. After speaking with Monica she referred CM to patient's sister Yani Dwyer [phone] to discuss Hospice consult. CM spoke with Yani after many attempts. CM explained that the patient had requested to be DNR and didn't want to anything else done so Dr. Reveles had requested Hospice. DONA for [facility] to evaluate for GIP if not GIP appropriate then patient will need placement and request Hospice consult. CM faxed records to [facility] and called for a referral. Edwin with [facility] was given [facility] as contact. Edwin stated that he would be up later to evaluate patient. CM will continue to follow and assist as needed with discharge planning needs. DCP- Discharge Planning Updated by [id number]: Jade Rueda on 09/18/19 7:[address] Updated notes faxed to [facility]. Possible pleurx on Saturday, so hopefully can DC to Saturday. CM will continue to follow and assist with discharge planning/needs. DCP- Discharge Planning Updated by [id number]: Jade Rueda on 09/14/19 10:[address] I called [facility] and gave a verbal report to Chloe. [facility] is ready to accept patient when she is medically stable for discharge and will continue to follow. CM will continue to follow and assist with discharge planning/needs. DCP- Discharge Planning Updated by [id number]: Jade Rueda on 09/10/19 7:[address] UPDATED CLINICAL AND NEGATIVE COVID FAXED TO [facility] FOR SNF PLACEMENT. CM WILL CONTINUE TO FOLLOW AND ASSIST WITH DISCHARGE PLANNING/NEEDS. DCP- Discharge Planning Updated by [email or web address]: Jade Rueda on 09/04/19 10:[address] Patient's sister, Yani Dwyer, called me concerned that her sister was being discharged home alone. States she is very weak and unable to care for herself. I have already spoken to Sharona Moran concerning this and a PT consult has been ordered. I spoke with the patient and she is in agreement to inpatient rehab at [facility] after her procedure on Saturday. Patient states she almost fell just trying to go to the bathroom. I instructed her to call a nurse before getting out of bed. I spoke with Shellie, at [facility] and she will need another walk test prior to going home if she is not discharged on Saturday. CM will continue to follow and assist with discharge planning/needs. Yani Dwyer - sister - [phone] DCP- Discharge Planning Updated by [id number]: Jade Rueda on 09/03/19 10:[address] Oxygen saturation is 88% on room air. I have called Shellie at [facility] and informed her of discharge today and need for portable to be brought to the hospital. Clinical faxed to [facility]. Patient is sleeping and not awakened for IMM at this time. CM will continue to follow and assist with discharge planning/needs. DCP- Discharge Planning Updated by [id number]: Jade Rueda on 08/27/19 4:[address] Patient Name: JOYCE BULLARD Admission Status: ER Accout number: [id number] Admission Date: 08-23-2019 : 1950 Admission Diagnosis:SHORTNESS OF BREATH Attending: STANTON VERONICA Current LOS: 4 Anticipated DC Date: Planned Disposition: Home Primary Insurance: MEDICARE A & B Discharge Planning Comments: CM met with patient to complete initial dc planning assessment. CM educated patient on the CM role and verbal consent given by patient to complete assessment. Patient lives at home alone. At discharge patient plans to return and feels this is a safe discharge. CM discussed availability of home health, rehab services, and medical equipment. Patient denied known discharge needs at this time. She gets her nebulizer supplies from [facility], so DONA for [facility] signed if oxygen is needed. She will need a qualifying walk test for home oxygen needs prior to discharge. CM will continue to follow and will assist as needed with dc plans/needs. Laboratory Scientist: Jade Rueda DCPIA - Discharge Planning Initial Assessment Updated by [id number]: Jade Rueda on 08/27/19 5:03 pm * Is the patient Alert and Oriented? Yes * How many steps to enter\exit or inside your home? 2/0 * PCP Dr. Sanford * Pharmacy [facility] * Preadmission Environment Home Alone * ADLs Partial Dependent * Partial ADLs (Assistance needed) Ambulation * Equipment Cane Elevated [place] Seat Nebulizer Walker * List name and contact numbers for known caregivers / representatives who currently or will assist patient after discharge: Monica Osuna - [place] - [phone] Juan C Dwyer - [phone] * Verbal permission to speak to the caregivers and representatives has been obtained from the patient. Yes * Community resources currently utilized None * Additional services required to return to the preadmission environment? No * Can the patient safely return to the preadmission environment? Yes * Has this patient been hospitalized within the prior 30 days at any hospital? No Coverage Notice Reviewer: [id number] Makenzie Rueda Notice Issued Date-Time: 08/27/2019 17:05 Notice Type: Patient Choice Letter Notice Delivered To: Patient Relationship to Patient: Self Geomatics Professor Name: Delivery Method: HAND - Hand Delivered Inna Days: Prior Verbal Notification: Recipient Understood Notice: Yes Recipient Signature: Yes Med Rec Note Co-signed by Attending: Coverage Notice Comment: dona for [facility] Building Inspector: [id number] Makenzie Rueda Notice Issued Date-Time: 09/08/2019 15:29 Notice Type: Patient Choice Letter Notice Delivered To: Patient Relationship to Patient: Self Geomatics Professor Name: Delivery Method: HAND - Hand Delivered Inna Days: Prior Verbal Notification: Recipient Understood Notice: Yes Recipient Signature: Yes Med Rec Note Co-signed by Attending: Coverage Notice Comment: DONA for 1) [facility] 2) [facility]angelo DP export: 09/21/19 8:15 a Patient Name: JOYCE BULLARD Page [id number] at 1156 All edits/amendments must be made on the electronic document DICTATION DATE: 09/21/19 1155 SOCIAL SERVICE AGENCY DIRECTOR: JIMMY 09/21/19 1155 RPT#: [id number] DC DATE: STATUS: ADM IN [facility] [address] [place] [address] END OF REPORT
--- NOTE | 2019-09-21 12:56 | NUR ---
PT FAMILY ARRIVED AND REMOVED ALL PERSONAL BELONGINGS. WAITING ON BED FROM [facility].
--- NOTE | 2019-09-21 14:16 | NUR ---
SPOKE WITH [facility], STATES THEY WILL SEND AMBULANCE SHORTLY. WILL CNT. TO MONITOR.
--- NOTE | 2019-09-21 15:42 | NUR ---
PT HAS BEEN ALERT AND ORIENTED BUT LETHARGIC. DIFFICULT TO ROUSE AT TIMES. WAITING ON AMBULANCE TO GO TO [facility]. CL INR EACH, SRX2.
--- NOTE | 2019-09-21 15:57 | NUR ---
PT ESCORTED OUT VIA AMBULANCE.
[2019-09-22 06:10] LABS: FUNGUS MYCOLOGY CULTURE Final report (())
--- NOTE | 2019-09-22 10:19 | MORECARE ---
CASE MANAGEMENT DISCHARGE SUMMARY PATIENT: JOYCE BULLARD UNIT: [id number] ADM DATE: 08/23/19 AGE: 69 : 46 SEX: F ROOM/BED: D.2107 AUTHOR: DALLAS,DOC PHYSICIAN: REFERRING PHYSICIAN: STANTON VERONICA MD DATE OF SERVICE: 09/22/19 Discharge Plan Patient Name: JOYCE BULLARD Facility: [facility]:[place] : 1950 Planned Disposition: Home Anticipated Discharge Date: Discharge Date: 09/21/2019 Expected LOS: Initial Reviewer: [id number] Initial Review Date: 08/27/2019 Generated: 09/22/19 11:18 am Comments DCP- Discharge Planning Updated by [email or web address]: Jade Trevizoreny on 09/21/19 10:[address] Patient has been accepted for [facility]. I spoke with patient's sister, Ms. Dwyer, and she is in agreement to discharge to [facility] today. DCS and meds faxed to [facility]. Report to be called to [phone]. She will be EMS transported when they call and state they are ready for her. DCP- Discharge Planning Updated by [email or web address]: Jade Rueda on 09/21/19 8:[address] I met with patient to discuss hospice, she is lethargic. I called Bethany at [facility] and she is going to call her sister to sign papers. Bethany states ok for Pleurx drain prior to admission to [facility]. CM will continue to follow and assist with discharge planning/needs. DCP- Discharge Planning Updated by [email or web address]: Eulalia Deleon on 09/20/19 7:[address] CM received notice for Hospice Consult. Patient would not arouse when CM came into room. CM spoke with Monica Osuna (family friend- not niece) that is listed as contact after multiple attempts. After speaking with Monica she referred CM to patient's sister Yani Dwyer [phone] to discuss Hospice consult. CM spoke with Yani after many attempts. CM explained that the patient had requested to be DNR and didn't want to anything else done so Dr. Reveles had requested Hospice. DONA for [facility] to evaluate for GIP if not GIP appropriate then patient will need placement and request Hospice consult. CM faxed records to [facility] and called for a referral. Edwin with [facility] was given Yani micha as contact. Edwin stated that he would be up later to evaluate patient. CM will continue to follow and assist as needed with discharge planning needs. DCP- Discharge Planning Updated by [email or web address]: Jade Rueda on 09/18/19 7:[address] Updated notes faxed to [facility]. Possible pleurx on Saturday, so hopefully can DC to Saturday. CM will continue to follow and assist with discharge planning/needs. DCP- Discharge Planning Updated by [email or web address]: Jade Rueda on 09/14/19 10:[address] I called [facility] and gave a verbal report to Chloe. [facility] is ready to accept patient when she is medically stable for discharge and will continue to follow. CM will continue to follow and assist with discharge planning/needs. DCP- Discharge Planning Updated by [email or web address]: Jade Rueda on 09/10/19 7:[address] UPDATED CLINICAL AND NEGATIVE COVID FAXED TO [facility] FOR SNF PLACEMENT. CM WILL CONTINUE TO FOLLOW AND ASSIST WITH DISCHARGE PLANNING/NEEDS. DCP- Discharge Planning Updated by [email or web address]: Jade Rueda on 09/04/19 10:[address] Patient's sister, Yani Dwyer, called me concerned that her sister was being discharged home alone. States she is very weak and unable to care for herself. I have already spoken to Sharona Moran concerning this and a PT consult has been ordered. I spoke with the patient and she is in agreement to inpatient rehab at [facility] after her procedure on Saturday. Patient states she almost fell just trying to go to the bathroom. I instructed her to call a nurse before getting out of bed. I spoke with Shellie, at [facility] and she will need another walk test prior to going home if she is not discharged on Saturday. CM will continue to follow and assist with discharge planning/needs. Yani Dwyer - sister - [phone] DCP- Discharge Planning Updated by [email or web address]: Jade Rueda on 09/03/19 10:[address] Oxygen saturation is 88% on room air. I have called Shellie at [facility] and informed her of discharge today and need for portable to be brought to the hospital. Clinical faxed to [facility]. Patient is sleeping and not awakened for IMM at this time. CM will continue to follow and assist with discharge planning/needs. DCP- Discharge Planning Updated by [email or web address]: Jade Rueda on 08/27/19 4:[address] Patient Name: JOYCE BULLARD Admission Status: ER Accout number: [id number] Admission Date: 08-23-2019 : 1950 Admission Diagnosis:SHORTNESS OF BREATH Attending: STANTON VERONICA Current LOS: 4 Anticipated DC Date: Planned Disposition: Home Primary Insurance: MEDICARE A & B Discharge Planning Comments: CM met with patient to complete initial dc planning assessment. CM educated patient on the CM role and verbal consent given by patient to complete assessment. Patient lives at home alone. At discharge patient plans to return and feels this is a safe discharge. CM discussed availability of home health, rehab services, and medical equipment. Patient denied known discharge needs at this time. She gets her nebulizer supplies from [employer] [facility], so DONA for [facility] signed if oxygen is needed. She will need a qualifying walk test for home oxygen needs prior to discharge. CM will continue to follow and will assist as needed with dc plans/needs. Helper Metal Hanging: Jade Rueda DCPIA - Discharge Planning Initial Assessment Updated by [email or web address]: Jade Rueda on 08/27/19 5:03 pm * Is the patient Alert and Oriented? Yes * How many steps to enter\exit or inside your home? 2/0 * PCP Dr. Sanford * Pharmacy [facility] * Preadmission Environment Home Alone * ADLs Partial Dependent * Partial ADLs (Assistance needed) Ambulation * Equipment Cane Elevated [place] Seat Nebulizer Walker * List name and contact numbers for known caregivers / representatives who currently or will assist patient after discharge: Monica terry - [phone] Juan C Dwyer - [phone] * Verbal permission to speak to the caregivers and representatives has been obtained from the patient. Yes * Community resources currently utilized None * Additional services required to return to the preadmission environment? No * Can the patient safely return to the preadmission environment? Yes * Has this patient been hospitalized within the prior 30 days at any hospital? No Coverage Notice Reviewer: [id number] Makenzie Rueda Notice Issued Date-Time: 08/27/2019 17:05 Notice Type: Patient Choice Letter Notice Delivered To: Patient Relationship to Patient: Self Lab Engineer Name: Delivery Method: HAND - Hand Delivered Inna Days: Prior Verbal Notification: Recipient Understood Notice: Yes Recipient Signature: Yes Med Rec Note Co-signed by Attending: Coverage Notice Comment: dona for [facility] Motorboat Mechanic Helper: [id number] Makenzie Rueda Notice Issued Date-Time: 09/08/2019 15:29 Notice Type: Patient Choice Letter Notice Delivered To: Patient Relationship to Patient: Self Lab Engineer Name: Delivery Method: HAND - Hand Delivered Inna Days: Prior Verbal Notification: Recipient Understood Notice: Yes Recipient Signature: Yes Med Rec Note Co-signed by Attending: Coverage Notice Comment: [facility] for 1) [facility] 2) [facility] DP export: 09/21/19 10:56 a Patient Name: JOYCE BULLARD Page [id number] at 1019 All edits/amendments must be made on the electronic document DICTATION DATE: 09/22/19 1018 PROGRAMS DIRECTOR: JIMMY 09/22/19 1018 RPT#: [id number] DC DATE:09/21/19 STATUS: DIS IN [facility] [address] [place] [address] END OF REPORT
== END 2019-09-21 15:59 | disposition hospice, inpatient (51) | DRG 441 ==
LOC: D.ER 09:00 → D.M2 11:04 → D.SDCHOLD 08-28 12:36 → D.M2 08-28 13:46
PROVIDERS: Family Medicine; Family Medicine Adult Medicine; General Practice; Internal Medicine; Internal Medicine Nephrology; Internal Medicine Pulmonary Disease; Radiology Diagnostic Radiology; Radiology Vascular & Interventional Radiology; ADMIT Internal Medicine Nephrology; ATTEND Internal Medicine Nephrology
PROC: 0W993ZZ Drainage of Right Pleural Cavity, Percutaneous Approach (ICD-10-PCS; principal; 2019-08-23)
PROC: 0W993ZZ Drainage of Right Pleural Cavity, Percutaneous Approach (ICD-10-PCS; 2019-09-01)
PROC: 0W993ZZ Drainage of Right Pleural Cavity, Percutaneous Approach (ICD-10-PCS; 2019-09-16)
DX: K75.81 Nonalcoholic steatohepatitis (NASH) (principal); J96.01 Acute respiratory failure with hypoxia; J18.9 Pneumonia, unspecified organism; E43 Unspecified severe protein-calorie malnutrition; J47.0 Bronchiectasis with acute lower respiratory infection; J90 Pleural effusion, not elsewhere classified; D61.818 Other pancytopenia; E87.1 Hypo-osmolality and hyponatremia; J98.11 Atelectasis; N17.9 Acute kidney failure, unspecified; I50.30 Unspecified diastolic (congestive) heart failure; I13.0 Hypertensive heart and chronic kidney disease with heart failure and stage 1 through stage 4 chronic kidney disease, or unspecified chronic kidney disease; R79.89 Other specified abnormal findings of blood chemistry; E03.9 Hypothyroidism, unspecified; K74.60 Unspecified cirrhosis of liver; E87.6 Hypokalemia; I48.91 Unspecified atrial fibrillation; N18.9 Chronic kidney disease, unspecified; Z86.73 Personal history of transient ischemic attack (TIA), and cerebral infarction without residual deficits; Z68.27 Body mass index [BMI] 27.0-27.9, adult; G72.89 Other specified myopathies